=== PATIENT | female | born 1945 | race Caucasian/White ===

== ENCOUNTER 2017-10-05 16:15 | Emergency (ER) | payer MEDICARE, BC ==
[2017-10-05 16:26] VITALS: BP 145/91; PULSE 77; RESP 16; TEMP 98
--- NOTE | 2017-10-05 17:15 | ED ---
General Adult HPI - General Chief complaint: Back Pain/Injury Stated complaint: Fall-Back Pain Time Seen by Provider: 10/05/17 16:28 Source: patient, RN notes reviewed Mode of arrival: wheelchair Limitations: no limitations - History of Present Illness Initial comments: Patient 72-year-old female presenting to the emergency room today with a chief complaint of lower back pain with radicular pain in both right and left leg. She does admit that she's had a history of chronic back pain. States that she' s been following up for this. She states that recently he began having some increased pain radiating down to the legs both left and right side. Patient states pain shoots down to the cafeteria bilaterally. Denies any bowel or bladder incontinence retention. Denies any saddle anesthesia. Patient states that she feels like her legs are weaker. Feels unsteady on her feet at times particularly when she goes up or down steps. Patient states she did have a fall today where she tripped up over the left leg falling down onto her knees bilaterally. Patient states her head injury and no other injury to her back or her knees. She states that this feels the same but she is concerned about the weakness. She most recently saw orthopedics for this yesterday. States that she was advised there was not much that he could do for him was advised to see pain management. She's been taking ibuprofen. Patient states that she did take one leftover steroid that she had 10 mg of prednisone. Patient denies any other complaints at this time.Patient denies any recent fever, chills, shortness of breath, chest pain, back pain, abdominal pain, nausea or vomiting, numbness or tingling, dysuria or hematuria, constipation or diarrhea, headaches or visual changes, or any other complaints. - Related Data Home Medications Medication Instructions Recorded Confirmed Albuterol Nebulized [Ventolin 2.5 mg INHALATION RT-Q6H PRN 10/05/17 10/05/17 Nebulized] Albuterol Sulfate [Proair Hfa] 2 puff INHALATION RT-Q6H PRN 10/05/17 10/05/17 Cholecalciferol [Vitamin D3] 1,000 unit PO DAILY 10/05/17 10/05/17 Glimepiride [Amaryl] 0.5 mg PO BID 10/05/17 10/05/17 Hydrochlorothiazide [Hydrodiuril] 50 mg PO DAILY 10/05/17 10/05/17 LORazepam [Ativan] 0.5 mg PO HS PRN 10/05/17 10/05/17 Metoprolol Tartrate [Lopressor] 100 mg PO BID 10/05/17 10/05/17 Naproxen Sodium [Aleve] 440 mg PO BID 10/05/17 10/05/17 Potassium Chloride [K-Tab ER] 20 meq PO DAILY 10/05/17 10/05/17 Zolpidem [Ambien] 10 mg PO HS 10/05/17 10/05/17 Previous Rx's Medication Instructions Recorded Cyclobenzaprine [Flexeril] 10 mg PO TID #20 tab 10/05/17 Dexamethasone 0.75 mg PO DIRECTED #12 tablet 10/05/17 Allergies Allergy/AdvReac Type Severity Reaction Status Date / Time levofloxacin [From Levaquin] AdvReac Confusion Verified 10/05/17 16:26 Review of Systems ROS Statement: Those systems with pertinent positive or pertinent negative responses have been documented in the HPI. ROS Other: All systems not noted in ROS Statement are negative. Past Medical History Past Medical History: Diabetes Mellitus, Hypertension History of Any Multi-Drug Resistant Organisms: None Reported Past Surgical History: Orthopedic Surgery Additional Past Surgical History / Comment(s): Cartaract surgery Past Psychological History: Anxiety Smoking Status: Never smoker Past Alcohol Use History: None Reported Past Drug Use History: None Reported General Exam - General Exam Comments Initial Comments: General: The patient is awake and alert, in no distress, and does not appear acutely ill. Eye: Pupils are equal, round and reactive to light, extra-ocular movements are intact. No nystagmus. There is normal conjunctiva bilaterally. No signs of icterus. Ears, nose, mouth and throat: There are moist mucous membranes and no oral lesions. Neck: The neck is supple, there is no tenderness or JVD. Musculoskeletal: Normal ROM, no tenderness. Strength 5/5. Sensation intact. Pulses equal bilaterally 2+. Patient has been Rodriguez here in the emergency room walking to the bathroom and back without any assistance. Neurological: A&O x 3. CN II-XII intact, There are no obvious motor or sensory deficits. Coordination appears grossly intact. Speech is normal. Skin: Skin is warm and dry and no rashes or lesions are noted. Psychiatric: Cooperative, appropriate mood & affect, normal judgment. Limitations: no limitations Course Vital Signs 10/05/17 16:22 Temperature 98.0 F Pulse Rate 77 Respiratory 16 Rate Blood Pressure 145/91 O2 Sat by Pulse 95 Oximetry Medical Decision Making - Medical Decision Making Case discussed in detail with attending physician Dr. Skelton. Patient reexamined at this time shows no signs of distress resting comfortably. Patient strength 5/5. Patient does have pain shooting down both left and right leg has been increasing. Patient has no saddle anesthesia. No bowel or bladder incontinence retention. At this time patient will be started on a muscle relaxer advised to use this first see if there is any relief of her symptoms. She will be given this prescription to go home as she does not have a ride home. Patient also be given a prescription for steroid. She is a diabetic. She is advised that this will elevate her blood sugars and to continue to monitor these. She is advised close follow-up over the next 2 days to try to set up a MRI with family doctor. Advised return if symptoms increase worsen. Patient states understanding and is in agreement. Disposition Clinical Impression: Lumbar radiculopathy Disposition: HOME SELF-CARE Condition: Good Instructions: Lumbar Radiculopathy (ED) Additional Instructions: Please follow-up the family doctor tomorrow as discussed to try to set up MRI. Please use medications as discussed. Please return here to the emergency room if symptoms increase or worsen or for new concerns. Prescriptions: Cyclobenzaprine [Flexeril] 10 mg PO TID #20 tab Dexamethasone 0.75 mg PO DIRECTED #12 tablet Is patient prescribed a controlled substance at d/c from ED?: No Referrals: Harlan Reid MD [Primary Care Provider] - 1-2 days Time of Disposition: 17:16
== END 2017-10-05 17:43 | disposition home or self-care (01) ==
LOC: EC 16:15
DX: M54.16 Radiculopathy, lumbar region (principal); E11.9 Type 2 diabetes mellitus without complications; I10 Essential (primary) hypertension; Z79.1 Long term (current) use of non-steroidal anti-inflammatories (NSAID); Z79.84 Long term (current) use of oral hypoglycemic drugs; Z79.899 Other long term (current) drug therapy; Z88.1 Allergy status to other antibiotic agents; W01.0XXA Fall on same level from slipping, tripping and stumbling without subsequent striking against object, initial encounter
CPT/HCPCS: 99283

== ENCOUNTER → 2017-11-18 | Outpatient (CLI) | payer MEDICARE, BC ==
[2017-11-18 14:28] LABS: Blood Urea Nitrogen 16 mg/dL (7-17)
--- NOTE | 2017-11-18 16:07 | CT ---
EXAMINATION TYPE: CT angio chest DATE OF EXAM: 11/18/2017 COMPARISON: Chest x-ray dated 08/30/2017 HISTORY: Recent laminectomy, concerns with shortness of breath CT DLP: 639 mGycm Automated exposure control for dose reduction was used. CONTRAST: CTA scan of the thorax is performed with IV Contrast, patient injected with 100 mL of Isovue 370, pul monary embolism protocol. MIP images are created and reviewed. 3D reconstructed images are created on an independent workstation and reviewed. FINDINGS: LUNGS: There are air bronchograms present at the right lung base along the elevated right hemidiaphra gm similar to chest x-ray, findings may be chronic and due to scarring. Emphysematous changes are pre sent especially at the apices. There is some artifact due to patient's shoulder arthroplasty obscurin g some detail, some minimal pleural thickening suspected superiorly along the posterior aspect of the lungs. AORTA: No additional significant abnormality is seen. MEDIASTINUM: Borderline enlarged node present at the aorticopulmonary window. No filling defect withi n the pulmonary arteries to suggest pulmonary embolism. There is a hiatal hernia present. OTHER: Degenerative disc changes are present in the visualized spine. Possible nonobstructive calcul us present within the right kidney at the upper and lower pole. Surgical clips present in the gallbla dder fossa, gallbladder is absent. The liver is enlarged. There is colonic interposition anterior to the liver. Postop change suspected within the subcutaneous tissues superficial to the posterior lumba r spine. IMPRESSION: NO EVIDENT PULMONARY EMBOLISM. CORRELATE TO EXCLUDE PNEUMONIA, CHRONIC ELEVATION OF THE RIGHT HEMIDIA PHRAGM WITH POSSIBLE ASSOCIATED ATELECTASIS OR SCARRING. EMPHYSEMA. BORDERLINE ENLARGED MEDIASTINAL L YMPH NODE. SUSPECT RIGHT NONOBSTRUCTIVE NEPHROLITHIASIS. POSTOP CHANGES. ADDITIONAL FINDINGS ABOVE.
== END | disposition home or self-care (01) ==
LOC: RADCTMAIN 13:55
PROVIDERS: ATTEND Internal Medicine Critical Care Medicine
DX: J43.9 Emphysema, unspecified (principal); R59.0 Localized enlarged lymph nodes
CPT/HCPCS: 82565; 84520; 71275; 36415; Q9967

== ENCOUNTER 2019-02-04 22:11 | Emergency (ER) | payer MEDICARE, BC ==
--- NOTE | 2019-02-04 22:41 | ED ---
General Adult HPI - General Stated complaint: Fall Time Seen by Provider: 02/04/19 22:17 - History of Present Illness Initial comments: Chief complaint history of present illness this is a 73-year-old female here with her son. The gait patient came via EMS. The patient was at a family function. She reportedly had one and a half glasses of wine. She's bending over to look at a baby tripped falling bumping her head on a chair. The patient was momentarily unconscious for less than 5 seconds per family. But she was mildly confused for several minutes. This time the patient reports she remembers hearing her son's voice. Otherwise no nausea no vomiting. She denies any numbness or tingling. She does present with a 1 inch laceration in the middle of her forehead. Mild neck discomfort. Patient presented emergency room with a [place] collar on but she removed it. No numbness no tingling to her extremities - Related Data Home Medications Medication Instructions Recorded Confirmed Hydrochlorothiazide [Hydrodiuril] 50 mg PO DAILY 10/05/17 02/04/19 Metoprolol Tartrate [Lopressor] 100 mg PO BID 10/05/17 02/04/19 Potassium Chloride [K-Tab ER] 20 meq PO DAILY 10/05/17 02/04/19 Acetaminophen Tab [Tylenol Tab] 650 mg PO Q6H PRN 02/04/19 02/04/19 Cephalexin [Keflex] 500 mg PO Q12H 02/04/19 02/04/19 Dulaglutide [Trulicity] 1.5 mg SQ SA 02/04/19 02/04/19 Uro Blue 1 tab PO TID PRN 02/04/19 02/04/19 Zolpidem [Ambien] 10 mg PO HS 02/04/19 02/04/19 metFORMIN HCL ER [Glucophage Xr] 500 mg PO BID 02/04/19 02/04/19 Allergies Allergy/AdvReac Type Severity Reaction Status Date / Time levofloxacin [From Levaquin] AdvReac Confusion Verified 02/04/19 22:48 Review of Systems ROS Statement: Those systems with pertinent positive or pertinent negative responses have been documented in the HPI. Review of systems. The patient has mild headache. No change in visual acuity. She does have a 1 inch laceration of middle of her forehead. Mild discomfort to her neck. The patient removed her c-collar. Denies any chest pain shows breath GI/ problems. All systems reviewed. No evidence of any neuro deficits. Past medical problems significant for currently being treated for UTI the patient's urine is blue in color from medications taking in addition to the Keflex. Patient has diabetes type 2, hypertension and COPD. Surgeries include back, gallbladder, hysterectomy, kidney stones and shoulder surgery. Family history cancers include a son who of colon cancer at age of 49 and her father had esophageal carcinoma. The son who is at bedside was reminded to get his colonoscopies. Patient's an ex-smoker quit 20 years ago. She did have 2 glasses of wine prior to the fall. Patient denies any ALLERGIES a certain odors cause her to be short of breath ROS Other: All systems not noted in ROS Statement are negative. Past Medical History Past Medical History: Diabetes Mellitus, Hypertension History of Any Multi-Drug Resistant Organisms: None Reported Past Surgical History: Orthopedic Surgery Additional Past Surgical History / Comment(s): Cartaract surgery Past Psychological History: Anxiety Smoking Status: Never smoker Past Alcohol Use History: None Reported Past Drug Use History: None Reported General Exam - General Exam Comments Initial Comments: General: The patient is awake and alert, patient arrived via EMS after stumbling and falling and bumping her head. She presents with a laceration in the middle of her for it. Denies nausea or vomiting. Eye: Pupils are equal, round and reactive to light, extra-ocular movements are intact; there is normal conjunctiva bilaterally. No signs of icterus. Ears, nose, mouth and throat: There are moist mucous membranes and no oral lesions. Neck: The neck is supple, patient states on examination and questioning that she has mild neck discomfort. Cardiovascular: No chest pain or chest wall pain no complaint of palpitations. Respiratory: No complaint of shortness of breath noted she appeared short of breath. Gastrointestinal: No abdominal discomfort Back: No back pain, able to twist without difficulty Musculoskeletal: Normal ROM, no tenderness, There is no pedal edema. There is no calf tenderness or swelling. Sensation intact. Pulses equal bilaterally 2+. Neurological: CN II-XII intact, There are no obvious motor or sensory deficits. Coordination appears grossly intact. Speech is normal. No focal or lateralizing findings Skin: Skin is warm and dry and no rashes or lesions are noted. Psychiatric: Cooperative, appropriate mood & affect, normal judgment. Course Vital Signs 02/04/19 22:11 Temperature 97.6 F Pulse Rate 101 H Respiratory 18 Rate Blood Pressure 122/83 O2 Sat by Pulse 95 Oximetry Procedures - [place] Protocol (Time Out) Procedure Performed:: Laceration repair - Laceration Laceration #1 Consent Obtained: verbal consent Indication: laceration Site: face Size (cm): 2 (Mildly irregular edges) Description: linear Depth: involves muscle layer Sedation/Analgesia: none Anesthetic Used: lidocaine 1%, without epi Anesthesia Technique: local infiltration Amount (mls): 5 Pre-repair: wound explored, irrigated extensively Type of Sutures: nylon, vicryl Size of Sutures: 6-0 Number of Sutures: 6 Technique: simple, interrupted Patient Tolerated Procedure: well Medical Decision Making - Medical Decision Making Medical decision making; this is a 73-year-old female here with her son. The pa tient bent over at home falling forward causing a laceration to her head and temporary loss of consciousness. No neuro deficits found. CT of the brain and cervical spine were done and the radiologist's impression of the cervical spine and cervical spine without intravenous contrast vertebral, no acute fracture. Disc spinal canal neural foramina, multilevel degenerative disc disease. Mild spinal canal stenosis at C4-C5, C5-C6, C6-C7 secondary to degenerative changes. No acute fracture or subluxation. Soft tissue severe pulmonary central lobar emphysema. The patient's CT of the head showed no acute hemorrhage, hydrocephalus, or mass effect. As read by Dr. Del Toro Patient had the wound cleaned and anesthetized and sutured. See suture no. Patient will have sutures removed in 5 days or earlier should be signs of infection. Disposition Clinical Impression: Concussion, Laceration Disposition: HOME SELF-CARE Condition: Fair Instructions (If sedation given, give patient instructions): Concussion (ED), Facial Laceration (ED) Additional Instructions: Return emergency room in 5 days to have sutures removed or earlier should be signs of infection. Apply ice over the area. Do not apply bacitracin to the wound. Is patient prescribed a controlled substance at d/c from ED?: No Referrals: Nas Damian MD [REFERRING] - 1-2 days Time of Disposition: 00:18
[2019-02-04 23:21] VITALS: TEMP 97.6
[2019-02-04] MEDS ORDERED: LIDOCAINE 1% INJ 10MG/ML (20 ML MDV) SQ STA (23:36)
--- NOTE | 2019-02-04 23:49 | CT ---
EXAM: CT Head Without Intravenous Contrast CLINICAL HISTORY: ITS.REASON CT Reason: Patient fell on her face TECHNIQUE: Axial computed tomography images of the head/brain without intravenous contrast. CTDI is 45 mGy and DLP is 1015 mGy-cm. This CT exam was performed using one or more of the following dose reduction techniques: automated exposure control, adjustment of the mA and/or kV according to patient size, and/or use of iterative reconstruction technique. COMPARISON: No relevant prior studies available. FINDINGS: Brain: No hemorrhage or mass effect. Small hypodensities in the bilateral basal ganglia, possibly old lacunar infarcts or prominent perivascular space. Ventricles: No hydrocephalus. Bones/joints: Unremarkable. Soft tissues: Left frontal scalp soft tissue swelling. Sinuses: Unremarkable. Mastoid air cells: Clear. IMPRESSION: No acute hemorrhage, hydrocephalus, or mass effect. EXAM: CT Cervical Spine Without Intravenous Contrast CLINICAL HISTORY: ITS.REASON CT Reason: Patient fell on her face TECHNIQUE: Axial computed tomography images of the cervical spine without intravenous contrast. CTDI is 13 mGy and DLP is 329 mGy-cm. This CT exam was performed using one or more of the following dose reduction techniques: automated exposure control, adjustment of the mA and/or kV according to patient size, and/or use of iterative reconstruction technique. COMPARISON: No relevant prior studies available. FINDINGS: Vertebrae: No acute fracture. Discs/spinal canal/neural foramina: Multilevel degenerative disc disease. Mild spinal canal stenosis at C4-5, C5-C6, C6-7 secondary to degenerative changes. Soft tissues: Severe pulmonary centrilobular emphysema. IMPRESSION: No acute fracture or subluxation.
[2019-02-05 00:38] VITALS: BP 127/86; PULSE 98; RESP 16
== END 2019-02-05 00:36 | disposition home or self-care (01) ==
LOC: EC 22:11
DX: S06.0X1A Concussion with loss of consciousness of 30 minutes or less, initial encounter (principal); S01.81XA Laceration without foreign body of other part of head, initial encounter; M48.02 Spinal stenosis, cervical region; M50.30 Other cervical disc degeneration, unspecified cervical region; M47.812 Spondylosis without myelopathy or radiculopathy, cervical region; E11.9 Type 2 diabetes mellitus without complications; I10 Essential (primary) hypertension; Z79.84 Long term (current) use of oral hypoglycemic drugs; Z79.899 Other long term (current) drug therapy; Z88.1 Allergy status to other antibiotic agents; W01.198A Fall on same level from slipping, tripping and stumbling with subsequent striking against other object, initial encounter; Y92.009 Unspecified place in unspecified non-institutional (private) residence as the place of occurrence of the external cause
CPT/HCPCS: 72125; 70450; 99283; 12011; J2001

== ENCOUNTER 2019-02-24 10:43 | Inpatient (IN) | payer MEDICARE, BC ==
[2019-02-24] MEDS ORDERED: VANCOMYCIN IV PER PHARMACY 1 EACH MISC MISCELLANE PRN (11:08)
[2019-02-24] MEDS ORDERED: CEFEPIME 2 GM in SODIUM CHLORIDE 0.9% 100 ML IVPB STA (11:08)
[2019-02-24] MEDS ORDERED: VANCOMYCIN 1,250 MG in SODIUM CHLORIDE 0.9% 250 ML IVPB STA (11:12)
--- NOTE | 2019-02-24 11:36 | ED ---
General Adult HPI - General Chief complaint: Shortness of Breath Stated complaint: pneumonia Time Seen by Provider: 02/24/19 10:56 Source: patient Mode of arrival: wheelchair Limitations: no limitations - History of Present Illness Initial comments: Dictation was produced using [employer] dictation software. please excuse any grammatical, word or spelling errors. Chief Complaint: 73-year-old female sent in by machine striper for persistent dyspnea and generalized weakness. History of Present Illness: 73-year-old female she completed a 5 day course of azithromycin for community acquired pneumonia. 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 Patient has been having pneumonia symptoms for the past 7-8 days. She believes she contracted this infection from work. Patient was initially seen by her machine striper Dr. Bai who diagnosed her with great acquired lobar pneumonia to the right middle lobe. Patient fully 5 days of antibiotics. She went to her machine striper for follow-up appointment. She is found to be tachycardic and feeling more sick. She is told to come to the emergency department. Patient states she's been feeling weaker than usual. She still has a persistent cough and some mild dyspnea. Patient denies any overt constitutional symptoms at this time. No nausea vomiting. Denies any recent travel. She does report some diarrhea but believes this is from antibiotic administration. The ROS documented in this emergency department record has been reviewed and confirmed by me. Those systems with pertinent positive or negative responses have been documented in the HPI. All other systems are other negative and/or noncontributory. PHYSICAL EXAM: General Impression: Alert and oriented x3, not in acute distress HEENT: Normocephalic atraumatic, extra-ocular movements intact, pupils equal and reactive to light bilaterally, Cardiovascular: Tachycardic, no murmurs Chest: Back going to the right middle lobe posteriorly with egophony Abdomen: Bowel sounds present, abdomen soft, non-tender, non-distended, no organomegaly Musculoskeletal: Pulses present and equal in all extremities, no peripheral edema Motor: no focal deficits noted Neurological: CN II-XII grossly intact, no focal motor or sensory deficits noted Skin: Intact with no visualized rashes Psych: Normal affect and mood ED course: 73 y Old female clinical presentation consistent with pneumonia, failed outpatient treatment. On arrival shows heart rate of 1:30, rest vital signs within acceptable limits. Medications were reviewed. Labs evaluation obtained no leukocytosis. Coag panel unremarkable. Metabolic panel shows lactic acidosis 2.4 with glucose of 164. Magnesium 1.3. Urinalysis consistent with hemorrhagic cystitis. Chest x-ray shows right mono lobar pneumonia. Patient covered with broad spectrum antibiotics. Patient's click or presentation concerning for early sepsis. Patient given intravenous fluids. Pending blood cultures and urine cultures. [facility] Hand. Pulmonology to be on consult. Patient understandable and agreeable with plan. EKG interpretation: Ventricular rate 122, sinus tachycardia, AK interval 120, QS 116, QTc 504. QT prolongation. No old EKG for comparison - Related Data Home Medications Medication Instructions Recorded Confirmed Metoprolol Tartrate [Lopressor] 100 mg PO BID 10/05/17 02/24/19 Acetaminophen Tab [Tylenol Tab] 650 mg PO Q6H PRN 02/04/19 02/24/19 Cephalexin [Keflex] 500 mg PO Q12H 02/04/19 02/24/19 Dulaglutide [Trulicity] 1.5 mg SQ SA 02/04/19 02/24/19 Zolpidem [Ambien] 10 mg PO HS 02/04/19 02/24/19 metFORMIN HCL ER [Glucophage Xr] 500 mg PO BID 02/04/19 02/24/19 Azithromycin [Zithromax] 500 mg PO DAILY 02/24/19 02/24/19 Allergies Allergy/AdvReac Type Severity Reaction Status Date / Time levofloxacin [From Levaquin] AdvReac Confusion Verified 02/24/19 11:39 Review of Systems ROS Statement: Those systems with pertinent positive or pertinent negative responses have been documented in the HPI. ROS Other: All systems not noted in ROS Statement are negative. Past Medical History Past Medical History: Diabetes Mellitus, Hypertension, Pneumonia, Syncope History of Any Multi-Drug Resistant Organisms: None Reported Past Surgical History: Orthopedic Surgery Additional Past Surgical History / Comment(s): Cartaract surgery Past Psychological History: Anxiety Smoking Status: Never smoker Past Alcohol Use History: None Reported Past Drug Use History: None Reported General Exam Limitations: no limitations Course Vital Signs 02/24/19 02/24/19 02/24/19 10:44 11:29 11:30 Temperature 97.8 F Pulse Rate 130 H 118 H Respiratory 22 20 18 Rate Blood Pressure 125/76 113/74 O2 Sat by Pulse 94 L 95 Oximetry Medical Decision Making - Lab Data Result diagrams: 02/24/19 11:08 02/24/19 11:08 Lab Results 02/24/19 02/24/19 02/24/19 Range/Units 11:08 11:08 11:08 WBC 9.1 (3.8-10.6) k/uL RBC 4.16 (3.80-5.40) m/uL Hgb 13.2 (11.4-16.0) gm/dL Hct 38.9 (34.0-46.0) % MCV 93.4 (80.0-100.0) fL MCH 31.7 (25.0-35.0) pg MCHC 33.9 (31.0-37.0) g/dL RDW 12.2 (11.5-15.5) % Plt Count 336 (150-450) k/uL Neutrophils % 74 % Lymphocytes % 9 % Monocytes % 10 % Eosinophils % 2 % Basophils % 3 % Neutrophils # 6.7 (1.3-7.7) k/uL Lymphocytes # 0.8 L (1.0-4.8) k/uL Monocytes # 0.9 (0-1.0) k/uL Eosinophils # 0.2 (0-0.7) k/uL Basophils # 0.2 (0-0.2) k/uL PT (9.0-12.0) sec INR (<1.2) APTT (22.0-30.0) sec Sodium 137 (137-145) mmol/L Potassium 3.9 (3.5-5.1) mmol/L Chloride 98 (98-107) mmol/L Carbon Dioxide 23 (22-30) mmol/L Anion Gap 16 mmol/L BUN 13 (7-17) mg/dL Creatinine 0.72 (0.52-1.04) mg/dL Est GFR (CKD-EPI)AfAm >90 (>60 ml/min/1.73 sqM) Est GFR (CKD-EPI)NonAf 85 (>60 ml/min/1.73 sqM) Glucose 164 H (74-99) mg/dL Plasma Lactic Acid Judson 2.4 H* (0.7-2.0) mmol/L Calcium 9.4 (8.4-10.2) mg/dL Magnesium (1.6-2.3) mg/dL Total Bilirubin 0.5 (0.2-1.3) mg/dL AST 20 (14-36) U/L ALT 34 (9-52) U/L Alkaline Phosphatase 90 (38-126) U/L Total Protein 6.8 (6.3-8.2) g/dL Albumin 3.8 (3.5-5.0) g/dL Urine Color Urine Appearance (Clear) Urine pH (5.0-8.0) Ur Specific [place] (1.001-1.035) Urine Protein (Negative) Urine Glucose (UA) (Negative) Urine Ketones (Negative) Urine Blood (Negative) Urine Nitrite (Negative) Urine Bilirubin (Negative) Urine Urobilinogen (<2.0) mg/dL Ur Leukocyte Esterase (Negative) Urine RBC (0-5) /hpf Urine WBC (0-5) /hpf Urine WBC Clumps (None) /hpf Ur Squamous Epith Cells (0-4) /hpf Urine Bacteria (None) /hpf Urine Mucus (None) /hpf 02/24/19 02/24/19 02/24/19 Range/Units 11:08 11:08 12:26 WBC (3.8-10.6) k/uL RBC (3.80-5.40) m/uL Hgb (11.4-16.0) gm/dL Hct (34.0-46.0) % MCV (80.0-100.0) fL MCH (25.0-35.0) pg MCHC (31.0-37.0) g/dL RDW (11.5-15.5) % Plt Count (150-450) k/uL Neutrophils % % Lymphocytes % % Monocytes % % Eosinophils % % Basophils % % Neutrophils # (1.3-7.7) k/uL Lymphocytes # (1.0-4.8) k/uL Monocytes # (0-1.0) k/uL Eosinophils # (0-0.7) k/uL Basophils # (0-0.2) k/uL PT 9.7 (9.0-12.0) sec INR 0.9 (<1.2) APTT 28.5 (22.0-30.0) sec Sodium (137-145) mmol/L Potassium (3.5-5.1) mmol/L Chloride (98-107) mmol/L Carbon Dioxide (22-30) mmol/L Anion Gap mmol/L BUN (7-17) mg/dL Creatinine (0.52-1.04) mg/dL Est GFR (CKD-EPI)AfAm (>60 ml/min/1.73 sqM) Est GFR (CKD-EPI)NonAf (>60 ml/min/1.73 sqM) Glucose (74-99) mg/dL Plasma Lactic Acid Judson (0.7-2.0) mmol/L Calcium (8.4-10.2) mg/dL Magnesium 1.3 L (1.6-2.3) mg/dL Total Bilirubin (0.2-1.3) mg/dL AST (14-36) U/L ALT (9-52) U/L Alkaline Phosphatase (38-126) U/L Total Protein (6.3-8.2) g/dL Albumin (3.5-5.0) g/dL Urine Color Yellow Urine Appearance Cloudy H (Clear) Urine pH 5.5 (5.0-8.0) Ur Specific [place] 1.013 (1.001-1.035) Urine Protein 1+ H (Negative) Urine Glucose (UA) Negative (Negative) Urine Ketones Negative (Negative) Urine Blood Large H (Negative) Urine Nitrite Positive H (Negative) Urine Bilirubin Negative (Negative) Urine Urobilinogen <2.0 (<2.0) mg/dL Ur Leukocyte Esterase Large H (Negative) Urine RBC >182 H (0-5) /hpf Urine WBC >182 H (0-5) /hpf Urine WBC Clumps Many H (None) /hpf Ur Squamous Epith Cells 4 (0-4) /hpf Urine Bacteria Occasional H (None) /hpf Urine Mucus Occasional H (None) /hpf Disposition Clinical Impression: Sepsis, PNA (pneumonia), UTI (urinary tract infection) Disposition: ADMITTED IP TO THIS HOSP Condition: Fair Referrals: Katherin De León MD [Primary Care Provider] - 1-2 days Decision Time: 14:20
[2019-02-24 11:38] LABS: Basophils # (A) 0.2 k/uL (0-0.2); Basophils % (A) 3 %; Eosinophils # (A) 0.2 k/uL (0-0.7); Eosinophils % (A) 2 %; HCT 38.9 % (34.0-46.0); HGB 13.2 gm/dL (11.4-16.0); Lymphocytes # (A) 0.8 k/uL (1.0-4.8); Lymphocytes % (A) 9 %; MCH 31.7 pg (25.0-35.0); MCHC 33.9 g/dL (31.0-37.0); MCV 93.4 fL (80.0-100.0); Mean Platelet Volume 6.7; Monocytes # (A) 0.9 k/uL (0-1.0); Monocytes % (A) 10 %; Neutrophils # (A) 6.7 k/uL (1.3-7.7); Neutrophils % (A) 74 %; Platelet Count 336 k/uL (150-450); RBC 4.16 m/uL (3.80-5.40); RDW 12.2 % (11.5-15.5); WBC 9.1 k/uL (3.8-10.6)
[2019-02-24 11:43] LABS: INR 0.9 (<1.2); Partial Thromboplastin Time 28.5 sec (22.0-30.0); Prothrombin Time 9.7 sec (9.0-12.0)
[2019-02-24 11:45] LABS: ALT 34 U/L (9-52); AST 20 U/L (14-36); African American GFR (CKD) >90 (>60 ml/min/1.73 sqM); Albumin 3.8 g/dL (3.5-5.0); Alkaline Phosphatase 90 U/L (38-126); Anion Gap 16 mmol/L; Blood Urea Nitrogen 13 mg/dL (7-17); Calcium 9.4 mg/dL (8.4-10.2); Carbon Dioxide 23 mmol/L (22-30); Chloride 98 mmol/L (98-107); Glucose 164 mg/dL (74-99); Potassium 3.9 mmol/L (3.5-5.1); Sodium 137 mmol/L (137-145); Total Bilirubin 0.5 mg/dL (0.2-1.3); Total Protein 6.8 g/dL (6.3-8.2)
[2019-02-24] MEDS: SODIUM CHLORIDE 0.9% 500 ML 500 ML IV SCH ×3 (11:49→13:10)
--- NOTE | 2019-02-24 12:02 | XR ---
EXAMINATION TYPE: XR chest 2V DATE OF EXAM: 02/24/2019 COMPARISON: 02/20/2019 HISTORY: Shortness of breath. Concern for pneumonia. History of pneumonia. TECHNIQUE: Frontal and lateral views of the chest are obtained. FINDINGS: Increasing right lateral lung opacity suspicious for unifocal pneumonia although follow-up to resolution is recommended to exclude mass. Chronic right hemidiaphragm elevation is seen with rig ht hemithorax volume loss. Left lung remains well aerated. Cardiomediastinal silhouette is stable. Ri ght humeral arthroplasty and diffuse osseous demineralization are redemonstrated. IMPRESSION: Right basilar consolidation suspicious for unifocal pneumonia. Follow-up to resolution t o exclude nodule.
[2019-02-24 13:24] LABS: Appearance,Urine Cloudy (Clear); Bacteria,Urine Occasional /hpf; Bilirubin,Urine Negative (Negative); Blood,Urine Large (Negative); Color,Urine Yellow; Glucose,Urine (UA) Negative (Negative); Ketones,Urine Negative (Negative); Leukocyte Esterase,Urine Large (Negative); Mucus,Urine Occasional /hpf; Nitrite,Urine Positive (Negative); PH, Urine 5.5 (5.0-8.0); Protein,Urine 1+ (Negative); RBC,Urine >182 /hpf (0-5); Specific Gravity,Urine 1.013 (1.001-1.035); Squamous Epithelial Cell,Urine 4 /hpf (0-4); Urobilinogen,Urine <2.0 mg/dL (<2.0); WBC,Urine >182 /hpf (0-5)
[2019-02-24] MEDS: MAGNESIUM SULFATE-D5W PMX 1 GM in DEXTROSE/WATER 1 100ML.BAG IVPB SCH ×2 (15:32→17:16)
[2019-02-24] MEDS: HEPARIN SODIUM,PORCINE 5,000 UNIT/ML 1 ML VIAL SQ SCH ×2 (15:32→23:06)
[2019-02-24 15:34] LABS: Glucose,Whole Blood 126 mg/dL (75-99)
[2019-02-24] MEDS ORDERED: SODIUM CHLORIDE 0.9% 1,000 ML IV SCH (15:45)
--- NOTE | 2019-02-24 15:48 | P.CNPUL ---
History of Present Illness Consult date: 02/24/19 Reason for consult: dyspnea, cough, pneumonia, other Chief complaint: Dyspnea, generalized weakness History of present illness: This is 73-year-old white female patient of Dr. 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 She was in Dr. Bai's office for follow-up after being treated for acute tracheobronchitis, and patient completed a course of azithromycin. Most recently 3 weeks ago patient sustained a fall, where she lost consciousness briefly for a few seconds, and apparently patient had stumbled and bumped her head. She injured the left side of her body and facial area. She denies any loss of bladder control, she was very short of breath after she awoke. She was seen in the emergency department, and her laceration on her forehead was sutured. Patient at that time was finishing her outpatient course of Keflex for urinary tract infection. She follows with the urologist from [place], and apparently has been having hematuria, in the past she had she's had kidney stones with lithotripsy. In the emergency department CT of the brain and cervical spine were negative, was no acute intracranial process, or acute fracture or subluxation. Patient also has underlying history of severe COPD, with FEV1 of 65% of predicted, patient is a smoker, she also has history of right to have intermittent paralysis status post diaphragmatic plication in 2013 that [facility]. She has been battling with cough, and congestion, and failed to improve despite the outpatient treatment. Chest x-ray was taken in the ED showing right basilar consolidation suspicious for unifocal pneumonia. Patient also had evidence of gross pyuria, and hematuria with positive nitrates and leukocyte esterase in the urinalysis, white blood cell count was within normal limits at 9.1, electrodes and renal profile was normal, lactic acid was elevated at 2.4. Patient was afebrile, but tachycardic with a rate of 122 to 1:30 BPM, EKG showed sinus tachycardia with incomplete right bundle branch block pattern, no acute ischemic changes. She received a dose of cefepime and vancomycin in the emergency department, she was started on breathing treatments, and were seen this patient in consultation for possibility of right lower lobe pneumonia Review of Systems All systems: negative Constitutional: Reports weakness, Denies chills, Denies fever Eyes: denies blurred vision, denies pain Ears, nose, mouth and throat: Denies headache, Denies sore throat Cardiovascular: Denies chest pain, Denies shortness of breath Respiratory: Reports dyspnea, Denies cough Gastrointestinal: Denies abdominal pain, Denies diarrhea, Denies nausea, Denies vomiting Genitourinary: Denies dysuria, Denies hematuria Musculoskeletal: Denies myalgias Integumentary: Denies pruritus, Denies rash Neurological: Reports syncope, Reports weakness, Denies numbness Psychiatric: Denies anxiety, Denies depression Endocrine: Denies fatigue, Denies weight change Past Medical History Past Medical History: Diabetes Mellitus, Hypertension, Pneumonia, Syncope History of Any Multi-Drug Resistant Organisms: None Reported Past Surgical History: Orthopedic Surgery Additional Past Surgical History / Comment(s): Cartaract surgery Past Psychological History: Anxiety Smoking Status: Never smoker Past Alcohol Use History: None Reported Past Drug Use History: None Reported Medications and Allergies Home Medications Medication Instructions Recorded Confirmed Type Metoprolol Tartrate [Lopressor] 100 mg PO BID 10/05/17 02/24/19 History Acetaminophen Tab [Tylenol Tab] 650 mg PO Q6H PRN 02/04/19 02/24/19 History Cephalexin [Keflex] 500 mg PO Q12H 02/04/19 02/24/19 History Dulaglutide [Trulicity] 1.5 mg SQ SA 02/04/19 02/24/19 History Zolpidem [Ambien] 10 mg PO HS 02/04/19 02/24/19 History metFORMIN HCL ER [Glucophage Xr] 500 mg PO BID 02/04/19 02/24/19 History Azithromycin [Zithromax] 500 mg PO DAILY 02/24/19 02/24/19 History Allergies Allergy/AdvReac Type Severity Reaction Status Date / Time levofloxacin [From Levaquin] AdvReac Confusion Verified 02/24/19 11:39 Physical Exam Vitals: Vital Signs Temp Pulse Resp BP Pulse Ox 02/24/19 14:36 97.8 F 103 H 18 155/88 93 L 02/24/19 11:30 18 02/24/19 11:29 118 H 20 113/74 95 02/24/19 10:44 97.8 F 130 H 22 125/76 94 L Intake and Output 02/24/19 02/24/1919 06:59 14:59 22:59 Other: Weight 69.853 kg GENERAL EXAM: Alert, pleasant, 73-year-old white female, comfortable in no apparent distress. HEAD: Normocephalic/atraumatic. There is a healed laceration on her forehead, and fading bruising in the left periorbital area NOSE: Clear with pink turbinates. THROAT: No erythema or exudates. NECK: No masses, no JVD, no thyroid enlargement, no adenopathy. CHEST: No chest wall deformity. Symmetrical expansion. LUNGS: Equal air entry with diminished breath sounds with diminished breath sounds over right lower lobe CVS: Regular rate and rhythm, normal S1 and S2, no gallops, no murmurs, no rubs ABDOMEN: Soft, nontender. No hepatosplenomegaly, normal bowel sounds, no gua rding or rigidity. EXTREMITIES: No clubbing, no edema, no cyanosis, 2+ pulses and upper and lower extremities. MUSCULOSKELETAL: Muscle strength and tone normal. SPINE: No scoliosis or deformity SKIN: No rashes CENTRAL NERVOUS SYSTEM: Alert and oriented -3. No focal deficits, tone is normal in all 4 extremities. PSYCHIATRIC: Alert and oriented -3. Appropriate affect. Intact judgment and insight. Results - Laboratory Findings CBC and BMP: 02/24/19 11:08 02/24/19 11:08 PT/INR, D-dimer PT 9.7 sec (9.0-12.0) 02/24/19 11:08 INR 0.9 (<1.2) 02/24/19 11:08 Abnormal lab findings: Abnormal Labs 02/24/19 02/24/19 02/24/19 11:08 11:08 11:08 Lymphocytes # 0.8 L Glucose 164 H Plasma Lactic Acid Judson 2.4 H* Magnesium Urine Appearance Urine Protein Urine Blood Urine Nitrite Ur Leukocyte Esterase Urine RBC Urine WBC Urine WBC Clumps Urine Bacteria Urine Mucus 02/24/19 02/24/19 11:08 12:26 Lymphocytes # Glucose Plasma Lactic Acid Judson Magnesium 1.3 L Urine Appearance Cloudy H Urine Protein 1+ H Urine Blood Large H Urine Nitrite Positive H Ur Leukocyte Esterase Large H Urine RBC >182 H Urine WBC >182 H Urine WBC Clumps Many H Urine Bacteria Occasional H Urine Mucus Occasional H - Diagnostic Findings Chest x-ray: report reviewed, image reviewed Additional studies: EKG reviewed Assessment and Plan Plan: Assessment: #1. Acute right lateral lung pneumonia, possibly community-acquired #2. Acute urinary tract infection, with failure of outpatient treatment, hematuria #3. Lactic acidosis, mild, improved with hydration #4. History of kidney stones, status post lithotripsy #5. Recent fall with loss of consciousness, with CT had and neck showing no acute process. Patient sustained laceration to her forehead, and bruising around her left eye #6. Diabetes mellitus type II #7. 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 Anxiety #10. Former smoker, quit smoking in June 2018 #11. Hypertension #12. Chronic pain syndrome Plan: We'll obtain a d-dimer, if the d-dimer is elevated we'll obtain CTA chest to rule out possibility of pulmonary embolism as a possible cause of patient's loss of consciousness and fall a few weeks ago. Chest x-ray has been reviewed showing right lateral lung density possibly related to pneumonia, patient has received 5 days of oral azithromycin on outpatient basis, will continue breathing treatments and will continue with Rocephin and vancomycin, blood and urine cultures have been sent and pending at this time, patient is afebrile, hemodynamically she is stable, denies any acute distress, is having hematuria, obtain bladder and renal ultrasound to rule out hydronephrosis, we'll continue to follow. I performed a history & physical examination of the patient and discussed their management with my nurse practitioner, Sravanthi Mckay. I reviewed the nurse practitioner's note and agree with the documented findings and plan of care. Lung sounds are positive for diminished breath sounds. The findings and the impression was discussed with the patient. I attest to the documentation by the nurse practitioner. Time with Patient: Greater than 30
--- NOTE | 2019-02-24 15:56 | US ---
EXAMINATION TYPE: US renals and bladder DATE OF EXAM: 02/24/2019 COMPARISON: NONE CLINICAL HISTORY: hematuria/. Patient states history of renal stones with lithotripsy and basket retr ieval of stones bilaterally. EXAM MEASUREMENTS: Right Kidney: 12.1 x 5.5 x 6.0 cm Left Kidney: 10.7 x 5.8 x 5.4 cm Technically difficult exam due to being performed portable. Patient unable to hold breat. Ribs are ov erlying right kidney. Right Kidney: stone lower pole measures 1.0 x 0.6 x 0.8 cm. Left Kidney: Lobular contour, stone lower pole measures 0.9 x 0.7 cm. Mass affect laterally measures 2.9 x 2.2 x 3.3 cm could represent mass versus regular tissue. Bladder: not well distended and therefore limited. Bilateral Jets seen: No No hydronephrosis. IMPRESSION: 1. There is a 1 cm nonobstructing lower pole right renal calculus. 2. There is suspicion for a solid left renal mass. Recommend CT scan imaging to exclude a 3 cm cortic al mass within the left kidney.
[2019-02-24] MEDS ORDERED: ACETAMINOPHEN TAB 500 MG TAB PO PRN ×2 (17:00→17:20)
[2019-02-24 17:14] VITALS: BMI 24.9
[2019-02-24] MEDS ORDERED: NALOXONE 0.4 MG/ML 1 ML VIAL IV PRN (17:16)
[2019-02-24] MEDS ORDERED: ONDANSETRON 4 MG/2 ML VIAL IVP PRN (17:16)
[2019-02-24] MEDS: ACETAMINOPHEN TAB 325 MG TAB PO PRN (17:26)
--- NOTE | 2019-02-24 17:42 | P.HPIM ---
History of Present Illness H&P Date: 02/24/19 Chief Complaint: UTI, pneumonia sepsis 73-year-old female with PMH of diabetes mellitus, hypertension presents the ED for cough and urinary symptoms. Patient was initially seen last Wednesday by Dr. Bai in the pulmonology clinic for symptoms of cough productive with brown sputum. Chest x-ray was performed according to the patient that was suggestive of acute tracheobronchitis. She was prescribed a 10 day course of azithromycin. Patient reports on Wednesday she has experienced multiple episodes of watery diarrhea. She has about 2 bowel movements daily and denies any blood in her stool. This morning, patient did not feel better and woke up confused. This prompted her to go to the ED. Of note, patient reports difficulty urinating that has been ongoing for the past 3 weeks. She was treated with Keflex twice and continues to have symptoms related to UTI. She denies any dysuria or hematuria. Patient complains of a frontal headache that has been ongoing since his syncopal episode that she suffered 3 weeks ago. Patient reported losing consciousness for a few seconds and hit her head. There is no seizure-like activities, no bladder or bowel incontinence. She did complain of some shortness of breath after regaining consciousness. Laceration was sutured in the ED and she was sent home. Patient denies any lower extremities edema, nausea or vomiting, dizziness, numbness/weakness/tingling of the extremities. She does report fever and chills. She does report chest pain but only when coughing. Patient reports a decreased appetite during this illness. In the ED, patient was tachycardic to 130. Vital signs were otherwise stable. CBC was unremarkable. CMP was negative except for glucose of 164. D-dimer was elevated at 0.92. Coagulation panel was negative. Urinalysis showed positive nitrite and large leukocyte esterase. Patient is admitted for sepsis with pulmonology on consult. Review of Systems Pertinent positives and negatives as discussed in HPI, a complete review of systems was performed and all other systems are negative. Past Medical History Past Medical History: Diabetes Mellitus, Hypertension, Pneumonia, Syncope Additional Past Medical History / Comment(s): UTI that turned septic, kidney stones, bunionectomy History of Any Multi-Drug Resistant Organisms: None Reported Past Surgical History: Orthopedic Surgery Additional Past Surgical History / Comment(s): Cartaract surgery Past Anesthesia/Blood Transfusion Reactions: No Reported Reaction Past Psychological History: Anxiety Smoking Status: Never smoker Past Alcohol Use History: None Reported Past Drug Use History: None Reported - Past Family History Son(s) Family Medical History: Cancer Additional Family Medical History / Comment(s): Bone and colon ca, son just 2018. Mother Additional Family Medical History / Comment(s): Heart just stopped, and at 70. Father Family Medical History: Cancer Additional Family Medical History / Comment(s): esophageal cancer Medications and Allergies Home Medications Medication Instructions Recorded Confirmed Type Metoprolol Tartrate [Lopressor] 100 mg PO BID 10/05/17 02/24/19 History Dulaglutide [Trulicity] 1.5 mg SQ SA 02/04/19 02/24/19 History Zolpidem [Ambien] 10 mg PO HS 02/04/19 02/24/19 History metFORMIN HCL ER [Glucophage Xr] 500 mg PO BID-W/MEALS 02/04/19 02/24/19 History Acetaminophen [Tylenol Extra 1,000 mg PO Q8H PRN 02/24/19 02/24/19 History Strength] Albuterol Inhaler [Ventolin Hfa 1 puff PO Q6H PRN 02/24/19 02/24/19 History Inhaler] Budesonide-Formot 160-4.5 Mcg 2 puff INHALATION BID 02/24/19 02/24/19 History [Symbicort 160-4.5 Mcg Inhaler] Cholecalciferol [Vitamin D3 (25 5,000 unit PO DAILY 02/24/19 02/24/19 History Mcg = 1000 Iu)] Allergies Allergy/AdvReac Type Severity Reaction Status Date / Time levofloxacin [From Levaquin] AdvReac Confusion Verified 02/24/19 11:39 Physical Exam Vitals: Vital Signs Temp Pulse Pulse Resp BP BP Pulse Ox 02/24/19 15:05 98.6 F 107 H 18 161/78 95 02/24/19 14:36 97.8 F 103 H 18 155/88 93 L 02/24/19 11:30 18 02/24/19 11:29 118 H 20 113/74 95 02/24/19 10:44 97.8 F 130 H 22 125/76 94 L Intake and Output 02/24/19 02/24/19 02/24/19 06:59 14:59 22:59 Intake Total 425 Balance 425 Intake: Intake, IV Titration 425 Amount Cefepime 2 gm In Sodium 100 Chloride 0.9% 100 ml @ 200 mls/hr IVPB ONCE [facility] Rx#:[id number] Magnesium Sulfate-D5w Pmx 200 1 gm In Dextrose/Water 1 100ml.bag @ 100 mls/hr IVPB Q1H [facility] Rx#: [id number] Vancomycin 1,250 mg In 125 Sodium Chloride 0.9% 250 ml @ 125 mls/hr IVPB Q12H [facility] Rx#:[id number] Other: # Voids 2 Weight 69.853 kg General: [non toxic], [no distress], [appears at stated age] Derm: [warm], [dry] Head: [atraumatic], [normocephalic], [symmetric] Eyes: [EOMI], [no lid lag], [anicteric sclera] Mouth: [no lip lesion], [mucus membranes moist] Cardiovascular: [S1S2 reg], [tachycardia], [positive DP pulse bilateral], Lungs: [Decreased breath sounds bilateral right greater than left], [no rhonchi, no rales] , [no accessory muscle use] Abdominal: [soft], [ nontender to palpation], [no guarding], [no appreciable organomegaly] Ext: [no gross muscle atrophy], [no edema], [no contractures] Neuro: [ CN II-XI grossly intact], [no focal neuro deficits] Psych: [Alert], [oriented], [appropriate affect] Results CBC & Chem 7: 02/24/19 11:08 02/24/19 11:08 Labs: Abnormal Lab Results - Last 24 Hours (Table) 02/24/19 02/24/19 02/24/19 Range/Units 11:08 11:08 11:08 Lymphocytes # 0.8 L (1.0-4.8) k/uL D-Dimer (<0.60) mg/L FEU Glucose 164 H (74-99) mg/dL POC Glucose (mg/dL) (75-99) mg/dL Plasma Lactic Acid Judson 2.4 H* (0.7-2.0) mmol/L Magnesium (1.6-2.3) mg/dL Urine Appearance (Clear) Urine Protein (Negative) Urine Blood (Negative) Urine Nitrite (Negative) Ur Leukocyte Esterase (Negative) Urine RBC (0-5) /hpf Urine WBC (0-5) /hpf Urine WBC Clumps (None) /hpf Urine Bacteria (None) /hpf Urine Mucus (None) /hpf 02/24/19 02/24/19 02/24/19 Range/Units 11:08 12:26 15:12 Lymphocytes # (1.0-4.8) k/uL D-Dimer 0.92 H (<0.60) mg/L FEU Glucose (74-99) mg/dL POC Glucose (mg/dL) (75-99) mg/dL Plasma Lactic Acid Judson (0.7-2.0) mmol/L Magnesium 1.3 L (1.6-2.3) mg/dL Urine Appearance Cloudy H (Clear) Urine Protein 1+ H (Negative) Urine Blood Large H (Negative) Urine Nitrite Positive H (Negative) Ur Leukocyte Esterase Large H (Negative) Urine RBC >182 H (0-5) /hpf Urine WBC >182 H (0-5) /hpf Urine WBC Clumps Many H (None) /hpf Urine Bacteria Occasional H (None) /hpf Urine Mucus Occasional H (None) /hpf 02/24/19 Range/Units 15:31 Lymphocytes # (1.0-4.8) k/uL D-Dimer (<0.60) mg/L FEU Glucose (74-99) mg/dL POC Glucose (mg/dL) 126 H (75-99) mg/dL Plasma Lactic Acid Judson (0.7-2.0) mmol/L Magnesium (1.6-2.3) mg/dL Urine Appearance (Clear) Urine Protein (Negative) Urine Blood (Negative) Urine Nitrite (Negative) Ur Leukocyte Esterase (Negative) Urine RBC (0-5) /hpf Urine WBC (0-5) /hpf Urine WBC Clumps (None) /hpf Urine Bacteria (None) /hpf Urine Mucus (None) /hpf Thrombosis Risk Factor Assmnt - Choose All That Apply Other Risk Factors: Yes Each Risk Factor Represents 2 Points: Age 61-74 years Thrombosis Risk Factor Assessment Total Risk Factor Score: 2 Thrombosis Risk Factor Assessment Level: Low Risk Assessment and Plan Assessment: Assessment and Plan Community-acquired pneumonia Urinary tract infection Lactic acidosis Elevated d-dimer Diabetes mellitus with hyperglycemia Diarrhea COPD Patient does not meet sepsis criteria. Right basilar consolidation confirmed on chest x-ray. Plans: Start vancomycin and cefepime. Escalate antibiotics due to profession of working in [employer]. Tylenol as needed for fever or chills. Urinalysis is positive for leukocyte esterase and nitrates. Failed Keflex. Plans: Continue above antibiotics. Follow urine culture. Lactic acid 2.4. Likely due to dehydration. Plans: Continue normal saline at 100 mL per hour. Repeat lactic acid. D-dimer 0.92. Low concerns for PE. Plans: Continue to monitor. [id number] glucose 164. Plans: Regular Accu-Cheks. Insulin sliding so. Hypoglycemic precautions. Plans: Rule out C. diff. Stable. Plans: DuoNeb as needed for shortness of breath and wheezing. Continue Symbicort. Continue DVT and GI prophylaxis. DVT prophylaxis: [Heparin] Discussed with: [Patient] Anticipated discharge: [2-3 days] Anticipated discharge place: [Home] A total of [45] minutes was spent on the care of this complex patient more than 50% of the time was spent in counseling and care coordination. Patient names her sister Blanka or son Julian decision maker indicates that she can' t make decisions for herself. Patient reiterates wanting to remain full code.
[2019-02-24] MEDS: IPRATROPIUM-ALBUTEROL 3 ML NEB INHALATION SCH ×2 (19:13→19:16)
[2019-02-24] MEDS: SYMBICORT 160-4.5 MCG INHALER INHALATION SCH (19:20)
[2019-02-24] MEDS: SODIUM CHLORIDE 0.9% 1,000 ML IV SCH (19:42)
[2019-02-24] MEDS: ZOLPIDEM 10 MG TAB PO SCH (20:19)
[2019-02-24] MEDS: METOPROLOL TARTRATE 50 MG TAB PO SCH (20:19)
[2019-02-24 20:39] LABS: Glucose,Whole Blood 165 mg/dL (75-99)
[2019-02-24] MEDS: INSULIN ASPART (NovoLOG) 100 UNIT/ML VIAL SQ SCH (20:43)
[2019-02-24] MEDS ORDERED: RX INFO: IV CONTRAST WAS GIVEN 1 EACH MISC MISCELLANE PRN (20:49)
[2019-02-24] MEDS: VANCOMYCIN 1,250 MG in SODIUM CHLORIDE 0.9% 250 ML IVPB SCH (20:54)
--- NOTE | 2019-02-24 21:59 | CT ---
EXAMINATION TYPE: CT chest angio for PE DATE OF EXAM: 02/24/2019 COMPARISON: None HISTORY: Cough. CT DLP: 406.2 mGycm Automated exposure control for dose reduction was used. CONTRAST: CT Chest for pulmonary embolism performed with with IV Contrast, patient injected with 76ml mL of Iso abdiaziz 370. FINDINGS: There are 3-D post processed images. There is diffuse pulmonary emphysema. There is some patchy airspace consolidation in the lateral aspe ct right lower lobe. There is also consolidation lateral aspect of the right upper lobe along the lat eral chest wall. I see no filling defects in the pulmonary arteries. Thoracic aorta is intact without evidence of aneurysm or dissection. There is no mediastinal adenopathy. There are bilateral bronchia l lymph nodes up to 1.5 cm. There is 15% anterior wedging of T12 vertebra that is probably old. IMPRESSION: No evidence of pulmonary embolism. Right lower lobe and to a lesser extent right upper lobe airspace consolidation consistent with pneumonia. Bronchial lymph nodes likely related to inflammatory disease . Pulmonary emphysema.
[2019-02-24] MEDS: CEFEPIME 1 GM in SODIUM CHLORIDE 0.9% 50 ML IVPB SCH (23:06)
[2019-02-25] MEDS: ACETAMINOPHEN TAB 325 MG TAB PO PRN ×2 (01:54→17:04)
[2019-02-25] MEDS: SODIUM CHLORIDE 0.9% 1,000 ML IV SCH ×2 (03:24→12:22)
[2019-02-25 05:37] LABS: Glucose,Whole Blood 140 mg/dL (75-99)
[2019-02-25] MEDS: INSULIN ASPART (NovoLOG) 100 UNIT/ML VIAL SQ SCH ×4 (05:47→19:59)
[2019-02-25 06:30] LABS: Basophils % (A) 1 %; Eosinophils # (A) 0.1 k/uL (0-0.7); Eosinophils % (A) 2 %; HCT 34.8 % (34.0-46.0); HGB 11.1 gm/dL (11.4-16.0); Lymphocytes # (A) 0.9 k/uL (1.0-4.8); Lymphocytes % (A) 17 %; MCH 30.7 pg (25.0-35.0); MCV 96.1 fL (80.0-100.0); Mean Platelet Volume 6.1; Monocytes # (A) 0.4 k/uL (0-1.0); Monocytes % (A) 8 %; Neutrophils # (A) 3.7 k/uL (1.3-7.7); Neutrophils % (A) 69 %; Platelet Count 270 k/uL (150-450); RBC 3.62 m/uL (3.80-5.40); RDW 12.3 % (11.5-15.5); WBC 5.4 k/uL (3.8-10.6)
[2019-02-25 06:55] LABS: African American GFR (CKD) >90 (>60 ml/min/1.73 sqM); Anion Gap 7 mmol/L; Blood Urea Nitrogen 7 mg/dL (7-17); Calcium 8.4 mg/dL (8.4-10.2); Carbon Dioxide 28 mmol/L (22-30); Chloride 104 mmol/L (98-107); Glucose 140 mg/dL (74-99); Magnesium 1.8 mg/dL (1.6-2.3); Potassium 3.8 mmol/L (3.5-5.1); Sodium 139 mmol/L (137-145)
[2019-02-25] MEDS: SYMBICORT 160-4.5 MCG INHALER INHALATION SCH ×2 (08:05→20:01)
[2019-02-25] MEDS: IPRATROPIUM-ALBUTEROL 3 ML NEB INHALATION SCH ×4 (08:05→20:03)
[2019-02-25] MEDS ORDERED: PANTOPRAZOLE 40 MG/10 ML VIAL IV SCH (09:00)
[2019-02-25] MEDS: CHOLECALCIFEROL 1,000 UNIT TAB PO SCH (09:13)
[2019-02-25] MEDS: METOPROLOL TARTRATE 50 MG TAB PO SCH ×2 (09:13→19:45)
[2019-02-25] MEDS: HEPARIN SODIUM,PORCINE 5,000 UNIT/ML 1 ML VIAL SQ SCH ×3 (09:14→23:28)
[2019-02-25] MEDS: VANCOMYCIN 1,250 MG in SODIUM CHLORIDE 0.9% 250 ML IVPB SCH ×2 (09:14→19:44)
[2019-02-25 11:58] LABS: Glucose,Whole Blood 120 mg/dL (75-99)
[2019-02-25] MEDS: CEFEPIME 1 GM in SODIUM CHLORIDE 0.9% 50 ML IVPB SCH ×2 (12:23→19:44)
[2019-02-25] MEDS ORDERED: guaiFENesin-Coden 100-10MG/5ML 10 ML CUP PO ONE (12:57)
--- NOTE | 2019-02-25 13:01 | P.PN ---
Subjective Progress Note Date: 02/25/19 Principal diagnosis: Pneumonia Patient was seen and examined. No acute events overnight. Patient reports coughing fits that prevent her from going to sleep, requesting medication. States that she is 60% better. Denies any chest pain or palpitations. No nausea or vomiting. No fever or chills. Objective - Vital Signs Vital signs: Vital Signs Temp 98.4 F 02/25/19 08:00 Pulse 92 02/25/19 11:42 Resp 16 02/25/19 11:32 BP 127/63 02/25/19 11:32 Pulse Ox 97 02/25/19 11:32 Intake & Output 02/24/19 02/25/19 02/25/19 18:59 06:59 18:59 Intake Total 785 480 Balance 785 480 Weight 69.853 kg 71.8 kg Intake: Intake, IV Titration 425 Amount Cefepime 2 gm In Sodium 100 Chloride 0.9% 100 ml @ 200 mls/hr IVPB ONCE [facility] Rx#:[id number] Magnesium Sulfate-D5w Pmx 200 1 gm In Dextrose/Water 1 100ml.bag @ 100 mls/hr IVPB Q1H [facility] Rx#: [id number] Vancomycin 1,250 mg In 125 Sodium Chloride 0.9% 250 ml @ 125 mls/hr IVPB Q12H [facility] Rx#:[id number] Oral 360 480 Other: Voiding Method Toilet Toilet # Voids 2 1 # Bowel Movements 1 - Exam General: [non toxic], [no distress], [appears at stated age] Derm: [warm], [dry] Head: [atraumatic], [normocephalic], [symmetric] Eyes: [EOMI], [no lid lag], [anicteric sclera] Mouth: [no lip lesion], [mucus membranes moist] Cardiovascular: [S1S2 reg], [tachycardia], [positive DP pulse bilateral], Lungs: [Coarse breath sounds bilateral right greater than left], [no rhonchi, no rales] , [no accessory muscle use] Abdominal: [soft], [ nontender to palpation], [no guarding], [no appreciable organomegaly] Ext: [no gross muscle atrophy], [no edema], [no contractures] Neuro: [no focal neuro deficits] Psych: [Alert], [oriented], [appropriate affect] - Labs CBC & Chem 7: 02/25/19 05:58 02/25/19 05:58 Labs: Abnormal Lab Results - Last 24 Hours (Table) 02/24/19 02/24/19 02/24/19 Range/Units 11:08 12:26 15:12 RBC (3.80-5.40) m/uL Hgb (11.4-16.0) gm/dL Lymphocytes # (1.0-4.8) k/uL D-Dimer 0.92 H (<0.60) mg/L FEU Glucose (74-99) mg/dL POC Glucose (mg/dL) (75-99) mg/dL Magnesium 1.3 L (1.6-2.3) mg/dL Urine Appearance Cloudy H (Clear) Urine Protein 1+ H (Negative) Urine Blood Large H (Negative) Urine Nitrite Positive H (Negative) Ur Leukocyte Esterase Large H (Negative) Urine RBC >182 H (0-5) /hpf Urine WBC >182 H (0-5) /hpf Urine WBC Clumps Many H (None) /hpf Urine Bacteria Occasional H (None) /hpf Urine Mucus Occasional H (None) /hpf 02/24/19 02/24/19 02/25/19 Range/Units 15:31 20:37 05:36 RBC (3.80-5.40) m/uL Hgb (11.4-16.0) gm/dL Lymphocytes # (1.0-4.8) k/uL D-Dimer (<0.60) mg/L FEU Glucose (74-99) mg/dL POC Glucose (mg/dL) 126 H 165 H 140 H (75-99) mg/dL Magnesium (1.6-2.3) mg/dL Urine Appearance (Clear) Urine Protein (Negative) Urine Blood (Negative) Urine Nitrite (Negative) Ur Leukocyte Esterase (Negative) Urine RBC (0-5) /hpf Urine WBC (0-5) /hpf Urine WBC Clumps (None) /hpf Urine Bacteria (None) /hpf Urine Mucus (None) /hpf 02/25/19 02/25/19 02/25/19 Range/Units 05:58 05:58 11:56 RBC 3.62 L (3.80-5.40) m/uL Hgb 11.1 L (11.4-16.0) gm/dL Lymphocytes # 0.9 L (1.0-4.8) k/uL D-Dimer (<0.60) mg/L FEU Glucose 140 H (74-99) mg/dL POC Glucose (mg/dL) 120 H (75-99) mg/dL Magnesium (1.6-2.3) mg/dL Urine Appearance (Clear) Urine Protein (Negative) Urine Blood (Negative) Urine Nitrite (Negative) Ur Leukocyte Esterase (Negative) Urine RBC (0-5) /hpf Urine WBC (0-5) /hpf Urine WBC Clumps (None) /hpf Urine Bacteria (None) /hpf Urine Mucus (None) /hpf Microbiology - Last 24 Hours (Table) 02/24/19 12:26 Urine Culture - Preliminary Urine,Clean Catch Assessment and Plan Assessment: Assessment and Plan Community-acquired pneumonia Urinary tract infection Elevated d-dimer Diabetes mellitus with hyperglycemia Diarrhea COPD Resolved: Lactic acidosis Patient does not meet sepsis criteria. Right basilar consolidation confirmed on chest x-ray. Plans: Start vancomycin and cefepime. 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 Tylenol as needed for fever or chills. Add Robitussin with codeine. Follow sputum culture. Follow blood culture. Follow pulmonology consultation. Urinalysis is positive for leukocyte esterase and nitrates. Failed Keflex. Plans: Continue above antibiotics. Follow urine culture. D-dimer 0.92. Low concerns for PE. CTA chest ruled out PE. Plans: Continue to monitor. [id number] glucose 120. Plans: Regular Accu-Cheks. Insulin sliding scale. Hypoglycemic precautions. Plans: Rule out C. diff. Stable. Plans: DuoNeb as needed for shortness of breath and wheezing. Continue Symbicort. Continue DVT and GI prophylaxis. [Patient is improving. Cultures are pending. Pulmonology is on board. Likely DC in 1-2 days.]
--- NOTE | 2019-02-25 13:38 | P.PN ---
Subjective Progress Note Date: 02/25/19 Principal diagnosis: Acute right lateral lung pneumonia, community-acquired This is 73-year-old white female patient of Dr. De León, who was sent to the office from her director of state office this morning. She was in Dr. Bai's office for follow-up after being treated for acute tracheobronchitis, and patient completed a course of azithromycin. Most recently 3 weeks ago patient sustained a fall, where she lost consciousness briefly for a few seconds, and apparently patient had stumbled and bumped her head. She injured the left side of her body and facial area. She denies any loss of bladder control, she was very short of breath after she awoke. She was seen in the emergency department, and her laceration on her forehead was sutured. Patient at that time was finishing her outpatient course of Keflex for urinary tract infection. She follows with the urologist from [place], and apparently has been having hematuria, in the past she had she's had kidney stones with lithotripsy. In the emergency department CT of the brain and cervical spine were negative, was no acute intracranial process, or acute fracture or subluxation. Patient also has underlying history of severe COPD, with FEV1 of 65% of predicted, patient is a smoker, she also has history of right to have intermittent paralysis status post diaphragmatic plication in 2013 that [facility]. She has been battling with cough, and congestion, and failed to improve despite the outpatient treatment. Chest x-ray was taken in the ED showing right basilar consolidation suspicious for unifocal pneumonia. Patient also had evidence of gross pyuria, and hematuria with positive nitrates and leukocyte esterase in the urinalysis, white blood cell count was within normal limits at 9.1, electrodes and renal profile was normal, lactic acid was elevated at 2.4. Patient was afebrile, but tachycardic with a rate of 122 to 1:30 BPM, EKG showed sinus tachycardia with incomplete right bundle branch block pattern, no acute ischemic changes. She received a dose of cefepime and vancomycin in the emergency department, she was started on breathing treatments, and were seen this patient in consultation for possibility of right lower lobe pneumonia. The patient is seen today 02/25/2019 in follow-up on the selective care unit. She is presently awake and alert in no acute distress. Resting quite comfortably in bed. She is still short of breath with exertion. Still some cough and congestion. Maintaining good O2 saturations in the 90s on room air. She's been afebrile. Hemodynamically stable. Blood culture reveals no growth to date. Urine culture pending. White count 5.4. Hemoglobin 11.1. Creatinine 0.56. She remains on DuoNeb inhalations, Symbicort, antibiotics in the form of vancomycin and cefepime. CT angiogram ruled out pulmonary embolism. There is a right lower lobe and to a lesser right upper lobe airspace consolidation consistent with pneumonia. Objective - Vital Signs Vital signs: Vital Signs Temp 98.4 F 02/25/19 08:00 Pulse 92 02/25/19 11:42 Resp 16 02/25/19 11:32 BP 127/63 02/25/19 11:32 Pulse Ox 97 02/25/19 11:32 Intake & Output 02/24/19 02/25/19 02/25/19 18:59 06:59 18:59 Intake Total 785 480 Balance 785 480 Weight 69.853 kg 71.8 kg Intake: Intake, IV Titration 425 Amount Cefepime 2 gm In Sodium 100 Chloride 0.9% 100 ml @ 200 mls/hr IVPB ONCE [facility] Rx#:[id number] Magnesium Sulfate-D5w Pmx 200 1 gm In Dextrose/Water 1 100ml.bag @ 100 mls/hr IVPB Q1H [facility] Rx#: [id number] Vancomycin 1,250 mg In 125 Sodium Chloride 0.9% 250 ml @ 125 mls/hr IVPB Q12H [facility] Rx#:[id number] Oral 360 480 Other: Voiding Method Toilet Toilet # Voids 2 1 # Bowel Movements 1 - Exam GENERAL EXAM: Alert, pleasant, 73-year-old female patient, comfortable in no apparent distress. On room air. HEAD: Normocephalic/atraumatic. There is a healed laceration on her forehead, and fading bruising in the left periorbital area NOSE: Clear with pink turbinates. THROAT: No erythema or exudates. NECK: No masses, no JVD, no thyroid enlargement, no adenopathy. CHEST: No chest wall deformity. Symmetrical expansion. LUNGS: Equal air entry with diminished breath sounds with diminished breath sounds over right lower lobe CVS: Regular rate and rhythm, normal S1 and S2, no gallops, no murmurs, no rubs ABDOMEN: Soft, nontender. No hepatosplenomegaly, normal bowel sounds, no guarding or rigidity. EXTREMITIES: No clubbing, no edema, no cyanosis, 2+ pulses and upper and lower extremities. MUSCULOSKELETAL: Muscle strength and tone normal. SPINE: No scoliosis or deformity SKIN: No rashes CENTRAL NERVOUS SYSTEM: No focal deficits, tone is normal in all 4 extremities. PSYCHIATRIC: Alert and oriented -3. Appropriate affect. Intact judgment and insight. - Labs CBC & Chem 7: 02/25/19 05:58 02/25/19 05:58 Labs: Abnormal Lab Results - Last 24 Hours (Table) 02/24/19 02/24/19 02/24/19 Range/Units 11:08 15:12 15:31 RBC (3.80-5.40) m/uL Hgb (11.4-16.0) gm/dL Lymphocytes # (1.0-4.8) k/uL D-Dimer 0.92 H (<0.60) mg/L FEU Glucose (74-99) mg/dL POC Glucose (mg/dL) 126 H (75-99) mg/dL Magnesium 1.3 L (1.6-2.3) mg/dL 02/24/19 02/25/19 02/25/19 Range/Units 20:37 05:36 05:58 RBC 3.62 L (3.80-5.40) m/uL Hgb 11.1 L (11.4-16.0) gm/dL Lymphocytes # 0.9 L (1.0-4.8) k/uL D-Dimer (<0.60) mg/L FEU Glucose (74-99) mg/dL POC Glucose (mg/dL) 165 H 140 H (75-99) mg/dL Magnesium (1.6-2.3) mg/dL 02/25/19 02/25/19 Range/Units 05:58 11:56 RBC (3.80-5.40) m/uL Hgb (11.4-16.0) gm/dL Lymphocytes # (1.0-4.8) k/uL D-Dimer (<0.60) mg/L FEU Glucose 140 H (74-99) mg/dL POC Glucose (mg/dL) 120 H (75-99) mg/dL Magnesium (1.6-2.3) mg/dL Microbiology - Last 24 Hours (Table) 02/24/19 12:26 Urine Culture - Preliminary Urine,Clean Catch Assessment and Plan Assessment: Assessment: #1. Acute right lateral lung pneumonia, possibly community-acquired #2. Acute urinary tract infection, with failure of outpatient treatment, hematuria #3. Lactic acidosis, mild, improved with hydration #4. History of kidney stones, status post lithotripsy #5. Recent fall with loss of consciousness, with CT had and neck showing no acute process. Patient sustained laceration to her forehead, and bruising around her left eye #6. Diabetes mellitus type II #7. 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 Anxiety #10. Former smoker, quit smoking in June 2018 #11. Hypertension #12. Chronic pain syndrome Plan: The patient was seen and evaluated by Dr. Colunga. CAT scan of labs reviewed. No evidence of pulmonary embolism. Right lung pneumonia. We'll continue with vancomycin and cefepime. Continue bronchodilators and Symbicort. Increase her activity as tolerated. We'll continue to follow and make further recommendations based on her clinical status. I, the cosigning physician, performed a history & physical examination of the patient. Lungs sounds with scattered rhonchi more so on the right lung Maintaining good O2 saturations in the 90s on room air. I discussed the assessment and plan of care with my nurse practitioner, Caroline Medeiros. I attest to the above note as dictated by her.
[2019-02-25 17:00] LABS: Glucose,Whole Blood 240 mg/dL (75-99)
[2019-02-25] MEDS: ZOLPIDEM 10 MG TAB PO SCH (19:45)
[2019-02-25] MEDS: guaiFENesin-Coden 100-10MG/5ML 10 ML CUP PO PRN (19:54)
[2019-02-25 20:09] LABS: Glucose,Whole Blood 170 mg/dL (75-99)
[2019-02-26] MEDS: SODIUM CHLORIDE 0.9% 1,000 ML IV SCH ×3 (00:32→20:27)
[2019-02-26] MEDS: guaiFENesin-Coden 100-10MG/5ML 10 ML CUP PO PRN ×3 (00:50→18:14)
[2019-02-26] MEDS: INSULIN ASPART (NovoLOG) 100 UNIT/ML VIAL SQ SCH ×4 (05:54→20:27)
[2019-02-26 05:57] LABS: Glucose,Whole Blood 130 mg/dL (75-99)
[2019-02-26] MEDS: PANTOPRAZOLE 40 MG TABLET PO SCH (06:12)
[2019-02-26 06:31] LABS: African American GFR (CKD) >90 (>60 ml/min/1.73 sqM)
[2019-02-26] MEDS ORDERED: VANCOMYCIN TROUGH DUE 1 EACH MISC MISCELLANE ONE (07:00)
[2019-02-26] MEDS: HEPARIN SODIUM,PORCINE 5,000 UNIT/ML 1 ML VIAL SQ SCH ×2 (08:18→17:01)
[2019-02-26] MEDS: CEFEPIME 1 GM in SODIUM CHLORIDE 0.9% 50 ML IVPB SCH ×2 (08:18→20:27)
[2019-02-26] MEDS: ACETAMINOPHEN TAB 325 MG TAB PO PRN ×3 (08:19→21:37)
[2019-02-26] MEDS: CHOLECALCIFEROL 1,000 UNIT TAB PO SCH (08:19)
[2019-02-26] MEDS: METOPROLOL TARTRATE 50 MG TAB PO SCH ×2 (08:19→20:26)
[2019-02-26] MEDS: VANCOMYCIN 1,250 MG in SODIUM CHLORIDE 0.9% 250 ML IVPB SCH ×2 (08:30→16:48)
[2019-02-26] MEDS: IPRATROPIUM-ALBUTEROL 3 ML NEB INHALATION SCH ×4 (09:13→19:46)
[2019-02-26] MEDS: SYMBICORT 160-4.5 MCG INHALER INHALATION SCH ×2 (09:13→19:46)
[2019-02-26 11:47] LABS: Glucose,Whole Blood 128 mg/dL (75-99)
--- NOTE | 2019-02-26 12:11 | P.PN ---
Subjective Progress Note Date: 02/26/19 Principal diagnosis: Pneumonia Patient was seen and examined. No acute events overnight. Patient states that her coughing fits have significantly improved since starting Robitussin with codeine. Denies any chest pain or palpitations. No nausea or vomiting. No fever or chills. Continues to complain of urinary frequency. Objective - Vital Signs Vital signs: Vital Signs Temp 98.5 F 02/26/19 09:11 Pulse 90 02/26/19 09:28 Resp 18 02/26/19 09:11 BP 154/67 02/26/19 09:11 Pulse Ox 91 L 02/26/19 09:11 Intake & Output 02/25/19 02/26/19 02/26/19 18:59 06:59 18:59 Intake Total 1680 450 Balance 1680 450 Intake: Intake, IV Titration 1200 450 Amount Cefepime 1 gm In Sodium 50 Chloride 0.9% 50 ml @ 100 mls/hr IVPB Q12HR [facility] Rx #:[id number] Sodium Chloride 0.9% 1, 900 200 000 ml @ 100 mls/hr IV . Q10H [facility] Rx#:[id number] Vancomycin 1,250 mg In 250 250 Sodium Chloride 0.9% 250 ml @ 125 mls/hr IVPB Q12H [facility] Rx#:[id number] Oral 480 Other: Voiding Method Toilet Toilet # Voids 2 1 # Bowel Movements 1 1 - Exam General: [non toxic], [no distress], [appears at stated age] Derm: [warm], [dry] Head: [atraumatic], [normocephalic], [symmetric] Eyes: [EOMI], [no lid lag], [anicteric sclera] Mouth: [no lip lesion], [mucus membranes moist] Cardiovascular: [S1S2 reg], [no murmur], [positive DP pulse bilateral], Lungs: [Coarse breath sounds bilateral right greater than left], [no rhonchi, no rales] , [no accessory muscle use] Abdominal: [soft], [ nontender to palpation], [no guarding], [no appreciable organomegaly] Ext: [no gross muscle atrophy], [no edema], [no contractures] Neuro: [no focal neuro deficits] Psych: [Alert], [oriented], [appropriate affect] - Labs CBC & Chem 7: 02/25/19 05:58 02/26/19 05:52 Labs: Abnormal Lab Results - Last 24 Hours (Table) 02/25/19 02/25/19 02/26/19 Range/Units 16:58 19:58 05:53 POC Glucose (mg/dL) 240 H 170 H 130 H (75-99) mg/dL 02/26/19 Range/Units 11:46 POC Glucose (mg/dL) 128 H (75-99) mg/dL Microbiology - Last 24 Hours (Table) 02/24/19 12:26 Urine Culture - Preliminary Urine,Clean Catch Group D Enterococcus 02/24/19 11:08 Blood Culture - Preliminary Blood No Growth after 24 hours Assessment and Plan Assessment: Assessment and Plan Community-acquired pneumonia Urinary tract infection Elevated d-dimer Diabetes mellitus with hyperglycemia Diarrhea COPD Resolved: Lactic acidosis Patient does not meet sepsis criteria. Right basilar consolidation confirmed on chest x-ray. Blood culture negative at 24 hours. Plans: Continue vancomycin and cefepime. Escalate antibiotics due to profession of working in [employer]. Tylenol as needed for fever or chills. Add Robitussin with codeine. Follow sputum culture. Follow blood culture. Follow pulmonology consultation. Urinalysis is positive for leukocyte esterase and nitrates. Failed Keflex. Urine culture growing enterococcus. Plans: Continue above antibiotics. Follow urine culture. D-dimer 0.92. Low concerns for PE. CTA chest ruled out PE. Plans: Continue to monitor. [id number] glucose 128. Plans: Regular Accu-Cheks. Insulin sliding scale. Hypoglycemic precautions. Plans: Rule out C. diff. Stable. Plans: DuoNeb as needed for shortness of breath and wheezing. Continue Symbicort. Continue DVT and GI prophylaxis. [Patient is improving. Cultures are pending. Pulmonology is on board. Likely DC tomorrow.]
--- NOTE | 2019-02-26 14:14 | P.PN ---
Subjective Progress Note Date: 02/26/19 Principal diagnosis: Acute right lower lobe pneumonia This is 73-year-old white female patient of Dr. De León, who was sent to the office from her [facility] office this morning. She was in Dr. Bai's office for follow-up after being treated for acute tracheobronchitis, and patient completed a course of azithromycin. Most recently 3 weeks ago patient sustained a fall, where she lost consciousness briefly for a few seconds, and apparently patient had stumbled and bumped her head. She injured the left side of her body and facial area. She denies any loss of bladder control, she was very short of breath after she awoke. She was seen in the emergency department, and her laceration on her forehead was sutured. Patient at that time was finishing her outpatient course of Keflex for urinary tract infection. She follows with the urologist from [place], and apparently has been having hematuria, in the past she had she's had kidney stones with lithotripsy. In the emergency department CT of the brain and cervical spine were negative, was no acute intracranial process, or acute fracture or subluxation. Patient also has underlying history of severe COPD, with FEV1 of 65% of predicted, patient is a smoker, she also has history of right to have intermittent paralysis status post diaphragmatic plication in 2013 that [facility]. She has been battling with cough, and congestion, and failed to improve despite the outpatient treatment. Chest x-ray was taken in the ED showing right basilar consolidation suspicious for unifocal pneumonia. Patient also had evidence of gross pyuria, and hematuria with positive nitrates and leukocyte esterase in the urinalysis, white blood cell count was within normal limits at 9.1, electrodes and renal profile was normal, lactic acid was elevated at 2.4. Patient was afebrile, but tachycardic with a rate of 122 to 1:30 BPM, EKG showed sinus tachycardia with incomplete right bundle branch block pattern, no acute ischemic changes. She received a dose of cefepime and vancomycin in the emergency department, she was started on breathing treatments, and were seen this patient in consultation for possibility of right lower lobe pneumonia. The patient is seen today 02/25/2019 in follow-up on the selective care unit. She is presently awake and alert in no acute distress. Resting quite comfortably in bed. She is still short of breath with exertion. Still some cough and congestion. Maintaining good O2 saturations in the 90s on room air. She's been afebrile. Hemodynamically stable. Blood culture reveals no growth to date. Urine culture pending. White count 5.4. Hemoglobin 11.1. Creatinine 0.56. She remains on DuoNeb inhalations, Symbicort, antibiotics in the form of vancomycin and cefepime. CT angiogram ruled out pulmonary embolism. There is a right lower lobe and to a lesser right upper lobe airspace consolidation consistent with pneumonia. Reevaluated today on 02/26/2019, patient is feeling a bit better however she continues to have intermittent episodes of cough, no wheezing, no fever, no chills, no hemoptysis, and no chest pain. No labs done today, except for her sugar being 128. Her urine culture and seems to be positive for group D enterococcus hence I will recommend Unasyn. May consider stopping vancomycin. Blood cultures remain negative. Patient is now on cefepime and vancomycin, I think both could be switched to Unasyn for her group D enterococcus urinary tract infection Objective - Vital Signs Vital signs: Vital Signs Temp 98.5 F 02/26/19 09:11 Pulse 90 02/26/19 09:28 Resp 18 02/26/19 09:11 BP 154/67 02/26/19 09:11 Pulse Ox 91 L 02/26/19 09:11 Intake & Output 02/25/19 02/26/19 02/26/19 18:59 06:59 18:59 Intake Total 8605 079 5657 Balance 4591 046 5747 Intake: IV 1100 Cefepime 1 gm In Sodium 50 Chloride 0.9% 50 ml @ 100 mls/hr IVPB Q12HR [facility] Rx #:[id number] Sodium Chloride 0.9% 1, 800 000 ml @ 100 mls/hr IV . Q10H [facility] Rx#:[id number] Vancomycin 1,250 mg In 250 Sodium Chloride 0.9% 250 ml @ 125 mls/hr IVPB Q12H [facility] Rx#:[id number] Intake, IV Titration 1200 450 Amount Cefepime 1 gm In Sodium 50 Chloride 0.9% 50 ml @ 100 mls/hr IVPB Q12HR [facility] Rx #:[id number] Sodium Chloride 0.9% 1, 900 200 000 ml @ 100 mls/hr IV . Q10H [facility] Rx#:[id number] Vancomycin 1,250 mg In 250 250 Sodium Chloride 0.9% 250 ml @ 125 mls/hr IVPB Q12H [facility] Rx#:[id number] Oral 480 Other: Voiding Method Toilet Toilet # Voids 2 1 # Bowel Movements 1 1 - Exam Physical Exam: Revealed 73-year-old female in no distress. Head: Atraumatic, normocephalic, there seems to be evidence of a healed laceration on the forehead, and minimal bruising in the left periorbital area. HEENT:[Neck is supple.] [No neck masses.] [No thyromegaly.] [No JVD.] PERRLA, EOMI, no icterus. Chest: [Minimal fine crackles at the right base, no rhonchi and no wheezes.] Cardiac Exam: [Normal S1 and S2, no S3 gallop, no murmur.] Abdomen: [Soft, nontender, no megaly, no rebound, no guarding, normal bowel sounds.] Extremities: [No clubbing, no edema, no cyanosis.] Neurological Exam: [No focal neurologic deficit.] Alert and oriented 3. Psychiatric: Normal mood affect and normal mental status examination. Skin: No rashes. Musculoskeletal: Tone and muscle strength are normal. - Labs CBC & Chem 7: 02/25/19 05:58 02/26/19 05:52 Labs: Abnormal Lab Results - Last 24 Hours (Table) 02/25/19 02/25/19 02/26/19 Range/Units 16:58 19:58 05:53 POC Glucose (mg/dL) 240 H 170 H 130 H (75-99) mg/dL 02/26/19 Range/Units 11:46 POC Glucose (mg/dL) 128 H (75-99) mg/dL Microbiology - Last 24 Hours (Table) 02/24/19 11:08 Blood Culture - Preliminary Blood No Growth after 48 hours 02/24/19 12:26 Urine Culture - Preliminary Urine,Clean Catch Group D Enterococcus Assessment and Plan Assessment: #1. Acute right lateral lung pneumonia, possibly community-acquired #2. Acute urinary tract infection, with failure of outpatient treatment, hematuria #3. Lactic acidosis, mild, improved with hydration #4. History of kidney stones, status post lithotripsy #5. Recent fall with loss of consciousness, with CT had and neck showing no acute process. Patient sustained laceration to her forehead, and bruising around her left eye #6. Diabetes mellitus type II #7. 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 Anxiety #10. Former smoker, quit smoking in June 2018 #11. Hypertension #12. Chronic pain syndrome Recommendation: Continue present treatment plan, however considering her group D enterococcus initial report on the urine culture, may consider switching vancomycin and Rocephin to Unasyn, sensitivity on the final urine culture is pending. We'll continue to follow. Patient will be seen by Dr. Bai on follow-up in a.m. Time with Patient: Less than 30
[2019-02-26 16:43] LABS: Glucose,Whole Blood 126 mg/dL (75-99)
[2019-02-26 20:16] LABS: Glucose,Whole Blood 153 mg/dL (75-99)
[2019-02-26] MEDS: ZOLPIDEM 10 MG TAB PO SCH (21:37)
[2019-02-27] MEDS: HEPARIN SODIUM,PORCINE 5,000 UNIT/ML 1 ML VIAL SQ SCH ×3 (00:06→16:59)
[2019-02-27] MEDS: VANCOMYCIN 1,250 MG in SODIUM CHLORIDE 0.9% 250 ML IVPB SCH ×4 (01:17→23:51)
[2019-02-27 06:30] LABS: Glucose,Whole Blood 132 mg/dL (75-99)
[2019-02-27] MEDS: guaiFENesin-Coden 100-10MG/5ML 10 ML CUP PO PRN ×3 (06:32→20:48)
[2019-02-27] MEDS: SODIUM CHLORIDE 0.9% 1,000 ML IV SCH ×2 (06:32→08:49)
[2019-02-27] MEDS: INSULIN ASPART (NovoLOG) 100 UNIT/ML VIAL SQ SCH ×4 (06:32→20:53)
[2019-02-27] MEDS: PANTOPRAZOLE 40 MG TABLET PO SCH (06:32)
[2019-02-27] MEDS: CHOLECALCIFEROL 1,000 UNIT TAB PO SCH (08:45)
[2019-02-27] MEDS: METOPROLOL TARTRATE 50 MG TAB PO SCH ×2 (08:45→20:48)
--- NOTE | 2019-02-27 08:45 | XR ---
EXAMINATION TYPE: XR chest 2V DATE OF EXAM: 02/27/2019 COMPARISON: Prior chest x-ray and CT 02/24/2019 HISTORY: Pneumonia TECHNIQUE: Frontal and lateral views of the chest are obtained. FINDINGS: Findings are similar to prior exam. There is elevated right hemidiaphragm. Heart size is s table. No evident pneumothorax. There is blunting of the right costophrenic angle, abnormal density p resent at the right lung base, midlung laterally. There is likely spinal curvature. Underlying degene rative disc changes, postop change noted to the right shoulder. Prominent lung volumes compatible wit h underlying COPD, emphysema. IMPRESSION: Probable right lower lobe pneumonia and associated effusion versus atelectasis. Elevated right hemidiaphragm. Recommend follow-up to resolution.
[2019-02-27] MEDS: SYMBICORT 160-4.5 MCG INHALER INHALATION SCH ×2 (08:56→20:01)
[2019-02-27] MEDS: IPRATROPIUM-ALBUTEROL 3 ML NEB INHALATION SCH ×4 (08:56→20:01)
[2019-02-27] MEDS: ACETAMINOPHEN TAB 325 MG TAB PO PRN ×2 (08:58→20:48)
[2019-02-27] MEDS: CEFEPIME 1 GM in SODIUM CHLORIDE 0.9% 50 ML IVPB SCH ×2 (11:47→20:53)
[2019-02-27 11:56] LABS: Glucose,Whole Blood 123 mg/dL (75-99)
--- NOTE | 2019-02-27 12:43 | PN ---
PROGRESS NOTE DATE OF SERVICE: February 27, 2019 This is a 73-year-old female who was admitted from the office on February 24. She came in with the right-sided pneumonia. She also was having a urinary tract infection. Anyway, the patient is doing only a bit better. She is still quite congested and wheezy. She is having hard time coughing up phlegm. Dr. Colunga did discuss the possibility of bronchoscopy with her. I think it is about time that we do it. The patient is complaining of shortness of breath, cough, chest tightness, wheezing and phlegm production. Again, she is having a hard time coughing up her secretions. She has a previous history of right diaphragm paralysis, status post plication by Dr. Rosendo Doherty at [facility]. This was done in 2012. In addition, she has a history of chronic pain syndrome, hypertension, anxiety, COPD, diabetes, and recent fall with loss of consciousness. PHYSICAL EXAMINATION: VITAL SIGNS: Current vital signs are reviewed. Temperature is 98.8, heart rate 88, respiratory rate 20, blood pressure 149/77, mean 101, room air saturation between 91% and 92%. GENERAL: Appears no acute distress. No audible wheezing. Her cough is congested. No conversational dyspnea. HEENT: Examination is grossly unremarkable. Some periorbital ecchymosis noted around the left eye. NECK: Supple. Full range of motion. No adenopathy or thyromegaly. Neck veins are flat. CARDIOVASCULAR: Examination reveals regular rhythm and rate. S1, S2 normal. No S3, S4, or murmur. LUNGS: Reveal coarse inspiratory and expiratory rhonchi and wheezes. Breath sounds are diminished throughout, particularly on the right side. There is prolongation on forced maneuver. Adventitious lung sounds are more prominent on forced maneuver. ABDOMEN: Soft. Bowel sounds are heard. EXTREMITIES: Are intact. There is no cyanosis, clubbing, or edema. SKIN: Without rash. NEUROLOGIC: Examination is brief but nonfocal. LAB DATA: Lab data is reviewed. Nothing to report. Microbiologic data shows Enterococcus faecium in the urine from February 24. Her chest x-ray from today continues to show an elevated right diaphragm. There is probable right lower lobe pneumonia and effusion. There also may be some infiltrate in the right upper lobe. MEDICATIONS: Medications are reviewed. ASSESSMENT: 1. Acute right lower lobe pneumonia, community acquired. 2. Acute urinary tract infection secondary to Enterococcus faecium. 3. Lactic acidosis, improved. 4. History of kidney stones, status post lithotripsy. 5. Recent fall with loss of consciousness, and negative scans. 6. Diabetes mellitus, type 2. 7. Moderately severe chronic obstructive pulmonary disease with an FEV1 that is 65% of predicted. 8. Right diaphragm paralysis, status post plication 2012. 9. Anxiety. 10.Prior history of tobacco use. 11.Hypertension. 12.Chronic pain syndrome. PLAN: Because the patient really is not showing a dramatic improvement, she will be scheduled for bronchoscopy and BAL and airway examination in the morning. Nothing to eat or drink after midnight. Consent on chart. Medications are reviewed. Additional recommendations and suggestions are forthcoming. MMODL / IJN: [id number] /
--- NOTE | 2019-02-27 13:12 | P.PN ---
Subjective Progress Note Date: 02/27/19 The patient is a 73 yo F with a PMH of COPD, right diaphragmatic paralysis status post diaphragmatic plication (2012), tobacco abuse, diabetes mellitus, and hypertension presented to the ED due to persistent cough productive of brown phlegm along with dysuria with hematuria. The patient has been following with Dr. Bai as an outpatient for persistent cough and had been taking a course of azithromycin. The patient had also suffered a fall roughly 3 weeks ago with which she suffered laceration of the face which was sutured in the emergency room and the patient was discharged to home. The patient reports urinary complaints ongoing for the past 3-4 weeks, for which she was taking Keflex as an outpatient. The patient had subsequently developed diarrhea and feeling ill, for which she came to the ED. 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 Pulmonary medicine was consulted and recommendations were appreciated. The patient was scheduled for bronchoscopy for 02/28. She was seen and examined at the bedside on 02/27. She notes continued cough, minimally improved since yesterday. She notes that her hematuria has resolved and her dysuria is minimal now. She denied any additional complaints including chest pain, fever, chills, nausea, or vomiting. Objective - Vital Signs Vital signs: Vital Signs Temp 98.5 F 02/27/19 12:00 Pulse 84 02/27/19 12:14 Resp 20 02/27/19 12:00 BP 174/75 02/27/19 12:00 Pulse Ox 95 02/27/19 12:00 Intake & Output 02/26/19 02/27/19 02/27/19 18:59 06:59 18:59 Intake Total 1322 590 Balance 1322 590 Intake: IV 1100 300 Cefepime 1 gm In Sodium 50 Chloride 0.9% 50 ml @ 100 mls/hr IVPB Q12HR [facility] Rx #:[id number] Sodium Chloride 0.9% 1, 800 300 000 ml @ 100 mls/hr IV . Q10H [facility] Rx#:[id number] Vancomycin 1,250 mg In 250 Sodium Chloride 0.9% 250 ml @ 125 mls/hr IVPB Q12H [facility] Rx#:[id number] Oral 222 240 Lipid 50 Cefepime 1 gm In Sodium 50 Chloride 0.9% 50 ml @ 100 mls/hr IVPB Q12HR [facility] Rx #:[id number] Other: Voiding Method Toilet Toilet Toilet # Voids 2 - Exam General: Non-toxic, in no acute distress, appears stated age, normal weight HEENT: NC/AT, anicteric sclerae, moist conjunctiva, no lid-lag, PERRLA Cardiovascular: S1/S2 wnl, no murmurs, rubs, or gallops Lungs: Scattered rhonchi with right base crackles, normal respiratory effort, no accessory muscle use Abdominal: Soft, non-tender, non-distended, no guarding, rebound, or rigidity Skin: Warm, dry Extremities: No edema or contractures Psychiatric: Alert and oriented to person, place and time, appropriate affect Neuro: CN II-XII grossly intact, Strength 5/5 in all 4 extremities, Speech intact, Sensation to light touch grossly intact throughout - Labs CBC & Chem 7: 02/25/19 05:58 02/26/19 05:52 Labs: Abnormal Lab Results - Last 24 Hours (Table) 02/26/19 02/26/19 02/27/19 Range/Units 16:41 20:14 06:27 POC Glucose (mg/dL) 126 H 153 H 132 H (75-99) mg/dL 02/27/19 Range/Units 11:54 POC Glucose (mg/dL) 123 H (75-99) mg/dL Microbiology - Last 24 Hours (Table) 02/26/19 10:08 Gram Stain - Preliminary Sputum Sputum Culture - Preliminary 02/24/19 12:26 Urine Culture - Final Urine,Clean Catch Enterococcus faecium 02/24/19 11:08 Blood Culture - Preliminary Blood No Growth after 48 hours Assessment and Plan Plan: Pneumonia, community-acquired versus healthcare associated -Pulmonary medicine following -Continue with vancomycin and cefepime for now -Scheduled for bronchoscopy in the a.m. -Antitussives COPD, not in acute exacerbation -Continue with Symbicort -Continue with DuoNeb's Acute urinary tract infection with enterococcus -Continue with vancomycin -Failed Keflex as an outpatient Type 2 diabetes mellitus -Insulin sliding scale and blood glucose monitoring Hypertension -Continue with home med: Lopressor DVT prophylaxis -Heparin Discussed with: Patient Anticipated discharge date: 03/[address]: Home A total of 35 minutes was spent on the care of this complex patient more than 50% of the time was spent in counseling and care coordination.
[2019-02-27 17:11] LABS: Glucose,Whole Blood 115 mg/dL (75-99)
[2019-02-27] MEDS ORDERED: VANCOMYCIN IV PER PHARMACY 1 EACH MISC MISCELLANE PRN (17:36)
[2019-02-27 20:29] LABS: Glucose,Whole Blood 198 mg/dL (75-99)
[2019-02-27] MEDS: ZOLPIDEM 10 MG TAB PO SCH (20:53)
[2019-02-27] MEDS ORDERED: VANCOMYCIN TROUGH DUE 1 EACH MISC MISCELLANE ONE (23:00)
[2019-02-28] MEDS: HEPARIN SODIUM,PORCINE 5,000 UNIT/ML 1 ML VIAL SQ SCH ×4 (00:25→21:57)
[2019-02-28] MEDS: guaiFENesin-Coden 100-10MG/5ML 10 ML CUP PO PRN ×3 (03:35→20:17)
[2019-02-28] MEDS: ACETAMINOPHEN TAB 325 MG TAB PO PRN ×4 (03:35→20:16)
[2019-02-28 06:12] LABS: Glucose,Whole Blood 129 mg/dL (75-99)
[2019-02-28] MEDS: SODIUM CHLORIDE 0.9% 1,000 ML IV SCH ×2 (06:31→09:19)
[2019-02-28] MEDS: INSULIN ASPART (NovoLOG) 100 UNIT/ML VIAL SQ SCH ×4 (06:43→20:27)
[2019-02-28 07:11] LABS: African American GFR (CKD) >90 (>60 ml/min/1.73 sqM)
[2019-02-28] MEDS: PANTOPRAZOLE 40 MG TABLET PO SCH (07:35)
[2019-02-28] MEDS: SYMBICORT 160-4.5 MCG INHALER INHALATION SCH ×2 (07:40→19:45)
[2019-02-28] MEDS: IPRATROPIUM-ALBUTEROL 3 ML NEB INHALATION SCH ×4 (07:40→19:46)
[2019-02-28] MEDS: VANCOMYCIN 1,000 MG in SODIUM CHLORIDE 0.9% 250 ML IVPB SCH ×3 (09:19→23:06)
[2019-02-28] MEDS: METOPROLOL TARTRATE 50 MG TAB PO SCH ×2 (09:33→20:16)
[2019-02-28] MEDS: CHOLECALCIFEROL 1,000 UNIT TAB PO SCH (09:33)
--- NOTE | 2019-02-28 10:33 | P.PN ---
Subjective Progress Note Date: 02/28/19 Principal diagnosis: Acute right lateral lung pneumonia, community-acquired This is 73-year-old white female patient of Dr. 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 She was in Dr. Bai's office for follow-up after being treated for acute tracheobronchitis, and patient completed a course of azithromycin. Most recently 3 weeks ago patient sustained a fall, where she lost consciousness briefly for a few seconds, and apparently patient had stumbled and bumped her head. She injured the left side of her body and facial area. She denies any loss of bladder control, she was very short of breath after she awoke. She was seen in the emergency department, and her laceration on her forehead was sutured. Patient at that time was finishing her outpatient course of Keflex for urinary tract infection. She follows with the urologist from [place], and apparently has been having hematuria, in the past she had she's had kidney stones with lithotripsy. In the emergency department CT of the brain and cervical spine were negative, was no acute intracranial process, or acute fracture or subluxation. Patient also has underlying history of severe COPD, with FEV1 of 65% of predicted, patient is a smoker, she also has history of right to have intermittent paralysis status post diaphragmatic plication in 2013 that [facility]. She has been battling with cough, and congestion, and failed to improve despite the outpatient treatment. Chest x-ray was taken in the ED showing right basilar consolidation suspicious for unifocal pneumonia. Patient also had evidence of gross pyuria, and hematuria with positive nitrates and leukocyte esterase in the urinalysis, white blood cell count was within normal limits at 9.1, electrodes and renal profile was normal, lactic acid was elevated at 2.4. Patient was afebrile, but tachycardic with a rate of 122 to 1:30 BPM, EKG showed sinus tachycardia with incomplete right bundle branch block pattern, no acute ischemic changes. She received a dose of cefepime and vancomycin in the emergency department, she was started on breathing treatments, and were seen this patient in consultation for possibility of right lower lobe pneumonia. The patient is seen today 02/25/2019 in follow-up on the selective care unit. She is presently awake and alert in no acute distress. Resting quite comfortably in bed. She is still short of breath with exertion. Still some cough and congestion. Maintaining good O2 saturations in the 90s on room air. She's been afebrile. Hemodynamically stable. Blood culture reveals no growth to date. Urine culture pending. White count 5.4. Hemoglobin 11.1. Creatinine 0.56. She remains on DuoNeb inhalations, Symbicort, antibiotics in the form of vancomycin and cefepime. CT angiogram ruled out pulmonary embolism. There is a right lower lobe and to a lesser right upper lobe airspace consolidation consistent with pneumonia. Reevaluated today on 02/26/2019, patient is feeling a bit better however she continues to have intermittent episodes of cough, no wheezing, no fever, no chills, no hemoptysis, and no chest pain. No labs done today, except for her sugar being 128. Her urine culture and seems to be positive for group D enterococcus hence I will recommend Unasyn. May consider stopping vancomycin. Blood cultures remain negative. Patient is now on cefepime and vancomycin, I think both could be switched to Unasyn for her group D enterococcus urinary tract infection. The patient is seen today 02/28/2019 in follow-up. She is currently sitting up in a chair at the bedside. Awake and alert in no acute distress. She is maintaining O2 saturations in the low 90s on room air. She continues with a loose nonproductive cough. Still dyspneic on exertion. The plan is for bronchoscopy with BAL today. Blood culture reveals no growth. Urine was positive for enterococcus faecium. Sputum cultures pending. She remains on DuoNeb inhalations, Symbicort. Antibiotics in the form of vancomycin and cefepime. Objective - Vital Signs Vital signs: Vital Signs Temp 98.3 F 02/28/19 09:37 Pulse 82 02/28/19 09:37 Resp 16 02/28/19 09:37 BP 148/72 02/28/19 09:37 Pulse Ox 92 L 02/28/19 09:37 Intake & Output 02/27/19 02/28/19 02/28/19 18:59 06:59 18:59 Intake Total 1340 620 20 Balance 1340 620 20 Intake: IV 620 140 20 Cefepime 1 gm In Sodium 50 50 Chloride 0.9% 50 ml @ 100 mls/hr IVPB Q12HR ERMIAS Rx #:[id number] Invasive Line 4 20 Sodium Chloride 0.9% 1, 320 90 000 ml @ 30 mls/hr IV . Q24H ERMIAS Rx#:[id number] Vancomycin 1,250 mg In 250 Sodium Chloride 0.9% 250 ml @ 125 mls/hr IVPB Q8H ERMIAS Rx#:[id number] Oral 720 480 Other: Voiding Method Toilet Toilet Toilet # Voids 4 1 - Exam GENERAL EXAM: Alert, pleasant, 73-year-old female patient, comfortable in no apparent distress. On room air. HEAD: Normocephalic/atraumatic. There is a healed laceration on her forehead, and fading bruising in the left periorbital area NOSE: Clear with pink turbinates. THROAT: No erythema or exudates. NECK: No masses, no JVD, no thyroid enlargement, no adenopathy. CHEST: No chest wall deformity. Symmetrical expansion. LUNGS: Equal air entry with diminished breath sounds with diminished breath sounds over right lower lobe CVS: Regular rate and rhythm, normal S1 and S2, no gallops, no murmurs, no rubs ABDOMEN: Soft, nontender. No hepatosplenomegaly, normal bowel sounds, no guarding or rigidity. EXTREMITIES: No clubbing, no edema, no cyanosis, 2+ pulses and upper and lower extremities. MUSCULOSKELETAL: Muscle strength and tone normal. SPINE: No scoliosis or deformity SKIN: No rashes CENTRAL NERVOUS SYSTEM: No focal deficits, tone is normal in all 4 extremities. PSYCHIATRIC: Alert and oriented -3. Appropriate affect. Intact judgment and insight. - Labs CBC & Chem 7: 02/25/19 05:58 02/28/19 06:28 Labs: Abnormal Lab Results - Last 24 Hours (Table) 02/27/19 02/27/19 02/27/19 Range/Units 11:54 17:04 20:28 POC Glucose (mg/dL) 123 H 115 H 198 H (75-99) mg/dL 02/28/19 Range/Units 06:10 POC Glucose (mg/dL) 129 H (75-99) mg/dL Microbiology - Last 24 Hours (Table) 02/24/19 11:08 Blood Culture - Preliminary Blood No Growth after 72 hours Assessment and Plan Assessment: Assessment: #1. Acute right lateral lung pneumonia, possibly community-acquired #2. Acute urinary tract infection, with failure of outpatient treatment, hematuria #3. Lactic acidosis, mild, improved with hydration #4. History of kidney stones, status post lithotripsy #5. Recent fall with loss of consciousness, with CT had and neck showing no acute process. Patient sustained laceration to her forehead, and bruising around her left eye #6. Diabetes mellitus type II #7. 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 Anxiety #10. Former smoker, quit smoking in June 2018 #11. Hypertension #12. Chronic pain syndrome Plan: The patient was seen and evaluated by Dr. Bai. Plan is for bronchoscopy with BAL today. We'll continue with vancomycin and cefepime. Continue bronchodilators and Symbicort. Increase her activity as tolerated. We'll continue to follow and make further recommendations based on her clinical status. I, the cosigning physician, performed a history & physical examination of the patient. Lungs sounds with scattered rhonchi more so on the right lung Maintaining good O2 saturations in the 90s on room air. I discussed the assessment and plan of care with my nurse practitioner, Caroline Medeiros. I attest to the above note as dictated by her.
[2019-02-28 12:02] LABS: Glucose,Whole Blood 109 mg/dL (75-99)
[2019-02-28] MEDS: CEFEPIME 1 GM in SODIUM CHLORIDE 0.9% 50 ML IVPB SCH ×2 (12:32→20:17)
[2019-02-28] MEDS ORDERED: PROPOFOL 10 MG/ML 20 ML VIAL IV ONE (14:07)
[2019-02-28] MEDS ORDERED: MIDAZOLAM 2 MG/2 ML VIAL ONE (14:07)
[2019-02-28] MEDS ORDERED: fentaNYL (PF) 50 MCG/ML 2 ML AMP ONE (14:07)
[2019-02-28] MEDS ORDERED: LIDOCAINE 2% INJ 20 MG/ML INTRATRACH ONE (14:19)
[2019-02-28] MEDS ORDERED: IV FLUID CONTINUATION 1,000 ML IV ONE (14:21)
[2019-02-28 16:33] LABS: Glucose,Whole Blood 109 mg/dL (75-99)
--- NOTE | 2019-02-28 16:40 | CT ---
EXAMINATION TYPE: CT abdomen w con DATE OF EXAM: 02/28/2019 COMPARISON: CT angiogram of the chest dated 02/24/2019, renal ultrasound 02/24/2019 HISTORY: abnormal US, renal mass CT DLP: 889.9 mGycm Automated exposure control for dose reduction was used. TECHNIQUE: Helical acquisition of images was performed from the lung bases through the top of iliac crest to include entire abdomen. CONTRAST: Performed without Oral Contrast and with IV Contrast, patient injected with 100 mL of Isovue 300. FINDINGS: There are some coronary artery calcifications present. Hiatal hernia is noted. Postop harrell es are present at the right lung base. Right hemidiaphragm is elevated. LUNG BASES: Some air bronchograms are again noted along the right hemidiaphragm with associated surgi marilyn clips. LIVER/GB: Enlarged and shows low attenuation likely due to hepatic steatosis and liver is enlarged. P atient is post cholecystectomy, prominence of the biliary system likely due to post cholecystectomy c hange PANCREAS: No significant abnormality is seen. SPLEEN: No significant abnormality is seen. ADRENALS: No significant abnormality is seen. KIDNEYS: Lower pole calculi are present bilaterally within the kidneys. Kidneys show lobular contour bilaterally. No hydronephrosis. 2 mm posterior left mid pole cortical cyst is present. Small cortical cyst at the lower pole the left kidney exophytic location measures 16 mm. Additionally at the lower pole inferiorly there is a cortical cyst measuring 1 cm. No additional renal mass. Extrarenal pelvis noted on the left. Extrarenal pelvis also noted on the right BOWEL: Colonic interposition noted anterior to the liver. LYMPH NODES: No significant abnormality is appreciated. OSSEOUS STRUCTURES: There are degenerative disc changes as well as a spinal curvature present. Mild anterior wedging at superior endplate present at T12 level. FREE AIR: No Free Air visible ASCITES: None visible. RETROPERITONEAL ADENOPATHY: No Retroperitoneal Adenopathy visible. OTHER: Aorta is dense. IMPRESSION: BILATERAL NEPHROLITHIASIS. CORTICAL CYSTS WITHOUT SOLID RENAL MASS TO CORRESPOND TO ULTRASOUND ABNORM ALITY. POSTOP CHANGES. HEPATIC STEATOSIS, HEPATOMEGALY.
--- NOTE | 2019-02-28 17:09 | P.PN ---
Subjective Progress Note Date: 02/28/19 The patient is a 73 yo F with a PMH of COPD, right diaphragmatic paralysis status post diaphragmatic plication (2012), tobacco abuse, diabetes mellitus, and hypertension presented to the ED due to persistent cough productive of brown phlegm along with dysuria with hematuria. The patient has been following with Dr. Bai as an outpatient for persistent cough and had been taking a course of azithromycin. The patient had also suffered a fall roughly 3 weeks ago with which she suffered laceration of the face which was sutured in the emergency room and the patient was discharged to home. The patient reports urinary complaints ongoing for the past 3-4 weeks, for which she was taking Keflex as an outpatient. The patient had subsequently developed diarrhea and feeling ill, for which she came to the ED. 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 Pulmonary medicine was consulted and recommendations were appreciated. The patient was scheduled for bronchoscopy for 02/28 which she underwent without complication. She was seen and examined at the bedside on 02/28 at 10 am, prior to her bronchoscopy. She noted continued cough though den ied chest pain. She also denied any additional hematuria. Objective - Vital Signs Vital signs: Vital Signs Temp 97.7 F 02/28/19 14:00 Pulse 85 02/28/19 16:00 Resp 17 02/28/19 16:00 BP 179/83 02/28/19 14:00 Pulse Ox 92 L 02/28/19 14:00 Intake & Output 02/27/19 02/28/19 02/28/19 18:59 06:59 18:59 Intake Total 1340 620 770 Balance 1340 620 770 Intake: IV 620 140 770 Cefepime 1 gm In Sodium 50 50 50 Chloride 0.9% 50 ml @ 100 mls/hr IVPB Q12HR [facility] Rx #:[id number] Invasive Line 4 30 Sodium Chloride 0.9% 1, 320 90 240 000 ml @ 30 mls/hr IV . Q24H [facility] Rx#:[id number] Vancomycin 1,250 mg In 250 250 Sodium Chloride 0.9% 250 ml @ 125 mls/hr IVPB Q8H [facility] Rx#:[id number] Oral 720 480 0 Other: Voiding Method Toilet Toilet Toilet # Voids 4 1 2 - Exam General: Non-toxic, in no acute distress, appears stated age, normal weight HEENT: NC/AT, anicteric sclerae, moist conjunctiva, no lid-lag, PERRLA Cardiovascular: S1/S2 wnl, no murmurs, rubs, or gallops Lungs: Scattered rhonchi, normal respiratory effort, no accessory muscle use Abdominal: Soft, non-tender, non-distended, no guarding, rebound, or rigidity Skin: Warm, dry Extremities: No edema or contractures Psychiatric: Alert and oriented to person, place and time, appropriate affect Neuro: CN II-XII grossly intact, Strength 5/5 in all 4 extremities, Speech intac t, Sensation to light touch grossly intact throughout - Labs CBC & Chem 7: 02/25/19 05:58 02/28/19 06:28 Labs: Abnormal Lab Results - Last 24 Hours (Table) 02/27/19 02/27/19 02/28/19 Range/Units 17:04 20:28 06:10 POC Glucose (mg/dL) 115 H 198 H 129 H (75-99) mg/dL 02/28/19 02/28/19 Range/Units 11:59 16:31 POC Glucose (mg/dL) 109 H 109 H (75-99) mg/dL Microbiology - Last 24 Hours (Table) 02/24/19 11:08 Blood Culture - Preliminary Blood No Growth after 96 hours 02/26/19 10:08 Gram Stain - Final Sputum Sputum Culture - Final Assessment and Plan Plan: Pneumonia, community-acquired versus healthcare associated -Pulmonary medicine following -Continue with vancomycin and cefepime for now -S/p bronchoscopy -Antitussives Acute urinary tract infection with enterococcus -Continue with vancomycin -Failed Keflex as an outpatient COPD, not in acute exacerbation -Continue with Symbicort -Continue with DuoNeb's Renal mass on US -F/u CT abd shows cortical cysts without solid renal mass Type 2 diabetes mellitus -Insulin sliding scale and blood glucose monitoring Hypertension -Continue with home med: Lopressor DVT prophylaxis -Heparin Discussed with: Patient Anticipated discharge date: 03/[address]: Home A total of 35 minutes was spent on the care of this complex patient more than 5 0% of the time was spent in counseling and care coordination.
[2019-02-28 20:10] LABS: Glucose,Whole Blood 137 mg/dL (75-99)
[2019-02-28] MEDS: ZOLPIDEM 10 MG TAB PO SCH (20:16)
--- NOTE | 2019-02-28 22:00 | PCN ---
PROCEDURE NOTE PROCEDURE: Bronchoscopy, airway examination, therapeutic lavage, bronchoalveolar lavage, right middle lobe. PREOPERATIVE DIAGNOSIS: Pneumonia, right lung. POSTOPERATIVE DIAGNOSIS: Pneumonia, right lung. OPERATORS: 1. Dr. Bai. 2. Dr. Medeiros. There was informed consent. There was universal timeout. RAP ARTIST provided unconscious sedation and general anesthesia. The patient's procedure was done in room #2. Again there was informed consent and universal timeout. PROCEDURE DESCRIPTION: After the patient was adequately sedated and being fully monitored, the bronchoscope was inserted through the right nostril. It passed through the right nasopharynx into the oropharynx. The hypopharynx was identified. The anterior commissure, true cords, false cords, arytenoids, piriform sinuses, right and left valleculae and epiglottis all appeared relatively normal. After topicalization, the bronchoscope was pushed through the glottic opening into the trachea. Trachea appeared normal. Tracheal kilo was sharp. Right and left mainstem were topicalized. After topicalization, there was a thorough evaluation of the right upper lobe and its 3 segments, the right lower lobe and its 2 segments, the right lower lobe and its 5 segments, the left upper lobe proper and its 2 segments, the lingula and its 2 segments and the left lower lobe and its 4 segments. Findings were similar throughout. There was diffuse airway erythema and hyperemia. It was quite significant. There were secretions noted throughout. They had a purulent nature about them. There was no dominant mass or tumor. The mucosa was friable and bled easily. After the secretions were suctioned, the bronchoscope was wedged into the right middle lobe. The BAL took place. The patient tolerated the procedure well. About 25 mL was collected. The specimen will be sent to the laboratory. The bronchoscope was withdrawn. The patient will be recovered. MMODL / IJN: [id number] /
[2019-03-01] MEDS: guaiFENesin-Coden 100-10MG/5ML 10 ML CUP PO PRN ×3 (02:23→11:36)
[2019-03-01] MEDS: ACETAMINOPHEN TAB 325 MG TAB PO PRN ×2 (05:31→11:35)
[2019-03-01 06:07] LABS: Glucose,Whole Blood 145 mg/dL (75-99)
[2019-03-01] MEDS: INSULIN ASPART (NovoLOG) 100 UNIT/ML VIAL SQ SCH ×2 (06:42→12:23)
[2019-03-01] MEDS: PANTOPRAZOLE 40 MG TABLET PO SCH (06:47)
[2019-03-01 07:20] LABS: African American GFR (CKD) >90 (>60 ml/min/1.73 sqM)
[2019-03-01] MEDS: CHOLECALCIFEROL 1,000 UNIT TAB PO SCH (08:08)
[2019-03-01] MEDS: VANCOMYCIN 1,000 MG in SODIUM CHLORIDE 0.9% 250 ML IVPB SCH (08:08)
[2019-03-01] MEDS: HEPARIN SODIUM,PORCINE 5,000 UNIT/ML 1 ML VIAL SQ SCH (08:08)
[2019-03-01] MEDS: METOPROLOL TARTRATE 50 MG TAB PO SCH (08:09)
[2019-03-01] MEDS: IPRATROPIUM-ALBUTEROL 3 ML NEB INHALATION SCH ×2 (08:32→11:30)
[2019-03-01] MEDS: SYMBICORT 160-4.5 MCG INHALER INHALATION SCH (08:32)
[2019-03-01 09:25] VITALS: BP 154/67; PULSE 84; RESP 16; TEMP 97.4
--- NOTE | 2019-03-01 11:30 | P.PN ---
Subjective Progress Note Date: 03/01/19 Principal diagnosis: Acute right lateral lung pneumonia, community-acquired This is 73-year-old white female patient of Dr. 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 She was in Dr. Bai's office for follow-up after being treated for acute tracheobronchitis, and patient completed a course of azithromycin. Most recently 3 weeks ago patient sustained a fall, where she lost consciousness briefly for a few seconds, and apparently patient had stumbled and bumped her head. She injured the left side of her body and facial area. She denies any loss of bladder control, she was very short of breath after she awoke. She was seen in the emergency department, and her laceration on her forehead was sutured. Patient at that time was finishing her outpatient course of Keflex for urinary tract infection. She follows with the urologist from [place], and apparently has been having hematuria, in the past she had she's had kidney stones with lithotripsy. In the emergency department CT of the brain and cervical spine were negative, was no acute intracranial process, or acute fracture or subluxation. Patient also has underlying history of severe COPD, with FEV1 of 65% of predicted, patient is a smoker, she also has history of right to have intermittent paralysis status post diaphragmatic plication in 2013 that [facility]. She has been battling with cough, and congestion, and failed to improve despite the outpatient treatment. Chest x-ray was taken in the ED showing right basilar consolidation suspicious for unifocal pneumonia. Patient also had evidence of gross pyuria, and hematuria with positive nitrates and leukocyte esterase in the urinalysis, white blood cell count was within normal limits at 9.1, electrodes and renal profile was normal, lactic acid was elevated at 2.4. Patient was afebrile, but tachycardic with a rate of 122 to 1:30 BPM, EKG showed sinus tachycardia with incomplete right bundle branch block pattern, no acute ischemic changes. She received a dose of cefepime and vancomycin in the emergency department, she was started on breathing treatments, and were seen this patient in consultation for possibility of right lower lobe pneumonia. The patient is seen today 02/25/2019 in follow-up on the selective care unit. She is presently awake and alert in no acute distress. Resting quite comfortably in bed. She is still short of breath with exertion. Still some cough and congestion. Maintaining good O2 saturations in the 90s on room air. She's been afebrile. Hemodynamically stable. Blood culture reveals no growth to date. Urine culture pending. White count 5.4. Hemoglobin 11.1. Creatinine 0.56. She remains on DuoNeb inhalations, Symbicort, antibiotics in the form of vancomycin and cefepime. CT angiogram ruled out pulmonary embolism. There is a right lower lobe and to a lesser right upper lobe airspace consolidation consistent with pneumonia. Reevaluated today on 02/26/2019, patient is feeling a bit better however she continues to have intermittent episodes of cough, no wheezing, no fever, no chills, no hemoptysis, and no chest pain. No labs done today, except for her sugar being 128. Her urine culture and seems to be positive for group D enterococcus hence I will recommend Unasyn. May consider stopping vancomycin. Blood cultures remain negative. Patient is now on cefepime and vancomycin, I think both could be switched to Unasyn for her group D enterococcus urinary tract infection. The patient is seen today 02/28/2019 in follow-up. She is currently sitting up in a chair at the bedside. Awake and alert in no acute distress. She is maintaining O2 saturations in the low 90s on room air. She continues with a loose nonproductive cough. Still dyspneic on exertion. The plan is for bronchoscopy with BAL today. Blood culture reveals no growth. Urine was positive for enterococcus faecium. Sputum cultures pending. She remains on DuoNeb inhalations, Symbicort. Antibiotics in the form of vancomycin and cefepime. The patient is seen today 03/01/2019 in follow-up on the selective care unit. She is awake and alert in no acute distress. She is breathing quite a bit easier today as compared to yesterday. She is status post bronchoscopy with BAL. Cultures are pending. Blood glucose 145. Creatinine 0.61. She has been continued on vancomycin and cefepime. Maintaining good O2 saturations in the 90s on room air. She is anxious to go home. Objective - Vital Signs Vital signs: Vital Signs Temp 97.4 F L 03/01/19 07:00 Pulse 84 03/01/19 08:00 Resp 16 03/01/19 08:00 BP 154/67 03/01/19 07:00 Pulse Ox 92 L 03/01/19 07:00 Intake & Output 02/28/19 03/01/19 03/01/19 18:59 06:59 18:59 Intake Total 970 380 170 Balance 970 380 170 Intake: IV 770 140 20 Cefepime 1 gm In Sodium 50 50 Chloride 0.9% 50 ml @ 100 mls/hr IVPB Q12HR ERMIAS Rx #:[id number] Invasive Line 4 30 20 Sodium Chloride 0.9% 1, 240 90 000 ml @ 30 mls/hr IV . Q24H ERMIAS Rx#:[id number] Vancomycin 1,250 mg In 250 Sodium Chloride 0.9% 250 ml @ 125 mls/hr IVPB Q8H ERMIAS Rx#:[id number] Oral 200 240 150 Other: Voiding Method Toilet Toilet Toilet # Voids 2 1 0 - Exam GENERAL EXAM: Alert, pleasant, 73-year-old female patient, comfortable in no apparent distress. On room air. HEAD: Normocephalic/atraumatic. There is a healed laceration on her forehead, and fading bruising in the left periorbital area NOSE: Clear with pink turbinates. THROAT: No erythema or exudates. NECK: No masses, no JVD, no thyroid enlargement, no adenopathy. CHEST: No chest wall deformity. Symmetrical expansion. LUNGS: Equal air entry with diminished breath sounds with diminished breath sounds over right lower lobe CVS: Regular rate and rhythm, normal S1 and S2, no gallops, no murmurs, no rubs ABDOMEN: Soft, nontender. No hepatosplenomegaly, normal bowel sounds, no guarding or rigidity. EXTREMITIES: No clubbing, no edema, no cyanosis, 2+ pulses and upper and lower extremities. MUSCULOSKELETAL: Muscle strength and tone normal. SPINE: No scoliosis or deformity SKIN: No rashes CENTRAL NERVOUS SYSTEM: No focal deficits, tone is normal in all 4 extremities. PSYCHIATRIC: Alert and oriented -3. Appropriate affect. Intact judgment and insight. - Labs CBC & Chem 7: 02/25/19 05:58 03/01/19 06:22 Labs: Abnormal Lab Results - Last 24 Hours (Table) 02/28/19 02/28/19 02/28/19 Range/Units 11:59 16:31 20:08 POC Glucose (mg/dL) 109 H 109 H 137 H (75-99) mg/dL 03/01/19 Range/Units 06:06 POC Glucose (mg/dL) 145 H (75-99) mg/dL Microbiology - Last 24 Hours (Table) 02/24/19 11:08 Blood Culture - Preliminary Blood No Growth after 96 hours 02/26/19 10:08 Gram Stain - Final Sputum Sputum Culture - Final Assessment and Plan Assessment: Assessment: #1. Acute right lateral lung pneumonia, possibly community-acquired. Status post bronchoscopy with BAL on 02/28/2019. Cultures pending. #2. Acute urinary tract infection, with failure of outpatient treatment, hematuria #3. Lactic acidosis, mild, improved with hydration #4. History of kidney stones, status post lithotripsy #5. Recent fall with loss of consciousness, with CT had and neck showing no acute process. Patient sustained laceration to her forehead, and bruising around her left eye #6. Diabetes mellitus type II #7. 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 Anxiety #10. Former smoker, quit smoking in June 2018 #11. Hypertension #12. Chronic pain syndrome Plan: The patient was seen and evaluated by Dr. Bai. Bronchoscopy performed yesterday. She is improved clinically and could be discharged home. Continue course of antibiotics. Continue her home pulmonary medications. Follow-up in our office in 1-2 weeks' time. She is encouraged to call sooner with any recurrence of symptoms or other questions or concerns. I, the cosigning physician, performed a history & physical examination of the patient. Lungs sounds with few scattered rhonchi more so on the right lung Maintaining good O2 saturations in the 90s on room air. I discussed the assessment and plan of care with my nurse practitioner, Caroline Medeiros. I attest to the above note as dictated by her.
[2019-03-01] MEDS: CEFEPIME 1 GM in SODIUM CHLORIDE 0.9% 50 ML IVPB SCH (11:37)
[2019-03-01 14:00] LABS: Appearance,BF Blood Tinged; Nucleated Cells, Body Fluid 1220 /uL; RBC, Body Fluid 6530 /uL
[2019-03-01 14:08] LABS: Mononuclear WBC,Body Fluid 20 %; Polynuclear WBC,Body Fluid 80 %; Total Cells Counted,Body Fluid 100
[2019-03-01] MEDS ORDERED: VANCOMYCIN TROUGH DUE 1 EACH MISC MISCELLANE ONE (15:00)
--- NOTE | 2019-03-01 15:43 | P.DS ---
Providers Date of admission: 02/24/19 14:18 Expected date of discharge: 03/01/19 Attending physician: Sandie Hand MD Consults: 02/24/19 14:11 Consult Physician Routine Consulting Provider: Rishi Bai Consult Reason/Comments: pneumonia Do you want consulting provider notified?: Yes [facility] Course: The patient is a 73 yo F with a PMH of COPD, right diaphragmatic paralysis status post diaphragmatic plication (2012), tobacco abuse, diabetes mellitus, and hypertension presented to the ED due to persistent cough productive of brown phlegm along with dysuria with hematuria. The patient has been following with Dr. Bai as an outpatient for persistent cough and had been taking a course of azithromycin. The patient had also suffered a fall roughly 3 weeks ago with which she suffered laceration of the face which was sutured in the emergency room and the patient was discharged to home. The patient reports urinary compl aints ongoing for the past 3-4 weeks, for which she was taking Keflex as an outpatient. The patient had subsequently developed diarrhea and feeling ill, for which she came to the ED. 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 Pulmonary medicine was consulted and recommendations were appreciated. The patient was scheduled for bronchoscopy for 02/28 which she underwent without complication. The patient also underwent a CT abdomen for further evaluation of possible renal mass on ultrasound. CT abdomen revealed only renal cysts and nonobstructing renal calculi. The patient was seen and evaluated at the bedside and discharge. She noted significant improvement in her breathing along with her cough. She denied fever, chills, nausea, vomiting, or chest pain. She noted no further episodes of hematuria and denied dysuria. Patient is ready and agreeable for discharge to home with follow-up with pulmonary medicine for the results of the BAL. Physical Examination General: Non-toxic, in no acute distress, appears stated age, normal weight HEENT: NC/AT, anicteric sclerae, moist conjunctiva, no lid-lag, PERRLA Cardiovascular: S1/S2 wnl, no murmurs, rubs, or gallops Lungs: Clear to auscultation, normal respiratory effort, no accessory muscle use Abdominal: Soft, non-tender, non-distended, no guarding, rebound, or rigidity Skin: Warm, dry Extremities: No edema or contractures Psychiatric: Alert and oriented to person, place and time, appropriate affect Neuro: CN II-XII grossly intact, Strength 5/5 in all 4 extremities, Speech intact, Sensation to light touch grossly intact throughout Discharge diagnosis: Pneumonia, healthcare associated; urinary tract infection with enterococcus uncomplicated; COPD, not in acute exacerbation; type 2 diabetes mellitus; hypertension A total of 35 minutes of time were spent preparing this complex discharge summary. Patient Condition at Discharge: Stable Plan - Discharge Summary Discharge Rx Participant: No New Discharge Prescriptions: New Amoxic-Pot Clav 875-125Mg [Augmentin 875-125] 1 tab PO BID 4 Days #8 tab guaiFENesin-Coden 100-10MG/5ML [Robitussin AC] 5 - 10 ml PO Q6H PRN 3 Days #120 ml PRN Reason: cough Continue Metoprolol Tartrate [Lopressor] 100 mg PO BID metFORMIN HCL ER [Glucophage Xr] 500 mg PO BID-W/MEALS Dulaglutide [Trulicity] 1.5 mg SQ SA Zolpidem [Ambien] 10 mg PO HS Acetaminophen [Tylenol Extra Strength] 1,000 mg PO Q8H PRN PRN Reason: Pain Cholecalciferol [Vitamin D3 (25 Mcg = 1000 Iu)] 5,000 unit PO DAILY Albuterol Inhaler [Ventolin Hfa Inhaler] 1 puff PO Q6H PRN PRN Reason: Shortness Of Breath Budesonide-Formot 160-4.5 Mcg [Symbicort 160-4.5 Mcg Inhaler] 2 puff INHALATION BID Hydrochlorothiazide 50 mg PO DAILY PRN PRN Reason: Edema Discharge Medication List Metoprolol Tartrate [Lopressor] 100 mg PO BID 10/05/17 [History] Dulaglutide [Trulicity] 1.5 mg SQ SA 02/04/19 [History] Zolpidem [Ambien] 10 mg PO HS 02/04/19 [History] metFORMIN HCL ER [Glucophage Xr] 500 mg PO BID-W/MEALS 02/04/19 [History] Acetaminophen [Tylenol Extra Strength] 1,000 mg PO Q8H PRN 02/24/19 [History] Albuterol Inhaler [Ventolin Hfa Inhaler] 1 puff PO Q6H PRN 02/24/19 [History] Budesonide-Formot 160-4.5 Mcg [Symbicort 160-4.5 Mcg Inhaler] 2 puff INHALATION BID 02/24/19 [History] Cholecalciferol [Vitamin D3 (25 Mcg = 1000 Iu)] 5,000 unit PO DAILY 02/24/19 [History] Hydrochlorothiazide 50 mg PO DAILY PRN 02/27/19 [History] Amoxic-Pot Clav 875-125Mg [Augmentin 875-125] 1 tab PO BID 4 Days #8 tab 03/01/19 [Rx] guaiFENesin-Coden 100-10MG/5ML [Robitussin AC] 5 - 10 ml PO Q6H PRN 3 Days #120 ml 03/01/19 [Rx] Follow up Appointment(s)/Referral(s): Rishi Bai DO [Doctor of Osteopathic Medicine] - 03/14/19 2:15 pm (Appointment pushed up from .) Katherin De León MD [Primary Care Provider] - 03/02/19 11:15 am () Parveen Dawson DO [REFERRING] - 1 Week (Unable to reach someone at the office, please call for a follow up appointment.) Patient Instructions/Handouts: Urinary Tract Infection in Women (DC), Community Acquired Pneumonia (DC), Flexible Bronchoscopy (DC) Discharge Disposition: HOME SELF-CARE
== END 2019-03-01 14:45 | disposition home or self-care (01) | DRG 194 ==
LOC: EC 10:43 → 3SCARD 14:18
PROVIDERS: ADMIT Family Medicine; ATTEND Family Medicine
PROC: 0B9D8ZX Drainage of Right Middle Lung Lobe, Via Natural or Artificial Opening Endoscopic, Diagnostic (ICD-10-PCS; principal; 2019-02-28 13:45)
DX: J18.1 Lobar pneumonia, unspecified organism (principal); E87.2 Acidosis; N39.0 Urinary tract infection, site not specified; Z87.891 Personal history of nicotine dependence; Y95 Nosocomial condition; E86.0 Dehydration; E11.65 Type 2 diabetes mellitus with hyperglycemia; G89.4 Chronic pain syndrome; F41.9 Anxiety disorder, unspecified; I10 Essential (primary) hypertension; J98.6 Disorders of diaphragm; N20.0 Calculus of kidney; N28.1 Cyst of kidney, acquired; B95.2 Enterococcus as the cause of diseases classified elsewhere; I45.10 Unspecified right bundle-branch block; Z79.84 Long term (current) use of oral hypoglycemic drugs; Z79.51 Long term (current) use of inhaled steroids; S01.81XD Laceration without foreign body of other part of head, subsequent encounter; W19.XXXD Unspecified fall, subsequent encounter; J43.9 Emphysema, unspecified; Z79.899 Other long term (current) drug therapy; Z80.0 Family history of malignant neoplasm of digestive organs; Z87.442 Personal history of urinary calculi; Z80.8 Family history of malignant neoplasm of other organs or systems; Z82.49 Family history of ischemic heart disease and other diseases of the circulatory system; R79.1 Abnormal coagulation profile; R19.7 Diarrhea, unspecified; Z88.1 Allergy status to other antibiotic agents; Z98.49 Cataract extraction status, unspecified eye
CPT/HCPCS: 31624; 36415; 71046; 71275; 74160; 76770; 80048; 80053; 80202; 81001; 82565; 83605; 83735; 85025; 85379; 85610; 85730; 87040; 87070; 87077; 87086; 87102; 87116; 87186; 87205; 87206; 87252; 87496; 87498; 87502; 87529; 87634; 87798; 88108; 88305; 89050; 93005; 94640; 94760; 96365; 96366; 99285

== ENCOUNTER → 2019-05-03 | Outpatient (CLI) | payer MEDICARE, BC ==
[2019-05-03 13:27] LABS: Basophils % (A) 1 %; Eosinophils # (A) 0.1 k/uL (0-0.7); Eosinophils % (A) 2 %; HCT 45.8 % (34.0-46.0); HGB 15.1 gm/dL (11.4-16.0); Lymphocytes # (A) 1.6 k/uL (1.0-4.8); Lymphocytes % (A) 27 %; MCH 30.8 pg (25.0-35.0); MCHC 33.1 g/dL (31.0-37.0); Mean Platelet Volume 7.6; Monocytes # (A) 0.4 k/uL (0-1.0); Monocytes % (A) 7 %; Neutrophils # (A) 3.5 k/uL (1.3-7.7); Neutrophils % (A) 62 %; Platelet Count 296 k/uL (150-450); RBC 4.92 m/uL (3.80-5.40); RDW 12.7 % (11.5-15.5); WBC 5.8 k/uL (3.8-10.6)
[2019-05-03 13:34] LABS: Albumin 4.8 g/dL (3.5-5.0); Calcium 10.3 mg/dL (8.4-10.2); Potassium 4.3 mmol/L (3.5-5.1); Total Bilirubin 0.7 mg/dL (0.2-1.3); Total Protein 7.6 g/dL (6.3-8.2)
[2019-05-03 13:37] LABS: Appearance,Urine Clear (Clear); Bacteria,Urine Rare /hpf; Bilirubin,Urine Negative (Negative); Blood,Urine Moderate (Negative); Color,Urine Yellow; Glucose,Urine (UA) Negative (Negative); Ketones,Urine Negative (Negative); Leukocyte Esterase,Urine Moderate (Negative); Mucus,Urine Rare /hpf; Nitrite,Urine Negative (Negative); PH, Urine 6.5 (5.0-8.0); Protein,Urine Negative (Negative); RBC,Urine 107 /hpf (0-5); Specific Gravity,Urine 1.012 (1.001-1.035); Squamous Epithelial Cell,Urine <1 /hpf (0-4); Urobilinogen,Urine <2.0 mg/dL (<2.0); WBC,Urine 16 /hpf (0-5)
[2019-05-03 14:10] LABS: ALT 35 U/L (9-52); AST 30 U/L (14-36); Cholesterol 192 mg/dL (<200); HDL Cholesterol 77 mg/dL (40-60); LDL Cholesterol,Calculated 88 mg/dL (0-99); Triglycerides 133 mg/dL (<150)
--- NOTE | 2019-05-03 14:37 | US ---
EXAMINATION TYPE: US carotid duplex BILAT DATE OF EXAM: 05/03/2019 COMPARISON: NONE CLINICAL HISTORY: R55 SYNCOPE AND COLLAPSE. Syncope, HTN EXAM MEASUREMENTS: RIGHT: Peak Systolic Velocity (PSV) cm/sec ----- Right CCA: 53.1 ----- Right ICA: 76.5 ----- Right ECA: 66.0 ICA/CCA ratio: 1.4 RIGHT: End Diastole cm/sec ----- Right CCA: 16.1 ----- Right ICA: 33.6 ----- Right ECA: 0.0 LEFT: Peak Systolic Velocity (PSV) cm/sec ----- Left CCA: 49.5 ----- Left ICA: 88.8 ----- Left ECA: 66.6 ICA/CCA ratio: 1.8 LEFT: End Diastole cm/sec ----- Left CCA: 14.0 ----- Left ICA: 31.8 ----- Left ECA: 0.0 VERTEBRALS (direction of flow): Right Vertebral: Antegrade Left Vertebral: Antegrade Rhythm: Normal No elevated velocities or significant stenosis. Bilateral wall thickening. Plaque visualized bilater al bulbs. IMPRESSION: Mild degree of grayscale atheromatous plaquing with no sonographically evident hemodynam ically significant stenosis within either visualized carotid arterial system. Criteria for Assigning % of Stenosis / Diameter reduction (Estimation based on the indirect measurements of the internal carotid artery velocities (ICA PSV). 1. Normal (no stenosis)=ICA PSV < 125 cm/s: ratio < 2.0: ICA EDV<40 cm/s. 2. Less than 50% stenosis=ICA PSV < 125 cm/s: ratio < 2.0: ICA EDV<40 cm/s. 3. 50 to 69% stenosis=ICA PSV of 125 to 230 cm/s: ration 2.0 ? 4.0: ICA EDV 40-100 cm/s. 4. Greater than 70% stenosis to near occlusion= ICA PSV > 230 cm/s: ratio > 4.0: ICA EDV > 100 cm/s. 5. Near occlusion= ICA PSV velocities may be low or undetectable: variable ratio and ICA EDV. 6. Total occlusion=unable to detect flow.
--- NOTE | 2019-05-03 16:00 | ECHOF ---
Referral Reason:R55 syncope and collapse MEASUREMENTS -------- HEIGHT: 170.2 cm WEIGHT: 65.8 kg BP: RVIDd: 2.9 cm (< 3.3) IVSd: 1.2 cm (0.6 - 1.1) LVIDd: 3.5 cm (3.9 - 5.3) LVPWd: 1.2 cm (0.6 - 1.1) IVSs: 1.5 cm LVIDs: 2.6 cm LVPWs: 1.4 cm LA Diam: 2.7 cm (2.7 - 3.8) Ao Diam: 2.8 cm (2.0 - 3.7) AV Cusp: 1.6 cm (1.5 - 2.6) LA Diam: 3.6 cm (2.7 - 3.8) MV EXCURSION: 15.488 mm (> 18.000) MV EF SLOPE: 60 mm/s (70 - 150) EPSS: 0.5 cm MV E Alfredo: 0.44 m/s MV DecT: 239 ms MV A Alfredo: 0.92 m/s MV E/A Ratio: 0.48 RAP: 5.00 mmHg RVSP: 16.07 mmHg FINDINGS -------- Sinus rhythm. This was a technically adequate study. The left ventricular size is normal. There is mild concentric left ventricular hypertrophy. Overa ll left ventricular systolic function is normal with, an EF between 55 - 60 %. The right ventricle is normal in size. The left atrial size is normal. There is mild aortic valve sclerosis. There is no evidence of aortic regurgitation. Mild mitral annular calcification present. Mild mitral regurgitation is present. Mild tricuspid regurgitation present. Right ventricular systolic pressure is normal at < 35 mmHg. There is no evidence of pulmonary hypertension. There is no pulmonic regurgitation present. The aortic root size is normal. There is no pericardial effusion. CONCLUSIONS -------- 1. Sinus rhythm. 2. This was a technically adequate study. 3. The left ventricular size is normal. 4. There is mild concentric left ventricular hypertrophy. 5. Overall left ventricular systolic function is normal with, an EF between 55 - 60 %. 6. The right ventricle is normal in size. 7. The left atrial size is normal. 8. There is mild aortic valve sclerosis. 9. Mild mitral annular calcification present. 10. Mild mitral regurgitation is present. 11. Mild tricuspid regurgitation present. 12. Right ventricular systolic pressure is normal at < 35 mmHg. 13. There is no evidence of pulmonary hypertension. 14. There is no pulmonic regurgitation present. 15. The aortic root size is normal. 16. There is no pericardial effusion. [employer] MANAGER: Yulia Osman RDCS
[2019-05-03 19:24] LABS: Hemoglobin A1C 6.3 % (4.0-6.0)
== END | disposition home or self-care (01) ==
LOC: RADECHMAIN 11:19
PROVIDERS: ATTEND Internal Medicine
DX: I67.2 Cerebral atherosclerosis (principal); Z11.59 Encounter for screening for other viral diseases; E11.9 Type 2 diabetes mellitus without complications; I10 Essential (primary) hypertension
CPT/HCPCS: 80053; 80061; 81001; 82043; 82570; 83036; 84443; 84450; 84460; 85025; 86803; 93306; 93880

== ENCOUNTER → 2019-11-30 | Outpatient (CLI) | payer MEDICARE, BC | END | disposition home or self-care (01) | LOC: LABWHC1 11:24 | PROVIDERS: ATTEND Surgery | DX: U07.1 COVID-19 (principal) | CPT/HCPCS: U0003; C9803 ==

== ENCOUNTER 2019-12-05 11:54 | Day surgery (SDC) | payer MEDICARE, BC ==
[2019-12-04 09:11] VITALS: BMI 27.1
[~2019-12-05 11:54] MED LIST: LACTATED RINGERS 1,000 ML IV SCH
[2019-12-05 12:36] VITALS: TEMP 98.8
[2019-12-05 12:37] LABS: Glucose,Whole Blood 138 mg/dL (75-99)
[2019-12-05] MEDS ORDERED: LIDOCAINE 1% (10MG/ML) FOR IV START INTRADERMA ONE (12:38)
[2019-12-05] MEDS ORDERED: PROPOFOL 10 MG/ML 20 ML VIAL IV ONE (13:12)
[2019-12-05] MEDS ORDERED: LIDOCAINE 1% INJ 10MG/ML (20 ML MDV) ONE (13:12)
--- NOTE | 2019-12-05 13:44 | P.OP ---
Date of Procedure: 12/05/19 Preoperative Diagnosis: nausea, vomiting, colon cancer screening, family history of colon cancer Postoperative Diagnosis: Nausea, vomiting, colon cancer screening, family history of colon cancer, hiatal hernia, gastritis, diverticulosis Procedure(s) Performed: EGD with biopsy and colonoscopy Anesthesia: MAC Surgeon: Yaritza Sidhu Pathology: other (Antrum) Condition: stable Disposition: PACU Indications for Procedure: Patient presented for colon cancer screening. Her son was diagnosed with colon cancer. She also has had some nausea and vomiting. Description of Procedure: The patient is taken to the endoscopy suite were gastroscope is passed per mouth to the third and fourth portions of the duodenum. The pharynx is unremarkable. The esophagus is without evidence of esophagitis or mass lesion. She has a moderate fixed hiatal hernia. The stomach shows some chronic appearing gastritis in the antrum and cold biopsies were obtained. Otherwise the stomach, pylorus, duodenum without evidence of polyp, mass lesion, ulcer, other mucosal abnormality. The villous pattern of the duodenum appeared normal. She is then repositioned in a colonoscope was passed per rectum to the cecum. She had a good prep. There is some liquidy material which is easily irrigated and asp irated. She has diverticulosis primarily in the sigmoid colon. The colon is otherwise without evidence of polyp, mass lesion, ulcer, stricture or other mucosal abnormality. Specifically in the sigmoid colon there is no inflammatory change. She tolerated the procedure without difficulty and was taken recovery room in satisfactory condition. I will see her in the office for follow-up. 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 Further recommendations to follow. Plan - Discharge Summary Discharge Rx Participant: No New Discharge Prescriptions: No Action Metoprolol Tartrate [Lopressor] 100 mg PO BID metFORMIN HCL ER [Glucophage Xr] 1,000 mg PO BID-W/MEALS Dulaglutide [Trulicity] 1.5 mg SQ SA Zolpidem [Ambien] 10 mg PO HS Acetaminophen [Tylenol Extra Strength] 1,000 mg PO Q8H PRN PRN Reason: Pain Cholecalciferol [Vitamin D3 (25 Mcg = 1000 Iu)] 5,000 unit PO DAILY Albuterol Inhaler (Mhu) [Ventolin Hfa Inhaler (Mhu)] 1 puff PO Q6H PRN PRN Reason: Shortness Of Breath Budesonide-Formot 160-4.5 Mcg [Symbicort 160-4.5 Mcg Inhaler] 2 puff INHALATION BID Hydrochlorothiazide 50 mg PO DAILY PRN PRN Reason: Edema Renavive 1 tab PO DAILY Cyanocobalamin (Vitamin B-12) [Vitamin B-12] 1,000 mcg PO DAILY Pyridoxine HCl (Vitamin B6) [Vitamin B-6] 100 mg PO DAILY Discharge Medication List Metoprolol Tartrate [Lopressor] 100 mg PO BID 10/05/17 [History] Dulaglutide [Trulicity] 1.5 mg SQ SA 02/04/19 [History] Zolpidem [Ambien] 10 mg PO HS 02/04/19 [History] metFORMIN HCL ER [Glucophage Xr] 1,000 mg PO BID-W/MEALS 02/04/19 [History] Acetaminophen [Tylenol Extra Strength] 1,000 mg PO Q8H PRN 02/24/19 [History] Albuterol Inhaler (Mhu) [Ventolin Hfa Inhaler (Mhu)] 1 puff PO Q6H PRN 02/24/19 [History] Budesonide-Formot 160-4.5 Mcg [Symbicort 160-4.5 Mcg Inhaler] 2 puff INHALATION BID 02/24/19 [History] Cholecalciferol [Vitamin D3 (25 Mcg = 1000 Iu)] 5,000 unit PO DAILY 02/24/19 [History] Hydrochlorothiazide 50 mg PO DAILY PRN 02/27/19 [History] Cyanocobalamin (Vitamin B-12) [Vitamin B-12] 1,000 mcg PO DAILY 12/04/19 [History] Pyridoxine HCl (Vitamin B6) [Vitamin B-6] 100 mg PO DAILY 12/04/19 [History] Renavive 1 tab PO DAILY 12/04/19 [History] Follow up Appointment(s)/Referral(s): Yaritza Sidhu DO [Doctor of Osteopathic Medicine] - 1 Week Discharge Disposition: HOME SELF-CARE
[2019-12-05 14:17] VITALS: BP 127/67; PULSE 78; RESP 18
== END 2019-12-05 14:17 | disposition home or self-care (01) ==
LOC: ORWHC2ENDO 11:54
PROVIDERS: ATTEND Surgery
DX: K29.50 Unspecified chronic gastritis without bleeding (principal); K44.9 Diaphragmatic hernia without obstruction or gangrene; Z12.11 Encounter for screening for malignant neoplasm of colon; K57.30 Diverticulosis of large intestine without perforation or abscess without bleeding; E11.9 Type 2 diabetes mellitus without complications; R39.89 Other symptoms and signs involving the genitourinary system; G47.30 Sleep apnea, unspecified; M19.90 Unspecified osteoarthritis, unspecified site; E78.00 Pure hypercholesterolemia, unspecified; I10 Essential (primary) hypertension; N28.9 Disorder of kidney and ureter, unspecified; Q61.5 Medullary cystic kidney; M20.40 Other hammer toe(s) (acquired), unspecified foot; J44.9 Chronic obstructive pulmonary disease, unspecified; R55 Syncope and collapse; Z87.440 Personal history of urinary (tract) infections; Z79.1 Long term (current) use of non-steroidal anti-inflammatories (NSAID); Z79.899 Other long term (current) drug therapy; Z79.51 Long term (current) use of inhaled steroids; Z79.84 Long term (current) use of oral hypoglycemic drugs; Z87.442 Personal history of urinary calculi; Z87.09 Personal history of other diseases of the respiratory system; Z87.828 Personal history of other (healed) physical injury and trauma; Z98.890 Other specified postprocedural states; Z90.710 Acquired absence of both cervix and uterus; Z90.89 Acquired absence of other organs; Z98.41 Cataract extraction status, right eye; Z98.42 Cataract extraction status, left eye; Z87.891 Personal history of nicotine dependence; Z88.1 Allergy status to other antibiotic agents; Z80.0 Family history of malignant neoplasm of digestive organs; Z82.49 Family history of ischemic heart disease and other diseases of the circulatory system; Z83.3 Family history of diabetes mellitus; Z83.42 Family history of familial hypercholesterolemia; Z82.61 Family history of arthritis; Z83.49 Family history of other endocrine, nutritional and metabolic diseases; Z82.62 Family history of osteoporosis; Z83.79 Family history of other diseases of the digestive system
CPT/HCPCS: 43239; 88305; G0105; J2001; J2704

== ENCOUNTER → 2020-01-11 | Outpatient (CLI) | payer MEDICARE | END | disposition home or self-care (01) | LOC: CPPFTMAIN 10:16 | PROVIDERS: ATTEND Internal Medicine Critical Care Medicine | DX: J44.1 Chronic obstructive pulmonary disease with (acute) exacerbation (principal); R94.2 Abnormal results of pulmonary function studies | CPT/HCPCS: 94060; 94726; 94729 ==

== ENCOUNTER → 2020-01-26 | Outpatient (CLI) | payer MEDICARE, BC ==
[2020-01-26 15:04] LABS: Basophils # (A) 0.1 k/uL (0-0.2); Basophils % (A) 1 %; Eosinophils # (A) 0.1 k/uL (0-0.7); Eosinophils % (A) 2 %; HCT 43.9 % (34.0-46.0); HGB 14.3 gm/dL (11.4-16.0); Lymphocytes # (A) 1.4 k/uL (1.0-4.8); Lymphocytes % (A) 23 %; MCH 30.8 pg (25.0-35.0); MCHC 32.6 g/dL (31.0-37.0); MCV 94.6 fL (80.0-100.0); Mean Platelet Volume 7.5; Monocytes # (A) 0.4 k/uL (0-1.0); Monocytes % (A) 7 %; Neutrophils # (A) 3.8 k/uL (1.3-7.7); Neutrophils % (A) 64 %; Platelet Count 222 k/uL (150-450); RBC 4.65 m/uL (3.80-5.40); RDW 12.3 % (11.5-15.5); WBC 5.9 k/uL (3.8-10.6)
[2020-01-26 15:16] LABS: Potassium 4.1 mmol/L (3.5-5.1)
== END | disposition home or self-care (01) ==
LOC: LABPAT 14:13
PROVIDERS: ATTEND Surgery
DX: Z01.818 Encounter for other preprocedural examination (principal)
CPT/HCPCS: 36415; 80051; 85025; 86850; 86900; 86901

== ENCOUNTER → 2020-01-31 | Outpatient (CLI) | payer MEDICARE, BC | END | disposition home or self-care (01) | LOC: LABPAT 10:46 | PROVIDERS: ATTEND Surgery | DX: U07.1 COVID-19 (principal) | CPT/HCPCS: 36415; U0003; C9803 ==

== ENCOUNTER 2021-12-29 11:43 | Emergency (ER) | payer MEDICARE ==
[2021-12-29 11:49] VITALS: BP 137/82; PULSE 91; RESP 18; TEMP 100
--- NOTE | 2021-12-29 12:15 | ED ---
URI HPI - General Chief Complaint: Upper Respiratory Infection Stated Complaint: COVID + Time Seen by Provider: 12/29/21 11:50 Source: patient, RN notes reviewed Mode of arrival: ambulatory Limitations: no limitations - History of Present Illness Initial Comments: This a 76-year-old female presents emergency Department chief complaint of cough and cold like symptoms. Patient states symptoms started Wednesday night states that she did test positive at home for COVID-19. Patient has minimal shortness of breath states is only with congestion. She does have increasing body aches, nasal congestion nonproductive cough. No GI symptoms. Patient states that she wants to make sure if she has COVID-19 and to receive monoclonal antibodies. - Related Data Home Medications Medication Instructions Recorded Confirmed Metoprolol Tartrate [Lopressor] 100 mg PO BID 10/05/17 01/26/20 Dulaglutide [Trulicity] 1.5 mg SQ SA 02/04/19 01/26/20 Zolpidem [Ambien] 10 mg PO HS PRN 02/04/19 01/26/20 metFORMIN HCL ER [Glucophage XR] 1,000 mg PO W/SUPPER 02/04/19 01/26/20 Acetaminophen [Tylenol Extra 500 mg PO Q8H PRN 02/24/19 01/26/20 Strength] Albuterol Inhaler [Ventolin Hfa 1 puff PO Q6H PRN 02/24/19 01/26/20 Inhaler] Cholecalciferol [Vitamin D3 (25 5,000 unit PO DAILY 02/24/19 01/26/20 Mcg = 1000 Iu)] hydroCHLOROthiazide 50 mg PO QAM 02/27/19 01/26/20 Fluticasone Propion/Salmeterol 1 puff INHALATION BID 01/26/20 01/26/20 [Advair 500-50 Diskus] Meloxicam [Mobic] 7.5 mg PO DAILY 01/26/20 01/26/20 Sertraline [Zoloft] 50 mg PO QAM 01/26/20 01/26/20 busPIRone HCL [Buspar] 7.5 mg PO QAM 01/26/20 01/26/20 metFORMIN HCL [Glucophage] 1,000 mg PO W/BRKFST 01/26/20 01/26/20 Allergies Allergy/AdvReac Type Severity Reaction Status Date / Time levofloxacin [From Levaquin] AdvReac Confusion Verified 12/29/21 11:49 Review of Systems ROS Statement: Those systems with pertinent positive or pertinent negative responses have been documented in the HPI. ROS Other: All systems not noted in ROS Statement are negative. Past Medical History Past Medical History: Diabetes Mellitus, Deep Vein Thrombosis (DVT), Hypertension, Pneumonia, Sleep Apnea/CPAP/BIPAP, Syncope Additional Past Medical History / Comment(s): CURRENT ISSUE: FREQUENT UTI, LOWER ABD PAIN. REPORT OF COLONOSCOPY INIDCATES POSSIBLE COLOVESICAL FISTULA. DI VERTICULI. UTI that turned septic, LAST IN 2019. JAN 2019 HAD SYNCOPE, UNKNOWN REASON, HIT HEAD, SUTURES (ALL CARDIAC TESTING WAS NEGATIVE). Kidney stones. 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 History of Any Multi-Drug Resistant Organisms: None Reported Past Surgical History: Back Surgery, Cholecystectomy, Hysterectomy, Orthopedic Surgery, Tonsillectomy Additional Past Surgical History / Comment(s): Cartaract surgery. PLICATION OF DIAPHRAGM/ RIGHT LUNG. RIGHT TOTAL SHOULDER. BASKET EXTRACTION & LITHOTRIPSY. RIGHT FOOT SURGERY. Past Anesthesia/Blood Transfusion Reactions: Postoperative Nausea & Vomiting (PONV) Additional Past Anesthesia/Blood Transfusion Reaction / Comment(s): DAMAGE TO PHRENIC NERVE FROM BLOCK. Past Psychological History: Anxiety Smoking Status: Former smoker Past Alcohol Use History: None Reported Past Drug Use History: None Reported - Past Family History Son(s) Family Medical History: Cancer Additional Family Medical History / Comment(s): Bone and colon ca, son just 2018. Mother Additional Family Medical History / Comment(s): Heart just stopped, and at 70. Father Family Medical History: Cancer Additional Family Medical History / Comment(s): esophageal cancer General Exam General appearance: alert, in no apparent distress Head exam: Present: atraumatic, normocephalic, normal inspection Eye exam: Present: normal appearance, PERRL, EOMI. Absent: scleral icterus, conjunctival injection, periorbital swelling ENT exam: Present: normal exam, normal oropharynx, mucous membranes moist Neck exam: Present: normal inspection, full ROM. Absent: tenderness, meningismus, lymphadenopathy Respiratory exam: Present: wheezes. Absent: normal lung sounds bilaterally, respiratory distress, rales, rhonchi, stridor Cardiovascular Exam: Present: regular rate, normal rhythm, normal heart sounds. Absent: systolic murmur, diastolic murmur, rubs, gallop, clicks GI/Abdominal exam: Present: soft, normal bowel sounds. Absent: distended, tenderness, guarding, rebound, rigid Neurological exam: Present: alert Skin exam: Present: warm, dry, intact, normal color. Absent: rash Course Vital Signs 12/29/21 11:44 Temperature 100.0 F H Pulse Rate 91 Respiratory 18 Rate Blood Pressure 137/82 O2 Sat by Pulse 100 Oximetry Medical Decision Making - Medical Decision Making 76-year-old female presented for cough and cold like symptoms she is COVID-19 positive. Patient was set up for monoclonal antibodies tomorrow. Patient we discharged stable condition return parameters were discussed. - Lab Data Lab Results 12/29/21 Range/Units 11:58 Coronavirus (PCR) Detected A (Not Detectd) Disposition Clinical Impression: COVID-19 Disposition: HOME SELF-CARE Condition: Stable Instructions (If sedation given, give patient instructions): COVID-19 (Co ronavirus Disease 2019) (ED) Additional Instructions: Please return to the Emergency Department if symptoms worsen or any other concerns. Is patient prescribed a controlled substance at d/c from ED?: No Referrals: Romeo Hernandes MD [Primary Care Provider] - 1-2 days Time of Disposition: 12:48
--- NOTE | 2021-12-29 12:32 | XR ---
EXAMINATION TYPE: XR chest 2V DATE OF EXAM: 12/29/2021 COMPARISON: 02/27/2019 TECHNIQUE: PA and lateral views submitted. HISTORY: Cough FINDINGS: Elevated right hemidiaphragm correlate for phrenic nerve paresis. Subsegmental consolidation right [place] base may be related to compressive atelectasis from elevated hemidiaphragm. Hiatal hernia noted. L eft lung clear. Postsurgical change right shoulder. No pneumothorax or interstitial edema. Curvature of the spine. IMPRESSION: 1. Right hemidiaphragm elevation correlate for phrenic nerve paresis. Basilar consolidation could be on the basis of compressive atelectasis secondary to elevated hemidiaphragm. Correlate clinically to exclude infiltrate. 2. Moderate-sized hiatal hernia
== END 2021-12-29 12:57 | disposition home or self-care (01) ==
LOC: EC 11:43
DX: U07.1 COVID-19 (principal); E11.9 Type 2 diabetes mellitus without complications; I10 Essential (primary) hypertension; Z86.718 Personal history of other venous thrombosis and embolism; F41.9 Anxiety disorder, unspecified; Z87.891 Personal history of nicotine dependence; Z88.1 Allergy status to other antibiotic agents; Z79.899 Other long term (current) drug therapy
CPT/HCPCS: 71046; 87635; 99285

== ENCOUNTER → 2021-12-31 | Outpatient (CLI) | payer MEDICARE, BC ==
[~2021-12-31] MED LIST changes: +BEBTELOVIMAB (EUA) 175 MG/2 ML VIAL IV NR; -LACTATED RINGERS 1,000 ML IV SCH
[2021-12-31 14:12] VITALS: BP 138/82; PULSE 78; TEMP 99.2
== END ==
LOC: PROCWHC3 12:56
PROVIDERS: ATTEND Family Medicine
DX: U07.1 COVID-19 (principal); Z88.1 Allergy status to other antibiotic agents
CPT/HCPCS: Q0222; M0222

== ENCOUNTER → 2022-02-26 | Outpatient (CLI) | payer MEDICARE ==
--- NOTE | 2022-02-26 13:23 | XR ---
EXAMINATION TYPE: XR KUB DATE OF EXAM: 02/26/2022 COMPARISON: NONE HISTORY: Pain TECHNIQUE: One view abdominal series FINDINGS: The osseous structures are intact. The bowel gas pattern is nonspecific. Right upper quadrant calcif ication measuring 1 cm likely renal. Post cholecystostomy tube is noted. Scoliosis with severe multil evel degenerative disc disease. SI joint arthropathy. Bilateral hip arthropathy. IMPRESSION: 1. 1 cm right upper quadrant calcification likely related to the kidney
== END | disposition home or self-care (01) ==
LOC: RADXRMAIN 13:00
PROVIDERS: ATTEND Urology
DX: N28.89 Other specified disorders of kidney and ureter (principal)
CPT/HCPCS: 74018

== ENCOUNTER 2022-06-23 18:37 | Inpatient (IN) | payer MEDICARE, BC ==
[2022-06-23 20:36] LABS: Basophils # (A) 0.1 k/uL (0-0.2); Basophils % (A) 1 %; Eosinophils # (A) 0.3 k/uL (0-0.7); Eosinophils % (A) 4 %; HCT 42.7 % (34.0-46.0); HGB 14.9 gm/dL (11.4-16.0); Lymphocytes # (A) 1.3 k/uL (1.0-4.8); Lymphocytes % (A) 19 %; MCH 31.4 pg (25.0-35.0); MCHC 34.8 g/dL (31.0-37.0); MCV 90.1 fL (80.0-100.0); Mean Platelet Volume 14.4; Monocytes # (A) 0.5 k/uL (0-1.0); Monocytes % (A) 7 %; Neutrophils # (A) 4.6 k/uL (1.3-7.7); Neutrophils % (A) 66 %; RBC 4.74 m/uL (3.80-5.40)
[2022-06-23 20:40] LABS: Prothrombin Time 10.3 sec (9.0-12.0)
[2022-06-23 20:44] LABS: Albumin 4.3 g/dL (3.5-5.0); Calcium 9.4 mg/dL (8.4-10.2); Magnesium 1.1 mg/dL (1.6-2.3); Potassium 3.8 mmol/L (3.5-5.1); Total Bilirubin 0.7 mg/dL (0.2-1.3); Total Protein 6.8 g/dL (6.3-8.2)
[2022-06-23 21:04] LABS: Platelet Count 12 k/uL (150-450)
[2022-06-23 21:18] LABS: Appearance,Urine Clear (Clear); Bilirubin,Urine Negative (Negative); Blood,Urine Large (Negative); Color,Urine Yellow; Glucose,Urine (UA) Negative (Negative); Ketones,Urine Negative (Negative); Leukocyte Esterase,Urine Moderate (Negative); Mucus,Urine Rare /hpf; Nitrite,Urine Negative (Negative); PH, Urine 6.5 (5.0-8.0); Protein,Urine Trace (Negative); RBC,Urine >182 /hpf (0-5); Specific Gravity,Urine 1.017 (1.001-1.035); Squamous Epithelial Cell,Urine <1 /hpf (0-4); Urobilinogen,Urine <2.0 mg/dL (<2.0); WBC,Urine 72 /hpf (0-5)
--- NOTE | 2022-06-23 21:31 | ED ---
Recheck HPI - General Chief Complaint: Recheck/Abnormal Lab/Rx Stated Complaint: abn labs Time Seen by Provider: 06/23/22 20:05 Source: patient, RN notes reviewed Mode of arrival: ambulatory Limitations: no limitations - History of Present Illness Initial Comments: This is a 76-year-old female who presents to the emergency department for abnormal blood work. States that she has had problems with easy bruising, bleeding from small cuts, and nosebleeds, for the last 1-2 weeks. States that this has never been a problem for her before. Also denies any family history of bleeding problems. She saw her primary care provider today who subsequently ordered lab work. She had her blood work done at [facility], and received a call a couple of hours later stating that she had a platelet count of 9. She was subsequently instructed to come to the emergency department for further evaluation. States that she did have COVID in early to mid May shortly before the bleeding began. States that she does continue to feel somewhat weak with residual shortness of breath. She does also note that while at her PCP's office she was diagnosed with a UTI and started on Keflex. She's only taken one dose of the Keflex at this point. Denies any fevers, chills, sore throat, cough, chest pain, palpitations, abdominal pain, nausea, vomiting, diarrhea, back pain, or headaches. MD Complaint: abnormal lab Returns Today for: Called Because of Abnormal Lab/Test - Related Data Home Medications Medication Instructions Recorded Confirmed Metoprolol Tartrate [Lopressor] 100 mg PO BID 10/05/17 06/23/22 Zolpidem [Ambien] 10 mg PO HS 02/04/19 06/23/22 Albuterol Inhaler [Ventolin Hfa 2 puff INHALATION RT-Q6H PRN 02/24/19 06/23/22 Inhaler] hydroCHLOROthiazide 50 mg PO Q48H 02/27/19 06/23/22 Meloxicam [Mobic] 7.5 mg PO BID 01/26/20 06/23/22 Sertraline [Zoloft] 50 mg PO DAILY 01/26/20 06/23/22 busPIRone HCL [Buspar] 7.5 mg PO DAILY 01/26/20 06/23/22 Atorvastatin [Lipitor] 10 mg PO HS 06/23/22 06/23/22 Budesonide/Formoterol Fumarate 1 puff INHALATION RT-BID 06/23/22 06/23/22 [Symbicort 160-4.5 Mcg Inhaler] Cephalexin [Keflex] 500 mg PO Q12HR 06/23/22 06/23/22 Gabapentin 300 mg PO HS 06/23/22 06/23/22 Insulin Degludec [Tresiba] 16 units SQ DAILY 06/23/22 06/23/22 Montelukast [Singulair] 10 mg PO DAILY 06/23/22 06/23/22 Omeprazole 20 mg PO HS 06/23/22 06/23/22 Semaglutide [Ozempic] 1 mg SQ SA 06/23/22 06/23/22 Allergies Allergy/AdvReac Type Severity Reaction Status Date / Time doxycycline Allergy Dyspnea Verified 06/23/22 22:53 levofloxacin [From Levaquin] AdvReac Confusion Verified 06/23/22 22:53 Review of Systems ROS Statement: Those systems with pertinent positive or pertinent negative responses have been documented in the HPI. ROS Other: All systems not noted in ROS Statement are negative. Past Medical History Past Medical History: Diabetes Mellitus, Deep Vein Thrombosis (DVT), Hypertension, Pneumonia, Sleep Apnea/CPAP/BIPAP, Syncope Additional Past Medical History / Comment(s): CURRENT ISSUE: FREQUENT UTI, LOWER ABD PAIN. REPORT OF COLONOSCOPY INIDCATES POSSIBLE COLOVESICAL FISTULA. DIVERTICULI. UTI that turned septic, LAST IN 2019. JAN 2019 HAD SYNCOPE, UNKNOWN REASON, HIT HEAD, SUTURES (ALL CARDIAC TESTING WAS NEGATIVE). Kidney stones. 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 History of Any Multi-Drug Resistant Organisms: None Reported Past Surgical History: Back Surgery, Cholecystectomy, Hysterectomy, Orthopedic Surgery, Tonsillectomy Additional Past Surgical History / Comment(s): Cartaract surgery. PLICATION OF DIAPHRAGM/ RIGHT LUNG. RIGHT TOTAL SHOULDER. BASKET EXTRACTION & LITHOTRIPSY. RIGHT FOOT SURGERY. Past Anesthesia/Blood Transfusion Reactions: Postoperative Nausea & Vomiting (PONV) Additional Past Anesthesia/Blood Transfusion Reaction / Comment(s): DAMAGE TO PHRENIC NERVE FROM BLOCK. Past Psychological History: Anxiety Smoking Status: Former smoker Past Alcohol Use History: None Reported Past Drug Use History: None Reported - Past Family History Son(s) Family Medical History: Cancer Additional Family Medical History / Comment(s): Bone and colon ca, son just 2018. Mother Additional Family Medical History / Comment(s): Heart just stopped, and at 70. Father Family Medical History: Cancer Additional Family Medical History / Comment(s): esophageal cancer General Exam Limitations: no limitations General appearance: alert, in no apparent distress Head exam: Present: atraumatic, normocephalic, normal inspection Eye exam: Present: normal appearance, PERRL, EOMI. Absent: scleral icterus, conjunctival injection, periorbital swelling Respiratory exam: Present: normal lung sounds bilaterally. Absent: respiratory distress, wheezes, rales, rhonchi, stridor Cardiovascular Exam: Present: regular rate, normal rhythm, normal heart sounds. Absent: systolic murmur, diastolic murmur, rubs, gallop, clicks Neurological exam: Present: alert, oriented X3, CN II-XII intact Psychiatric exam: Present: normal affect, normal mood Skin exam: Present: other (Multiple areas of ecchymosis on the bilateral upper extremities.) Course Vital Signs 06/23/22 06/23/22 06/23/22 18:58 19:43 20:00 Temperature 98.9 F Pulse Rate 102 H 95 75 Respiratory 20 20 20 Rate Blood Pressure 162/102 173/105 150/106 O2 Sat by Pulse 95 96 98 Oximetry 06/23/22 06/24/22 22:08 00:16 Temperature 97.8 F Pulse Rate 85 99 Respiratory 16 16 Rate Blood Pressure 158/108 169/96 O2 Sat by Pulse 98 95 Oximetry Medical Decision Making - Medical Decision Making This is a 76-year-old female who presents to the emergency department for low platelet counts. Was pt. sent in by a medical professional or institution? @ -Yes, her PCP Did you speak to anyone other than the patient for history? @ -No Did you review nursing and triage notes? @ -Yes, and I agree, it is accurate with regards to the patient's symptoms. Were old charts reviewed? @ -No Differential Diagnosis? @ -Differential Low Platelets: ITP, TTP, HIT, DIC, HUS, this is not meant to be an all-inclusive list. X-rays interpreted by me (1pt min.)? @ -Chest x-ray obtained, my interpretation identifies no localized consolidations or infiltrates. What testing was considered but not performed? (CT, X-rays, U/S, labs)? Why? @ -None What meds were considered but not given? Why? @ -None Did you discuss the management of the patient with other professionals? @ -Yes, Dr. Tran, hem/onc, who advised Prednisone 20mg QID and no platelet transfusions. Dr. Hernandes then consulted who accepts the patient for admission to medicine. Did you reconcile home meds? @ -Yes Was smoking cessation discussed for >3mins.? @ -No Was critical care preformed (if so, how long)? @ -No Were there social determinants of health that impacted care today? How? (Homelessness, low income, unemployed, alcoholism, drug addiction, transpo rtation, low edu. Level, literacy, decrease access to med. care, fpc, rehab)? @ -No Was there de-escalation of care discussed even if they declined? (Discuss DNR or withdrawal of care, Hospice)? @ -No What co-morbidities impacted this encounter? (DM, HTN, Smoking, COPD, CAD, Cancer, CVA, Hep., AIDS, mental health diagnosis, sleep apnea, morbid obesity)? @ -DM, HTN Was patient admitted / discharged? @ -Admitted. Lab work repeated here reveals a platelet count of 12,000. Magnesium was also low at 1.1. Urinalysis consistent with a UTI. The fact that the bleeding started shortly after she recovered from COVID suggests a viral induced ITP. 4 g of magnesium sulfate administered for the hypomagnesemia. She was given a dose of ceftriaxone for the UTI. I spoke with Dr. Tran, hem/onc, who is agreeable to admission for the ITP, especially given her active bleeding. He advised prednisone 20 mg QID and instructed us to avoid any platelet transfusions. Patient admitted to medicine with hem/onc on consult. Undiagnosed new problem with uncertain prognosis? @ -None Drug Therapy requiring intensive monitoring for toxicity (Heparin, Nitro, Insulin, Cardizem)? @ -None Were any procedures done? @ -None Diagnosis/symptom? @ -ITP Acute, or Chronic, or Acute on Chronic? @ -Acute Uncomplicated (without systemic symptoms) or Complicated (systemic symptoms)? @ -Complicated Side effects of treatment? @ -None Exacerbation, Progression, or Severe Exacerbation] @ -Not applicable Poses a threat to life or bodily function? @ -Yes Diagnosis/symptom? @ -Hypomagnesemia Acute, or Chronic, or Acute on Chronic? @ -Acute Uncomplicated (without systemic symptoms) or Complicated (systemic symptoms)? @ -Complicated Side effects of treatment? @ -None Exacerbation, Progression, or Severe Exacerbation] @ -Not applicable Poses a threat to life or bodily function? @ -Yes Diagnosis/symptom? @ -UTI Acute, or Chronic, or Acute on Chronic? @ -Acute Uncomplicated (without systemic symptoms) or Complicated (systemic symptoms)? @ -Uncomplicated Side effects of treatment? @ -None Exacerbation, Progression, or Severe Exacerbation] @ -Not applicable Poses a threat to life or bodily function? @ -No This case was discussed in detail with the attending ED physician, Dr. Joyce. Presentation, findings, and treatment plan discussed in detail as well. - Lab Data Result diagrams: 06/23/22 19:30 06/23/22 19:30 Lab Results 06/23/22 06/23/22 06/23/22 Range/Units 19:30 19:30 19:30 WBC 7.0 (3.8-10.6) k/uL RBC 4.74 (3.80-5.40) m/uL Hgb 14.9 (11.4-16.0) gm/dL Hct 42.7 (34.0-46.0) % MCV 90.1 (80.0-100.0) fL MCH 31.4 (25.0-35.0) pg MCHC 34.8 (31.0-37.0) g/dL RDW 13.0 (11.5-15.5) % Plt Count 12 L* (150-450) k/uL MPV 14.4 Neutrophils % 66 % Lymphocytes % 19 % Monocytes % 7 % Eosinophils % 4 % Basophils % 1 % Neutrophils # 4.6 (1.3-7.7) k/uL Lymphocytes # 1.3 (1.0-4.8) k/uL Monocytes # 0.5 (0-1.0) k/uL Eosinophils # 0.3 (0-0.7) k/uL Basophils # 0.1 (0-0.2) k/uL PT 10.3 (9.0-12.0) sec INR 1.0 (<1.2) APTT 24.0 (22.0-30.0) sec Sodium 137 (137-145) mmol/L Potassium 3.8 (3.5-5.1) mmol/L Chloride 100 (98-107) mmol/L Carbon Dioxide 28 (22-30) mmol/L Anion Gap 9 mmol/L BUN 25 H (7-17) mg/dL Creatinine 0.82 (0.52-1.04) mg/dL Est GFR (CKD-EPI)AfAm 81 (>60 ml/min/1.73 sqM) Est GFR (CKD-EPI)NonAf 70 (>60 ml/min/1.73 sqM) Glucose 186 H (74-99) mg/dL Lactic Ac Sepsis Rflx Plasma Lactic Acid Judson (0.7-2.0) mmol/L Calcium 9.4 (8.4-10.2) mg/dL Phosphorus (2.5-4.5) mg/dL Magnesium 1.1 L (1.6-2.3) mg/dL Total Bilirubin 0.7 (0.2-1.3) mg/dL AST 25 (14-36) U/L ALT 26 (4-34) U/L Alkaline Phosphatase 63 (38-126) U/L Troponin I (0.000-0.034) ng/mL Total Protein 6.8 (6.3-8.2) g/dL Albumin 4.3 (3.5-5.0) g/dL Urine Color Urine Appearance (Clear) Urine pH (5.0-8.0) Ur Specific [place] (1.001-1.035) Urine Protein (Negative) Urine Glucose (UA) (Negative) Urine Ketones (Negative) Urine Blood (Negative) Urine Nitrite (Negative) Urine Bilirubin (Negative) Urine Urobilinogen (<2.0) mg/dL Ur Leukocyte Esterase (Negative) Urine RBC (0-5) /hpf Urine WBC (0-5) /hpf Ur Squamous Epith Cells (0-4) /hpf Urine Mucus (None) /hpf Heterophile Antibody (Negative) Influenza Type A (PCR) (Not Detectd) Influenza Type B (PCR) (Not Detectd) RSV (PCR) (Not Detectd) SARS-CoV-2 (PCR) (Not Detectd) Blood Type Blood Type Recheck Bld Type Recheck Status Antibody Screen Spec Expiration Date 06/23/22 06/23/22 06/23/22 Range/Units 19:30 19:30 19:30 WBC (3.8-10.6) k/uL RBC (3.80-5.40) m/uL Hgb (11.4-16.0) gm/dL Hct (34.0-46.0) % MCV (80.0-100.0) fL MCH (25.0-35.0) pg MCHC (31.0-37.0) g/dL RDW (11.5-15.5) % Plt Count (150-450) k/uL MPV Neutrophils % % Lymphocytes % % Monocytes % % Eosinophils % % Basophils % % Neutrophils # (1.3-7.7) k/uL Lymphocytes # (1.0-4.8) k/uL Monocytes # (0-1.0) k/uL Eosinophils # (0-0.7) k/uL Basophils # (0-0.2) k/uL PT (9.0-12.0) sec INR (<1.2) APTT (22.0-30.0) sec Sodium (137-145) mmol/L Potassium (3.5-5.1) mmol/L Chloride (98-107) mmol/L Carbon Dioxide (22-30) mmol/L Anion Gap mmol/L BUN (7-17) mg/dL Creatinine (0.52-1.04) mg/dL Est GFR (CKD-EPI)AfAm (>60 ml/min/1.73 sqM) Est GFR (CKD-EPI)NonAf (>60 ml/min/1.73 sqM) Glucose (74-99) mg/dL Lactic Ac Sepsis Rflx Plasma Lactic Acid Judson 2.1 H* (0.7-2.0) mmol/L Calcium (8.4-10.2) mg/dL Phosphorus (2.5-4.5) mg/dL Magnesium (1.6-2.3) mg/dL Total Bilirubin (0.2-1.3) mg/dL AST (14-36) U/L ALT (4-34) U/L Alkaline Phosphatase (38-126) U/L Troponin I <0.012 (0.000-0.034) ng/mL Total Protein (6.3-8.2) g/dL Albumin (3.5-5.0) g/dL Urine Color Urine Appearance (Clear) Urine pH (5.0-8.0) Ur Specific [place] (1.001-1.035) Urine Protein (Negative) Urine Glucose (UA) (Negative) Urine Ketones (Negative) Urine Blood (Negative) Urine Nitrite (Negative) Urine Bilirubin (Negative) Urine Urobilinogen (<2.0) mg/dL Ur Leukocyte Esterase (Negative) Urine RBC (0-5) /hpf Urine WBC (0-5) /hpf Ur Squamous Epith Cells (0-4) /hpf Urine Mucus (None) /hpf Heterophile Antibody (Negative) Influenza Type A (PCR) (Not Detectd) Influenza Type B (PCR) (Not Detectd) RSV (PCR) (Not Detectd) SARS-CoV-2 (PCR) (Not Detectd) Blood Type O Negative Blood Type Recheck O Neg Bld Type Recheck Status No Antibody Screen NEGATIVE Spec Expiration Date 06/26/2022 - 232906/23/22 06/23/22 06/23/22 Range/Units 19:30 19:30 20:44 WBC (3.8-10.6) k/uL RBC (3.80-5.40) m/uL Hgb (11.4-16.0) gm/dL Hct (34.0-46.0) % MCV (80.0-100.0) fL MCH (25.0-35.0) pg MCHC (31.0-37.0) g/dL RDW (11.5-15.5) % Plt Count (150-450) k/uL MPV Neutrophils % % Lymphocytes % % Monocytes % % Eosinophils % % Basophils % % Neutrophils # (1.3-7.7) k/uL Lymphocytes # (1.0-4.8) k/uL Monocytes # (0-1.0) k/uL Eosinophils # (0-0.7) k/uL Basophils # (0-0.2) k/uL PT (9.0-12.0) sec INR (<1.2) APTT (22.0-30.0) sec Sodium (137-145) mmol/L Potassium (3.5-5.1) mmol/L Chloride (98-107) mmol/L Carbon Dioxide (22-30) mmol/L Anion Gap mmol/L BUN (7-17) mg/dL Creatinine (0.52-1.04) mg/dL Est GFR (CKD-EPI)AfAm (>60 ml/min/1.73 sqM) Est GFR (CKD-EPI)NonAf (>60 ml/min/1.73 sqM) Glucose (74-99) mg/dL Lactic Ac Sepsis Rflx Plasma Lactic Acid [place] (0.7-2.0) mmol/L Calcium (8.4-10.2) mg/dL Phosphorus 3.7 (2.5-4.5) mg/dL Magnesium (1.6-2.3) mg/dL Total Bilirubin (0.2-1.3) mg/dL AST (14-36) U/L ALT (4-34) U/L Alkaline Phosphatase (38-126) U/L Troponin I (0.000-0.034) ng/mL Total Protein (6.3-8.2) g/dL Albumin (3.5-5.0) g/dL Urine Color Urine Appearance (Clear) Urine pH (5.0-8.0) Ur Specific [place] (1.001-1.035) Urine Protein (Negative) Urine Glucose (UA) (Negative) Urine Ketones (Negative) Urine Blood (Negative) Urine Nitrite (Negative) Urine Bilirubin (Negative) Urine Urobilinogen (<2.0) mg/dL Ur Leukocyte Esterase (Negative) Urine RBC (0-5) /hpf Urine WBC (0-5) /hpf Ur Squamous Epith Cells (0-4) /hpf Urine Mucus (None) /hpf Heterophile Antibody Negative (Negative) Influenza Type A (PCR) Not Detected (Not Detectd) Influenza Type B (PCR) Not Detected (Not Detectd) RSV (PCR) Not Detected (Not Detectd) SARS-CoV-2 (PCR) Not Detected (Not Detectd) Blood Type Blood Type Recheck Bld Type Recheck Status Antibody Screen Spec Expiration Date 06/23/22 06/23/22 Range/Units 20:44 20:56 WBC (3.8-10.6) k/uL RBC (3.80-5.40) m/uL Hgb (11.4-16.0) gm/dL Hct (34.0-46.0) % MCV (80.0-100.0) fL MCH (25.0-35.0) pg MCHC (31.0-37.0) g/dL RDW (11.5-15.5) % Plt Count (150-450) k/uL MPV Neutrophils % % Lymphocytes % % Monocytes % % Eosinophils % % Basophils % % Neutrophils # (1.3-7.7) k/uL Lymphocytes # (1.0-4.8) k/uL Monocytes # (0-1.0) k/uL Eosinophils # (0-0.7) k/uL Basophils # (0-0.2) k/uL PT (9.0-12.0) sec INR (<1.2) APTT (22.0-30.0) sec Sodium (137-145) mmol/L Potassium (3.5-5.1) mmol/L Chloride (98-107) mmol/L Carbon Dioxide (22-30) mmol/L Anion Gap mmol/L BUN (7-17) mg/dL Creatinine (0.52-1.04) mg/dL Est GFR (CKD-EPI)AfAm (>60 ml/min/1.73 sqM) Est GFR (CKD-EPI)NonAf (>60 ml/min/1.73 sqM) Glucose (74-99) mg/dL Lactic Ac Sepsis Rflx Y Plasma Lactic Acid [place] (0.7-2.0) mmol/L Calcium (8.4-10.2) mg/dL Phosphorus (2.5-4.5) mg/dL Magnesium (1.6-2.3) mg/dL Total Bilirubin (0.2-1.3) mg/dL AST (14-36) U/L ALT (4-34) U/L Alkaline Phosphatase (38-126) U/L Troponin I (0.000-0.034) ng/mL Total Protein (6.3-8.2) g/dL Albumin (3.5-5.0) g/dL Urine Color Yellow Urine Appearance Clear (Clear) Urine pH 6.5 (5.0-8.0) Ur Specific [place] 1.017 (1.001-1.035) Urine Protein Trace H (Negative) Urine Glucose (UA) Negative (Negative) Urine Ketones Negative (Negative) Urine Blood Large H (Negative) Urine Nitrite Negative (Negative) Urine Bilirubin Negative (Negative) Urine Urobilinogen <2.0 (<2.0) mg/dL Ur Leukocyte Esterase Moderate H (Negative) Urine RBC >182 H (0-5) /hpf Urine WBC 72 H (0-5) /hpf Ur Squamous Epith Cells <1 (0-4) /hpf Urine Mucus Rare H (None) /hpf Heterophile Antibody (Negative) Influenza Type A (PCR) (Not Detectd) Influenza Type B (PCR) (Not Detectd) RSV (PCR) (Not Detectd) SARS-CoV-2 (PCR) (Not Detectd) Blood Type Blood Type Recheck Bld Type Recheck Status Antibody Screen Spec Expiration Date - Radiology Data Radiology results: report reviewed, image reviewed Disposition Clinical Impression: Acute ITP, Hypomagnesemia, UTI (urinary tract infection) Disposition: ADMITTED IP TO THIS HOSP
--- NOTE | 2022-06-23 21:38 | XR ---
EXAMINATION TYPE: XR chest 2V DATE OF EXAM: 06/23/2022 COMPARISON: 12/29/2021 HISTORY: Shortness of breath TECHNIQUE: Frontal and lateral views of the chest are obtained. FINDINGS: Scattered senescent parenchymal changes noted. No evidence for infiltrate. No evidence for atelectasis. Heart size is stable. Mediastinal structures are stable and grossly unremarkable. No evidence for hilar prominence. Degenerative changes dorsal spine. IMPRESSION: 1. No evidence for acute pulmonary disease.
[2022-06-23] MEDS ORDERED: predniSONE 20 MG TAB PO SCH (22:00)
[2022-06-23] MEDS ORDERED: NALOXONE 0.4 MG/ML 1 ML VIAL IV PRN (22:05)
[2022-06-23] MEDS ORDERED: ONDANSETRON 4 MG/2 ML VIAL IVP PRN (22:05)
[2022-06-23] MEDS ORDERED: ZOLPIDEM 5 MG TAB PO SCH (23:00)
[2022-06-23] MEDS ORDERED: cefTRIAXone IN SWFI 1,000 MG/10 ML SYRINGE IVP STA (23:57)
[2022-06-24] MEDS: MAGNESIUM SULFATE-D5W PMX 1 GM in DEXTROSE/WATER 1 100ML.BAG IVPB SCH ×4 (00:20→03:22)
[2022-06-24] MEDS ORDERED: METOPROLOL TARTRATE 50 MG TAB PO STA (00:25)
[2022-06-24] MEDS: ACETAMINOPHEN TAB 325 MG TAB PO PRN (00:28)
[2022-06-24 05:55] LABS: Basophils % (A) 0 %; Eosinophils % (A) 0 %; HCT 42.5 % (34.0-46.0); HGB 14.5 gm/dL (11.4-16.0); Lymphocytes # (A) 0.6 k/uL (1.0-4.8); Lymphocytes % (A) 9 %; MCH 31.5 pg (25.0-35.0); MCV 92.5 fL (80.0-100.0); Mean Platelet Volume 13.3; Monocytes # (A) 0.2 k/uL (0-1.0); Monocytes % (A) 4 %; Neutrophils # (A) 5.7 k/uL (1.3-7.7); Neutrophils % (A) 86 %; WBC 6.7 k/uL (3.8-10.6)
[2022-06-24 05:56] LABS: Platelet Count 11 k/uL (150-450)
[2022-06-24 06:00] LABS: Albumin 3.8 g/dL (3.5-5.0); Calcium 8.6 mg/dL (8.4-10.2); Potassium 4.4 mmol/L (3.5-5.1); Total Bilirubin 0.6 mg/dL (0.2-1.3); Total Protein 6.3 g/dL (6.3-8.2)
[2022-06-24] MEDS: SYMBICORT 160-4.5 MCG INHALER INHALATION SCH (07:30)
[2022-06-24] MEDS: MELOXICAM 7.5 MG TAB PO SCH ×2 (08:29→21:00)
[2022-06-24] MEDS: MONTELUKAST 10 MG TAB PO SCH (08:30)
[2022-06-24] MEDS: METOPROLOL TARTRATE 50 MG TAB PO SCH ×2 (08:30→21:00)
[2022-06-24] MEDS: SERTRALINE 50 MG TAB PO SCH (08:30)
[2022-06-24] MEDS: busPIRone HCl 5 MG TAB PO SCH (08:30)
[2022-06-24] MEDS: HYDROcodone/APAP 5-325MG 1 EACH TAB PO PRN (09:40)
[2022-06-24] MEDS: predniSONE 20 MG TAB PO SCH ×2 (09:40→11:17)
[2022-06-24] MEDS ORDERED: DEXTROSE 50% SYRINGE 50 ML IVP PRN ×2 (09:53)
[2022-06-24] MEDS: methylPREDNISolone SOD SUCCI 40 MG/ML 1 ML VIAL IV SCH ×2 (11:19→17:55)
--- NOTE | 2022-06-24 11:33 | P.HPIM ---
History of Present Illness H&P Date: 06/24/22 Chief Complaint: recent covid-s/p boosters,Decr. plts/nosebleeds, easy bruising This is a 76-year-old female with past medical history of hypertension, diabetes, sleep apnea/CPAP/ BiPAP,syncope, renal calculi, phrenic nerve injury, former nicotine dependence, DVT, recent covid approximately 2-3 weeks ago, shortly thereafter developed frequent nosebleeds, easy bruising accompanied by fatigue and mild shortness of breath. Reported fluctuating left flank tenderness/throbbing. States arms bruising easily just from having strap of her purse hanging on her forearm. Proceeded to PCP yesterday, diagnosed with acute UTI and started on Keflex-patient has taken 1 dose prior to admission. Reports hematuria. Labs drawn yesterday at [facility], patient reports c alled by PCP , reporting platelets of 9 and instructed to go to the ER. On admission, hemoglobin 14.9, platelets 12, PT 10.3, INR 1. Chest x-ray reporting no evidence for acute pulmonary disease. Afebrile, normal WBC, lactic acid 2.1. Sodium 137, potassium 3.8, bicarb 28, BUN 25, creatinine 0.82, glucose 186, magnesium 1.1. UA reporting 72 urine wbc's, moderate leukocytes, negative nitrates. Urine culture pending. Heterophile antibody negative. Influenza type a, type B, RSV and Covid not detected. Antibiotics, steroids initiated, received magnesium supplementation. Wnjfforqchzfu-pmjfaqg-tvzsldi, lactic acid now down to 1.2. Review of Systems ROS Statement: Those systems with pertinent positive or pertinent negative responses have been documented in the HPI. ROS Other: All systems not noted in ROS Statement are negative. Past Medical History Past Medical History: Diabetes Mellitus, Deep Vein Thrombosis (DVT), Hypertension, Pneumonia, Sleep Apnea/CPAP/BIPAP, Syncope Additional Past Medical History / Comment(s): CURRENT ISSUE: FREQUENT UTI, LOWER ABD PAIN. REPORT OF COLONOSCOPY INIDCATES POSSIBLE COLOVESICAL FISTULA. DIVERTICULI. UTI that turned septic, LAST IN 2019. JAN 2019 HAD SYNCOPE, UNKNOWN REASON, HIT HEAD, SUTURES (ALL CARDIAC TESTING WAS NEGATIVE). Kidney stones. 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 History of Any Multi-Drug Resistant Organisms: None Reported Past Surgical History: Back Surgery, Cholecystectomy, Hysterectomy, Orthopedic Surgery, Tonsillectomy Additional Past Surgical History / Comment(s): Cartaract surgery. PLICATION OF DIAPHRAGM/ RIGHT LUNG. RIGHT TOTAL SHOULDER. BASKET EXTRACTION & LITHOTRIPSY. RIGHT FOOT SURGERY. Past Anesthesia/Blood Transfusion Reactions: Postoperative Nausea & Vomiting (PONV) Additional Past Anesthesia/Blood Transfusion Reaction / Comment(s): DAMAGE TO PHRENIC NERVE FROM BLOCK. Past Psychological History: Anxiety Smoking Status: Former smoker Past Alcohol Use History: None Reported Past Drug Use History: None Reported - Past Family History Son(s) Family Medical History: Cancer Additional Family Medical History / Comment(s): Bone and colon ca, son just 2018. Mother Additional Family Medical History / Comment(s): Heart just stopped, and at 70. Father Family Medical History: Cancer Additional Family Medical History / Comment(s): esophageal cancer Medications and Allergies Home Medications Medication Instructions Recorded Confirmed Type Metoprolol Tartrate [Lopressor] 100 mg PO BID 10/05/17 06/23/22 History Zolpidem [Ambien] 10 mg PO HS 02/04/19 06/23/22 History Albuterol Inhaler [Ventolin Hfa 2 puff INHALATION RT-Q6H PRN 02/24/19 06/23/22 History Inhaler] hydroCHLOROthiazide 50 mg PO Q48H 02/27/19 06/23/22 History Meloxicam [Mobic] 7.5 mg PO BID 01/26/20 06/23/22 History Sertraline [Zoloft] 50 mg PO DAILY 01/26/20 06/23/22 History busPIRone HCL [Buspar] 7.5 mg PO DAILY 01/26/20 06/23/22 History Atorvastatin [Lipitor] 10 mg PO HS 06/23/22 06/23/22 History Budesonide/Formoterol Fumarate 1 puff INHALATION RT-BID 06/23/22 06/23/22 History [Symbicort 160-4.5 Mcg Inhaler] Cephalexin [Keflex] 500 mg PO Q12HR 06/23/22 06/23/22 History Gabapentin 300 mg PO HS 06/23/22 06/23/22 History Insulin Degludec [Tresiba] 16 units SQ DAILY 06/23/22 06/23/22 History Montelukast [Singulair] 10 mg PO DAILY 06/23/22 06/23/22 History Omeprazole 20 mg PO HS 06/23/22 06/23/22 History Semaglutide [Ozempic] 1 mg SQ SA 06/23/22 06/23/22 History Allergies Allergy/AdvReac Type Severity Reaction Status Date / Time doxycycline Allergy Dyspnea Verified 06/23/22 22:53 levofloxacin [From Levaquin] AdvReac Confusion Verified 06/23/22 22:53 Physical Exam Vitals: Vital Signs Temp Pulse Pulse Resp BP BP Pulse Ox 06/24/22 07:39 97.8 F 94 18 153/89 93 L 06/24/22 05:00 16 06/24/22 00:16 97.8 F 99 16 169/96 95 06/23/22 22:08 85 16 158/108 98 06/23/22 20:00 75 20 150/106 98 06/23/22 19:43 95 20 173/105 96 06/23/22 18:58 98.9 F 102 H 20 162/102 95 Intake and Output 06/23/22 06/24/22 06/24/22 22:59 06:59 14:59 Other: Voiding Method Toilet Weight 78.471 kg PHYSICAL EXAM: VITAL SIGNS: As above GENERAL: Sitting up in bed, no acute distress HEENT: Conjunctivae normal. eyes normal. NECK: Supple, No JVD. No thyroid enlargement. No LNs CARDIOVASCULAR: S1, S2 regular.No murmur RESPIRATION: Breath sounds diminished in the bases. No rhonchi or crackles. No bronchial breathing. ABDOMEN: Soft, nondistended, left flank tenderness ,No guarding. no masses palpable. No ascites, No hepatosplenomegaly.Bowel sounds heard. LEGS: No edema. no swelling PSYCHIATRY: Alert and oriented X3, mood and affect normal. NERVOUS SYSTEM: Cranial N 2-12 grossly normal. Moves all 4 limbs. Diffuse weakness No focal deficits. Strength and sensation grossly intact.. Skin: Multiple areas of ecchymosis , warm and dry Results CBC & Chem 7: 06/24/22 05:30 06/24/22 05:30 Labs: Abnormal Lab Results - Last 24 Hours (Table) 06/23/22 06/23/22 06/23/22 Range/Units 19:30 19:30 19:30 Plt Count 12 L* (150-450) k/uL Lymphocytes # (1.0-4.8) k/uL Sodium (137-145) mmol/L Chloride (98-107) mmol/L BUN 25 H (7-17) mg/dL Glucose 186 H (74-99) mg/dL Plasma Lactic Acid Judson 2.1 H* (0.7-2.0) mmol/L Magnesium 1.1 L (1.6-2.3) mg/dL Urine Protein (Negative) Urine Blood (Negative) Ur Leukocyte Esterase (Negative) Urine RBC (0-5) /hpf Urine WBC (0-5) /hpf Urine Mucus (None) /hpf 06/23/22 06/24/22 06/24/22 Range/Units 20:44 05:30 05:30 Plt Count 11 L* (150-450) k/uL Lymphocytes # 0.6 L (1.0-4.8) k/uL Sodium 133 L (137-145) mmol/L Chloride 97 L (98-107) mmol/L BUN 21 H (7-17) mg/dL Glucose 363 H (74-99) mg/dL Plasma Lactic Acid Judson (0.7-2.0) mmol/L Magnesium (1.6-2.3) mg/dL Urine Protein Trace H (Negative) Urine Blood Large H (Negative) Ur Leukocyte Esterase Moderate H (Negative) Urine RBC >182 H (0-5) /hpf Urine WBC 72 H (0-5) /hpf Urine Mucus Rare H (None) /hpf Assessment and Plan Assessment: Thrombocytopenia, 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 Hypomagnesemia Acute UTI, on Keflex per PCP as of yesterday. History of DVT Diabetes mellitus, A1c pending Hypertension Sleep apnea, uses CPAP, BiPAP Former nicotine dependence Anxiety Plan: Continue on current medication regime ,monitoring and symptomatic treatment. Repeat Magnesium level ordered .Patient states unable to tolerate oral steroids, convert to IV push.long-acting insulin plus Insulin Sliding scale ordered, close monitoring of Accu-Cheks. ONC/Hematology consult in place, further recommendations to follow. Complains of left flank tenderness, renal ultrasound ordered. Follow-up magnesium level ordered, pending. Close monitoring of coags with repeat labs ordered for a.m. PPI in place for GI pro phylaxis. The impression and plan of care has been dictated as directed. : I performed a history and examination of this patient, discussed the same with the dictator. I agree with the dictator's note ,documented as a scribe. Any additional findings or plans will be noted.
--- NOTE | 2022-06-24 11:34 | US ---
EXAMINATION TYPE: US renals and bladder DATE OF EXAM: 06/24/2022 COMPARISON: NONE CLINICAL HISTORY: left flank pain. Left flank pain had lithotripsy in 01/2022 platelets EXAM MEASUREMENTS: Right Kidney: 10 x 4.6 x 4.5 cm Left Kidney: 9.1 x 5.1 x 4.0 cm Right Kidney: Stone visualized lower pole 1.2 cm. No evidence of hydronephrosis. Left Kidney: Multiple echogenic areas visualized largest 1.2 cm hypoechoic area lower pole 1.6 x 1.9 x 1.8 cm. No evidence of hydronephrosis. Bladder: Not full Bilateral Jets seen: no There is no evidence for hydronephrosis at this point in time. IMPRESSION: 1. No evidence of [place] nephrosis. 2. Bilateral renal calculi.
[2022-06-24 12:25] LABS: Glucose,Whole Blood 239 mg/dL (70-110)
[2022-06-24] MEDS: INSULIN DETEMIR (LEVEMIR) 100 UNIT/ML SYR SQ SCH (12:25)
[2022-06-24] MEDS: INSULIN ASPART (NovoLOG) 100 UNIT/ML VIAL SQ SCH ×3 (12:34→21:01)
[2022-06-24] MEDS: lisinopriL 10 MG TAB PO SCH (16:40)
[2022-06-24 17:21] LABS: Glucose,Whole Blood 296 mg/dL (70-110)
--- NOTE | 2022-06-24 19:10 | P.CONS ---
History of Present Illness - Reason for Consult Consult date: 06/24/22 ITP Requesting physician: Albertina Garcia - Chief Complaint easy bruising - History of Present Illness Mrs. Crowder is a pleasant 76-year-old female who presents to the ER with c/o bleeding and easy bruising for 1-2 weeks. She has had epistaxis, gum bleeding, had a blood blister on her tongue that broke open and bled x 1, she had hematuria, purpura, excessive bleeding from minor cuts. She states that this has never been a problem for her before, no hematological Hx, no family history of bleeding problems. She saw her PCP today who ordered lab work. Labs done at [facility], received a call a couple of hours later stating that she had a platelet count of 9. She was instructed to come to the ER for further evaluation and work up. States that she did have COVID in early to mid May shortly before the bleeding began. States that she does continue to feel somewhat weak with residual shortness of breath. She does also note that while at her PCP's office she was diagnosed with a UTI and started on Keflex. She's only taken one dose of the Keflex at this point. Review of Systems 10 point ROS is neg except as stated in HPI Past Medical History Past Medical History: Diabetes Mellitus, Deep Vein Thrombosis (DVT), Hypertension, Pneumonia, Sleep Apnea/CPAP/BIPAP, Syncope Additional Past Medical History / Comment(s): CURRENT ISSUE: FREQUENT UTI, LOWER ABD PAIN. REPORT OF COLONOSCOPY INIDCATES POSSIBLE COLOVESICAL FISTULA. DIVERTICULI. UTI that turned septic, LAST IN 2019. JAN 2019 HAD SYNCOPE, UNKNOWN REASON, HIT HEAD, SUTURES (ALL CARDIAC TESTING WAS NEGATIVE). Kidney stones. PHRENIC NERVE INJURY ON RIGHT, PARALYZED RIGHT LOWER LOBE LUNG, POST AX ILLARY BLOCK.. History of Any Multi-Drug Resistant Organisms: None Reported Past Surgical History: Back Surgery, Cholecystectomy, Hysterectomy, Orthopedic Surgery, Tonsillectomy Additional Past Surgical History / Comment(s): Cartaract surgery. PLICATION OF DIAPHRAGM/ RIGHT LUNG. RIGHT TOTAL SHOULDER. BASKET EXTRACTION & LITHOTRIPSY. RIGHT FOOT SURGERY. Past Anesthesia/Blood Transfusion Reactions: Postoperative Nausea & Vomiting (PONV) Additional Past Anesthesia/Blood Transfusion Reaction / Comm: DAMAGE TO PHRENIC NERVE FROM BLOCK. Past Psychological History: Anxiety Smoking Status: Former smoker Past Alcohol Use History: None Reported Past Drug Use History: None Reported - Past Family History Son(s) Family Medical History: Cancer Additional Family Medical History / Comment(s): Bone and colon ca, son just 2018. Mother Additional Family Medical History / Comment(s): Heart just stopped, and at 70. Father Family Medical History: Cancer Additional Family Medical History / Comment(s): esophageal cancer Medications and Allergies Home Medications Medication Instructions Recorded Confirmed Type Metoprolol Tartrate [Lopressor] 100 mg PO BID 10/05/17 06/23/22 History Zolpidem [Ambien] 10 mg PO HS 02/04/19 06/23/22 History Albuterol Inhaler [Ventolin Hfa 2 puff INHALATION RT-Q6H PRN 02/24/19 06/23/22 History Inhaler] hydroCHLOROthiazide 50 mg PO Q48H 02/27/19 06/23/22 History Meloxicam [Mobic] 7.5 mg PO BID 01/26/20 06/23/22 History Sertraline [Zoloft] 50 mg PO DAILY 01/26/20 06/23/22 History busPIRone HCL [Buspar] 7.5 mg PO DAILY 01/26/20 06/23/22 History Atorvastatin [Lipitor] 10 mg PO HS 06/23/22 06/23/22 History Budesonide/Formoterol Fumarate 1 puff INHALATION RT-BID 06/23/22 06/23/22 Hi story [Symbicort 160-4.5 Mcg Inhaler] Cephalexin [Keflex] 500 mg PO Q12HR 06/23/22 06/23/22 History Gabapentin 300 mg PO HS 06/23/22 06/23/22 History Insulin Degludec [Tresiba] 16 units SQ DAILY 06/23/22 06/23/22 History Montelukast [Singulair] 10 mg PO DAILY 06/23/22 06/23/22 History Omeprazole 20 mg PO HS 06/23/22 06/23/22 History Semaglutide [Ozempic] 1 mg SQ SA 06/23/22 06/23/22 History Allergies Allergy/AdvReac Type Severity Reaction Status Date / Time doxycycline Allergy Dyspnea Verified 06/23/22 22:53 levofloxacin [From Levaquin] AdvReac Confusion Verified 06/23/22 22:53 Physical Exam Vitals: Vital Signs Temp Pulse Pulse Resp BP BP Pulse Ox 06/24/22 07:39 97.8 F 94 18 153/89 93 L 06/24/22 05:00 16 06/24/22 00:16 97.8 F 99 16 169/96 95 06/23/22 22:08 85 16 158/108 98 06/23/22 20:00 75 20 150/106 98 06/23/22 19:43 95 20 173/105 96 06/23/22 18:58 98.9 F 102 H 20 162/102 95 Intake and Output 06/23/22 06/24/22 06/24/22 22:59 06:59 14:59 Other: Voiding Method Toilet Weight 78.471 kg - Constitutional General appearance: average body habitus, cooperative, no acute distress - EENT Eyes: anicteric sclerae, EOMI ENT: hearing grossly normal, normal oropharynx - Respiratory Respiratory: bilateral: CTA - Cardiovascular Rhythm: regular Heart sounds: normal: S1, S2 Abnormal Heart Sounds: no systolic murmur, no diastolic murmur, no rub, no S3 Gallop, no S4 Gallop, no click, no other leg Peripheral Edema: bilateral: None - Gastrointestinal General gastrointestinal: no absent bowel sounds, no decreased bowel sounds, no distended, no hepatomegaly, no hyperactive bowel sounds, normal bowel sounds, no organomegaly, no rigid, no scaphoid, soft, no splenomegaly, no tenderness, no umbilical hernia, no ventral hernia - Integumentary Purpura and petechiae on extremities - Neurologic Neurologic: CNII-XII intact - Musculoskeletal Musculoskeletal: strength equal bilaterally - Psychiatric Psychiatric: A&O x's 3, appropriate affect, intact judgment & insight Results CBC & Chem 7: 06/24/22 05:30 06/24/22 05:30 Labs: Abnormal Lab Results - Last 24 Hours (Table) 06/23/22 06/23/22 06/23/22 Range/Units 19:30 19:30 19:30 Plt Count 12 L* (150-450) k/uL Lymphocytes # (1.0-4.8) k/uL Sodium (137-145) mmol/L Chloride (98-107) mmol/L BUN 25 H (7-17) mg/dL Glucose 186 H (74-99) mg/dL Plasma Lactic Acid Judson 2.1 H* (0.7-2.0) mmol/L Magnesium 1.1 L (1.6-2.3) mg/dL Urine Protein (Negative) Urine Blood (Negative) Ur Leukocyte Esterase (Negative) Urine RBC (0-5) /hpf Urine WBC (0-5) /hpf Urine Mucus (None) /hpf 06/23/22 06/24/22 06/24/22 Range/Units 20:44 05:30 05:30 Plt Count 11 L* (150-450) k/uL Lymphocytes # 0.6 L (1.0-4.8) k/uL Sodium 133 L (137-145) mmol/L Chloride 97 L (98-107) mmol/L BUN 21 H (7-17) mg/dL Glucose 363 H (74-99) mg/dL Plasma Lactic Acid Judson (0.7-2.0) mmol/L Magnesium (1.6-2.3) mg/dL Urine Protein Trace H (Negative) Urine Blood Large H (Negative) Ur Leukocyte Esterase Moderate H (Negative) Urine RBC >182 H (0-5) /hpf Urine WBC 72 H (0-5) /hpf Urine Mucus Rare H (None) /hpf Comments: renal US report reviewed Chest x-ray: report reviewed Assessment and Plan (1) Acute ITP Current Visit: Yes Status: Acute Priority: High Code(s): D69.3 - IMMUNE THROMBOCYTOPENIC PURPURA SNOMED Code(s): 050979876 Plan: Acute ITP -Steroids started -Plt 11,000 today, no transfusion at this time -Hgb stable, no gross bleeding reported. Recheck CBC in AM Dr. Tran discussed with pt diagnosis-suspect r/t recent infection-treatments, prognosis. All questions answered to pt satisfaction Dr attests: I have seen and examined pt, performed H&P, developed impression and plan of care. Discussed with dictator. Agree with documentation, dictated as a scribe. Time with Patient: Greater than 30
[2022-06-24 20:45] LABS: Glucose,Whole Blood 332 mg/dL (70-110)
[2022-06-24] MEDS: ATORVASTATIN 10 MG TAB PO SCH (21:00)
[2022-06-24] MEDS: PANTOPRAZOLE 40 MG TABLET PO SCH (21:00)
[2022-06-24] MEDS: GABAPENTIN 300 MG CAP PO SCH (21:00)
[2022-06-24] MEDS ORDERED: ZOLPIDEM 5 MG TAB PO SCH (21:00)
[2022-06-24] MEDS ORDERED: ZOLPIDEM 5 MG TAB PO ONE (21:30)
[2022-06-25] MEDS: SYMBICORT 160-4.5 MCG INHALER INHALATION SCH ×3 (00:17→19:57)
[2022-06-25] MEDS: methylPREDNISolone SOD SUCCI 40 MG/ML 1 ML VIAL IV SCH ×4 (00:33→23:23)
[2022-06-25 00:40] LABS: Glucose,Whole Blood 231 mg/dL (70-110)
[2022-06-25] MEDS: INSULIN DETEMIR (LEVEMIR) 100 UNIT/ML SYR SQ SCH (07:41)
[2022-06-25 07:45] LABS: Glucose,Whole Blood 317 mg/dL (70-110)
[2022-06-25] MEDS: INSULIN ASPART (NovoLOG) 100 UNIT/ML VIAL SQ SCH ×4 (09:07→20:34)
[2022-06-25] MEDS: MELOXICAM 7.5 MG TAB PO SCH ×2 (09:08→20:36)
[2022-06-25] MEDS: MONTELUKAST 10 MG TAB PO SCH (09:10)
[2022-06-25] MEDS: lisinopriL 10 MG TAB PO SCH (09:10)
[2022-06-25] MEDS: SERTRALINE 50 MG TAB PO SCH (09:11)
[2022-06-25] MEDS: METOPROLOL TARTRATE 50 MG TAB PO SCH ×2 (09:12→20:34)
[2022-06-25] MEDS: busPIRone HCl 5 MG TAB PO SCH (09:14)
[2022-06-25 09:29] LABS: African American GFR (CKD) 83.6 (60.0-200.0); Anion Gap 10.6 mmol/L (10.00-18.00); BUN/Creat Ratio 24.38 Ratio (12.00-20.00); Blood Urea Nitrogen 19.5 mg/dL (9.0-27.0); Calcium 9.1 mg/dL (8.7-10.3); Carbon Dioxide 26.4 mmol/L (20.0-27.5); Non-African American GFR(CKD) 72.1 (60.0-200.0); Potassium 4.3 mmol/L (3.5-5.5)
[2022-06-25] MEDS: HYDROcodone/APAP 5-325MG 1 EACH TAB PO PRN ×2 (10:48→20:44)
[2022-06-25 10:53] LABS: Basophils # (A) 0.01 X 10*3/uL (0.00-0.10); Basophils % (A) 0.1 %; Eosinophils # (A) 0 X 10*3/uL (0.04-0.35); Eosinophils % (A) 0 %; HCT 39.4 % (37.2-46.3); HGB 13.5 g/dL (12.0-15.0); Immature Grans, Automated 0.5 %; Lymphocytes # (A) 0.76 X 10*3/uL (0.90-5.00); Lymphocytes % (A) 6.8 %; MCH 31.3 pg (27.0-32.0); MCHC 34.3 g/dL (32.0-37.0); MCV 91.2 fL (80.0-97.0); Mean Platelet Volume 13.1 fL (9.5-12.2); Monocytes # (A) 0.33 X 10*3/uL (0.20-1.00); NRBC Per 100 WBC 0 /100 WBCS (0.0-0.0); Neutrophils # (A) 10.01 X 10*3/uL (1.80-7.70); Neutrophils % (A) 89.6 %; Platelet Count 35 X 10*3/uL (140-440); RBC 4.32 X 10*6/uL (4.10-5.20); RDW 12.3 % (11.5-14.5); WBC 11.17 X 10*3/uL (4.50-10.00)
[2022-06-25 10:54] LABS: Immature Platelet Fraction 20.7 % (1.1-6.1)
[2022-06-25 11:10] LABS: Glucose,Whole Blood 279 mg/dL (70-110)
[2022-06-25] MEDS: ACETAMINOPHEN TAB 325 MG TAB PO PRN (12:34)
[2022-06-25 14:21] VITALS: BMI 27.9
--- NOTE | 2022-06-25 15:57 | P.PN ---
Subjective Progress Note Date: 06/25/22 H&P Date: 06/24/22 Chief Complaint: recent covid-s/p boosters,Decr. plts/nosebleeds, easy bruising This is a 76-year-old female with past medical history of hypertension, diabetes, sleep apnea/CPAP/ BiPAP,syncope, renal calculi, phrenic nerve injury, former nicotine dependence, DVT, recent covid approximately 2-3 weeks ago, shortly thereafter developed frequent nosebleeds, easy bruising accompanied by fatigue and mild shortness of breath. Reported fluctuating left flank tenderness/throbbing. States arms bruising easily just from having strap of her purse hanging on her forearm. Proceeded to PCP yesterday, diagnosed with acute UTI and started on Keflex-patient has taken 1 dose prior to admission. Reports hematuria. Labs drawn yesterday at [facility], patient reports called by PCP , reporting platelets of 9 and instructed to go to the ER. On admission, hemoglobin 14.9, platelets 12, PT 10.3, INR 1. Chest x-ray reporting no evidence for acute pulmonary disease. Afebrile, normal WBC, lactic acid 2.1. Sodium 137, potassium 3.8, bicarb 28, BUN 25, creatinine 0.82, glucose 186, magnesium 1.1. UA reporting 72 urine wbc's, moderate leukocytes, negative nitrates. Urine culture pending. Heterophile antibody negative. Influenza type a, type B, RSV and Covid not detected. Antibiotics, steroids initiated, received magnesium supplementation. Jsyohunexxmxn-pzpiacs-iwsctqs, lactic acid now down to 1.2. 06/25/22 maintained on IV steroids, platelets increased to 35. Hemoglobin 13.5. Ischemic, hypertensive, [place] initiated yesterday-improved this morning. Hyperglycemic. Hemoglobin A1c 9.3. Hematuria. Renal function stable. Renal ultrasound reporting no evidence of hydronephrosis, bilateral renal calculi. Maintained on ceftriaxone. Urine cultures reporting no growth after 18 hours. Afebrile. Magnesium 2.4 ,post supplementation. Objective - Vital Signs Vital signs: Vital Signs Temp 98.3 F 06/25/22 12:19 Pulse 81 06/25/22 12:19 Resp 16 06/25/22 12:19 BP 158/83 06/25/22 12:19 Pulse Ox 96 06/25/22 12:19 FiO2 Intake & Output 06/24/22 06/25/22 06/25/22 18:59 06:59 18:59 Intake Total 180 Balance 180 Weight 78.471 kg Intake: Oral 180 Other: Voiding Method Toilet Toilet Toilet # Voids 2 - Exam PHYSICAL EXAM: VITAL SIGNS: As above GENERAL: Alert and oriented 3, Sitting up at side of bed, no acute distress HEENT: Conjunctivae normal. eyes normal. NECK: Supple, No JVD. No thyroid enlargement. No LNs CARDIOVASCULAR: S1, S2 regular.No murmur RESPIRATION: Nonlabored ,Clear to auscultation ,Breath sounds diminished in the bases. ABDOMEN: Soft, nondistended, nontender, left flank tenderness ,No guarding no rigidity.+BS. LEGS: No edema. no swelling NERVOUS SYSTEM: Cranial N 2-12 grossly normal. No focal deficits. Strength and sensation grossly intact. Skin: Multiple areas of ecchymosis , warm and dry - Labs CBC & Chem 7: 06/25/22 06:41 06/25/22 06:41 Labs: Abnormal Lab Results - Last 24 Hours (Table) 06/24/22 06/24/22 06/25/22 Range/Units 17:20 20:44 00:39 WBC (4.50-10.00) X 10*3/uL Plt Count (140-440) X 10*3/uL Plt Count Comment MPV (9.5-12.2) fL Immature Gran # (0.00-0.04) X 10*3/uL Neutrophils # (1.80-7.70) X 10*3/uL Lymphocytes # (0.90-5.00) X 10*3/uL Eosinophils # (0.04-0.35) X 10*3/uL Immature Plt Fraction (1.1-6.1) % BUN/Creatinine Ratio (12.00-20.00) Ratio Glucose (70-110) mg/dL POC Glucose (mg/dL) 296 H 332 H 231 H (70-110) mg/dL 06/25/22 06/25/22 06/25/22 Range/Units 06:41 06:41 07:36 WBC 11.17 H (4.50-10.00) X 10*3/uL Plt Count 35 L (140-440) X 10*3/uL Plt Count Comment A MPV 13.1 H (9.5-12.2) fL Immature Gran # 0.06 H (0.00-0.04) X 10*3/uL Neutrophils # 10.01 H (1.80-7.70) X 10*3/uL Lymphocytes # 0.76 L (0.90-5.00) X 10*3/uL Eosinophils # 0 L (0.04-0.35) X 10*3/uL Immature Plt Fraction 20.7 H (1.1-6.1) % BUN/Creatinine Ratio 24.38 H (12.00-20.00) Ratio Glucose 330 H (70-110) mg/dL POC Glucose (mg/dL) 317 H (70-110) mg/dL 06/25/22 Range/Units 11:07 WBC (4.50-10.00) X 10*3/uL Plt Count (140-440) X 10*3/uL Plt Count Comment MPV (9.5-12.2) fL Immature Gran # (0.00-0.04) X 10*3/uL Neutrophils # (1.80-7.70) X 10*3/uL Lymphocytes # (0.90-5.00) X 10*3/uL Eosinophils # (0.04-0.35) X 10*3/uL Immature Plt Fraction (1.1-6.1) % BUN/Creatinine Ratio (12.00-20.00) Ratio Glucose (70-110) mg/dL POC Glucose (mg/dL) 279 H (70-110) mg/dL Microbiology - Last 24 Hours (Table) 06/23/22 20:44 Urine Culture - Final Urine,Voided Assessment and Plan Assessment: Thrombocytopenia, 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 Atelectasis Hypomagnesemia resolved with supplementation, Acute UTI, on Keflex per PCP as of yesterday. History of DVT Diabetes mellitus, A1c 9.3, further diabetic education recommended also outpatient follow-up in clinic with PCP Hypertension Sleep apnea, uses CPAP, BiPAP Former nicotine dependence Anxiety Plan: Continue on current medication regime ,monitoring and symptomatic treatment. ONC/Hematology recommendations noted and appreciated. Long-acting insulin further adjusted, close monitoring of Accu-Cheks. Continue close monitoring of coags with repeat cbc ordered for a.m. aggressive pulmonary toileting with incentive spirometer ordered, increase ambulation. The impression and plan of care has been dictated as directed. : I performed a history and examination of this patient, discussed the same with the dictator. I agree with the dictator's note ,documented as a scribe. Any additional findings or plans will be noted.
[2022-06-25 17:20] LABS: Glucose,Whole Blood 253 mg/dL (70-110)
--- NOTE | 2022-06-25 18:03 | P.PN ---
Subjective Progress Note Date: 06/25/22 Principal diagnosis: ITP In f/u today pt reporting hematuria, no other bleeding. Her blood sugar is off the chart 2/2 steroids Objective - Vital Signs Vital signs: Vital Signs Temp 98.4 F 06/25/22 07:33 Pulse 84 06/25/22 07:33 Resp 16 06/25/22 07:33 BP 146/88 06/25/22 07:33 Pulse Ox 94 L 06/25/22 07:33 FiO2 Intake & Output 06/24/22 06/25/22 06/25/22 18:59 06:59 18:59 Intake Total 180 Balance 180 Intake: Oral 180 Other: Voiding Method Toilet Toilet # Voids 2 - Constitutional General appearance: Present: average body habitus, cooperative, no acute distress - EENT Eyes: Present: anicteric sclerae, EOMI ENT: Present: hearing grossly normal - Respiratory Details: resp even and unlabored - Neurologic Neurologic: Present: CNII-XII intact - Musculoskeletal Musculoskeletal: Present: strength equal bilaterally - Psychiatric Psychiatric: Present: A&O x's 3, appropriate affect, intact judgment & insight - Labs CBC & Chem 7: 06/25/22 06:41 06/25/22 06:41 Labs: Abnormal Lab Results - Last 24 Hours (Table) 06/24/22 06/24/22 06/24/22 Range/Units 05:30 12:24 17:20 WBC (4.50-10.00) X 10*3/uL Plt Count (140-440) X 10*3/uL Plt Count Comment MPV (9.5-12.2) fL Immature Gran # (0.00-0.04) X 10*3/uL Neutrophils # (1.80-7.70) X 10*3/uL Lymphocytes # (0.90-5.00) X 10*3/uL Eosinophils # (0.04-0.35) X 10*3/uL Immature Plt Fraction (1.1-6.1) % BUN/Creatinine Ratio (12.00-20.00) Ratio Glucose (70-110) mg/dL POC Glucose (mg/dL) 239 H 296 H (70-110) mg/dL Hemoglobin A1c 9.3 H (0.0-6.0) % 06/24/22 06/25/22 06/25/22 Range/Units 20:44 00:39 06:41 WBC 11.17 H (4.50-10.00) X 10*3/uL Plt Count 35 L (140-440) X 10*3/uL Plt Count Comment A MPV 13.1 H (9.5-12.2) fL Immature Gran # 0.06 H (0.00-0.04) X 10*3/uL Neutrophils # 10.01 H (1.80-7.70) X 10*3/uL Lymphocytes # 0.76 L (0.90-5.00) X 10*3/uL Eosinophils # 0 L (0.04-0.35) X 10*3/uL Immature Plt Fraction 20.7 H (1.1-6.1) % BUN/Creatinine Ratio (12.00-20.00) Ratio Glucose (70-110) mg/dL POC Glucose (mg/dL) 332 H 231 H (70-110) mg/dL Hemoglobin A1c (0.0-6.0) % 06/25/22 06/25/22 06/25/22 Range/Units 06:41 07:36 11:07 WBC (4.50-10.00) X 10*3/uL Plt Count (140-440) X 10*3/uL Plt Count Comment MPV (9.5-12.2) fL Immature Gran # (0.00-0.04) X 10*3/uL Neutrophils # (1.80-7.70) X 10*3/uL Lymphocytes # (0.90-5.00) X 10*3/uL Eosinophils # (0.04-0.35) X 10*3/uL Immature Plt Fraction (1.1-6.1) % BUN/Creatinine Ratio 24.38 H (12.00-20.00) Ratio Glucose 330 H (70-110) mg/dL POC Glucose (mg/dL) 317 H 279 H (70-110) mg/dL Hemoglobin A1c (0.0-6.0) % Microbiology - Last 24 Hours (Table) 06/23/22 20:44 Urine Culture - Final Urine,Voided Assessment and Plan (1) Acute ITP Current Visit: Yes Status: Acute Priority: High Code(s): D69.3 - IMMUNE THROMBOCYTOPENIC PURPURA SNOMED Code(s): 025918073 Plan: Acute ITP -Possiblly r/t recent covid infection -Steroids started 06/24/22. Transition to PO tomorrow morning -Plt improved to 35,000 today, no transfusion needed -Hgb stable today. Hematuria reported. -Recommend that pt f/u with her Urologist soon-hematuria, Hx nephrolithiasis, last lithotripsy was 04/14 -Recommend f/u with [facility] for recommendations for treating significantly elevated CBG from steroids. She is going to be on steroid taper for at least 6 weeks. Pred taper and PPI Rx sent to [facility] at pt request Time with Patient: Greater than 30
[2022-06-25 20:28] LABS: Glucose,Whole Blood 275 mg/dL (70-110)
[2022-06-25] MEDS: GABAPENTIN 300 MG CAP PO SCH (20:34)
[2022-06-25] MEDS: ATORVASTATIN 10 MG TAB PO SCH (20:35)
[2022-06-25] MEDS: PANTOPRAZOLE 40 MG TABLET PO SCH (20:35)
[2022-06-25] MEDS ORDERED: INSULIN DETEMIR (LEVEMIR) 100 UNIT/ML SYR SQ SCH (21:00)
[2022-06-25] MEDS ORDERED: ZOLPIDEM 5 MG TAB PO SCH (21:00)
[2022-06-26 05:46] LABS: HCT 38.3 % (34.0-46.0); MCH 31.1 pg (25.0-35.0); MCV 91.4 fL (80.0-100.0); Mean Platelet Volume 9.1; RBC 4.19 m/uL (3.80-5.40); RDW 12.5 % (11.5-15.5); WBC 13.3 k/uL (3.8-10.6)
[2022-06-26 06:16] LABS: Platelet Count 86 k/uL (150-450)
[2022-06-26 07:23] LABS: Glucose,Whole Blood 312 mg/dL (70-110)
[2022-06-26] MEDS: INSULIN DETEMIR (LEVEMIR) 100 UNIT/ML SYR SQ SCH (07:31)
[2022-06-26 07:52] VITALS: BP 152/78; PULSE 66; RESP 14; TEMP 98
[2022-06-26] MEDS: SYMBICORT 160-4.5 MCG INHALER INHALATION SCH (07:59)
[2022-06-26] MEDS ORDERED: predniSONE 20 MG TAB PO SCH (09:00)
[2022-06-26] MEDS: INSULIN ASPART (NovoLOG) 100 UNIT/ML VIAL SQ SCH (09:17)
[2022-06-26] MEDS: METOPROLOL TARTRATE 50 MG TAB PO SCH (09:18)
[2022-06-26] MEDS: lisinopriL 10 MG TAB PO SCH (09:19)
[2022-06-26] MEDS: SERTRALINE 50 MG TAB PO SCH (09:19)
[2022-06-26] MEDS: busPIRone HCl 5 MG TAB PO SCH (09:19)
[2022-06-26] MEDS: MONTELUKAST 10 MG TAB PO SCH (09:19)
[2022-06-26] MEDS: MELOXICAM 7.5 MG TAB PO SCH (09:19)
--- NOTE | 2022-06-26 13:30 | P.DS ---
Providers Date of admission: 06/23/22 22:05 Expected date of discharge: 06/26/22 Attending physician: Romeo Hernandes MD Consults: 06/23/22 22:05 Consult Physician Urgent Consulting Provider: Florentin Tran Consult Reason/Comments: ITP Do you want consulting provider notified?: Already Contacted Primary care physician: Romeo Hernandes MD Hospital Course: Final Diagnoses: Thrombocytopenia, 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 Atelectasis Hypomagnesemia resolved with supplementation, Acute UTI, on Keflex per PCP as of yesterday. Urine culture negative. History of DVT Diabetes mellitus, A1c 9.3, further diabetic education recommended also outpatient follow-up in clinic with PCP Hypertension History of nephrolithiasis, recent lithotripsy 04/14 Sleep apnea, uses CPAP, BiPAP Former nicotine dependence Anxiety Hospital course:This is a 76-year-old female with past medical history of hypertension, diabetes, sleep apnea/CPAP/ BiPAP,syncope, renal calculi, phrenic nerve injury, former nicotine dependence, DVT, recent covid approximately 2-3 weeks ago, shortly thereafter developed frequent nosebleeds, easy bruising accompanied by fatigue and mild shortness of breath. Reported fluctuating left flank tenderness/throbbing. States arms bruising easily just from having strap of her purse hanging on her forearm. Proceeded to PCP yesterday, diagnosed with acute UTI and started on Keflex-patient has taken 1 dose prior to admission. Reports hematuria. Labs drawn yesterday at [facility], patient reports called by PCP , reporting platelets of 9 and instructed to go to the ER. On admission, hemoglobin 14.9, platelets 12, PT 10.3, INR 1. Chest x-ray reporting no evidence for acute pulmonary disease. Afebrile, normal WBC, lactic acid 2.1. Sodium 137, potassium 3.8, bicarb 28, BUN 25, creatinine 0.82, glucose 186, magnesium 1.1. UA reporting 72 urine wbc's, moderate leukocytes, negative nitrates. Urine culture pending. Heterophile antibody negative. Influenza type a, type B, RSV and Covid not detected. Antibiotics, steroids initiated, received magnesium supplementation. Hzifsswjotovy-fymvjex-[id number], lactic acid now down to 1.2. 06/25/22 maintained on IV steroids, platelets increased to 35. Hemoglobin 13.5. Ischemic, hypertensive, Zion initiated yesterday-improved this morning. Hyperglycemic. Hemoglobin A1c 9.3. Hematuria. Renal function stable. Renal ultrasound reporting no evidence of hydronephrosis, bilateral renal calculi. Maintained on ceftriaxone. Urine cultures reporting no growth after 18 hours. Afebrile. Magnesium 2.4 ,post supplementation. Hyperglycemic secondary to steroids, long-acting insulin increased. At DC Tresiba dose increased along with addition of NovoLog sliding scale. Transition to oral steroids this morning, platelets 86, hemoglobin stable ,13. Hematuria yesterday otherwise no other bleeding reported. Positive diet intake with no nausea vomiting or diarrhea. Denies abdominal pain. Denies chest pain, palpitations or shortness of breath. Significant clinical improvement. Patient has been cleared by hematology for discharge on steroid taper for at least 6 weeks. Patient will be discharged home today in a stable condition with guarded prognosis. The impression and plan of care has been dictated as directed. : I performed a history and examination of this patient, discussed the same with the dictator. I agree with the dictator's note ,documented as a scribe. Any additional findings or plans will be noted. Patient Condition at Discharge: Stable Plan - Discharge Summary Discharge Rx Participant: Yes New Discharge Prescriptions: New predniSONE [Deltasone] 80 mg PO DAILY #74 tab Insulin Aspart [NovoLOG Flexpen] 0 units SQ ACHS #1 each lisinopriL [Zestril] 10 mg PO DAILY #30 tab Omeprazole 40 mg PO BID #60 cap Pen Needle, Diabetic [Pen Needle] 1 each ACHS #120 each Continue Metoprolol Tartrate [Lopressor] 100 mg PO BID Zolpidem [Ambien] 10 mg PO HS Albuterol Inhaler [Ventolin Hfa Inhaler] 2 puff INHALATION RT-Q6H PRN PRN Reason: Shortness Of Breath busPIRone HCL [Buspar] 7.5 mg PO DAILY Sertraline [Zoloft] 50 mg PO DAILY Meloxicam [Mobic] 7.5 mg PO BID Montelukast [Singulair] 10 mg PO DAILY Semaglutide [Ozempic] 1 mg SQ SA Budesonide/Formoterol Fumarate [Symbicort 160-4.5 Mcg Inhaler] 1 puff INHALATION RT-BID Gabapentin 300 mg PO HS Atorvastatin [Lipitor] 10 mg PO HS Changed Insulin Degludec [Tresiba] 20 units SQ DAILY #0 Discontinued hydroCHLOROthiazide 50 mg PO Q48H Omeprazole 20 mg PO HS Cephalexin [Keflex] 500 mg PO Q12HR Discharge Medication List Metoprolol Tartrate [Lopressor] 100 mg PO BID 10/05/17 [History] Zolpidem [Ambien] 10 mg PO HS 02/04/19 [History] Albuterol Inhaler [Ventolin Hfa Inhaler] 2 puff INHALATION RT-Q6H PRN 02/24/19 [History] Meloxicam [Mobic] 7.5 mg PO BID 01/26/20 [History] Sertraline [Zoloft] 50 mg PO DAILY 01/26/20 [History] busPIRone HCL [Buspar] 7.5 mg PO DAILY 01/26/20 [History] Atorvastatin [Lipitor] 10 mg PO HS 06/23/22 [History] Budesonide/Formoterol Fumarate [Symbicort 160-4.5 Mcg Inhaler] 1 puff INHALATION RT-BID 06/23/22 [History] Gabapentin 300 mg PO HS 06/23/22 [History] Montelukast [Singulair] 10 mg PO DAILY 06/23/22 [History] Semaglutide [Ozempic] 1 mg SQ SA 06/23/22 [History] Omeprazole 40 mg PO BID #60 cap 06/25/22 [Rx] predniSONE [Deltasone] 80 mg PO DAILY #74 tab 06/25/22 [Rx] Insulin Aspart [NovoLOG Flexpen] 0 units SQ ACHS #1 each 06/26/22 [Rx] Insulin Degludec [Tresiba] 20 units SQ DAILY #0 06/26/22 [Rx] Pen Needle, Diabetic [Pen Needle] 1 each ACHS #120 each 06/26/22 [Rx] lisinopriL [Zestril] 10 mg PO DAILY #30 tab 06/26/22 [Rx] Follow up Appointment(s)/Referral(s): Romeo Hernandes MD [Primary Care Provider] - 1 Week (Please make follow up appointment.) Florentin Tran MD [STAFF PHYSICIAN] - 07/02/22 1:30 pm () Scar Cameron MD [REFERRING] - 06/29/22 11:30 am () Ambulatory/Diagnostic Orders: Complete Blood Count w/diff [LAB.AMB] Time Frame: 3 Days, Location: None Selected Patient Instructions/Handouts: Urinary Tract Infection in Women (DC), Immune Thrombocytopenia (DC) Discharge Disposition: HOME SELF-CARE
== END 2022-06-26 10:57 | disposition home or self-care (01) | DRG 813 ==
LOC: EC 18:37 → 5NMEDONC 22:05
PROVIDERS: ADMIT Family Medicine; ATTEND Family Medicine
DX: D69.3 Immune thrombocytopenic purpura (principal); N39.0 Urinary tract infection, site not specified; J98.11 Atelectasis; T38.0X5A Adverse effect of glucocorticoids and synthetic analogues, initial encounter; Z20.822 Contact with and (suspected) exposure to COVID-19; E83.42 Hypomagnesemia; Z86.16 Personal history of COVID-19; E11.65 Type 2 diabetes mellitus with hyperglycemia; G47.30 Sleep apnea, unspecified; F41.9 Anxiety disorder, unspecified; R31.9 Hematuria, unspecified; G58.8 Other specified mononeuropathies; I10 Essential (primary) hypertension; X58.XXXA Exposure to other specified factors, initial encounter; Z88.1 Allergy status to other antibiotic agents; Z79.1 Long term (current) use of non-steroidal anti-inflammatories (NSAID); Z79.52 Long term (current) use of systemic steroids; Z79.899 Other long term (current) drug therapy; Z87.440 Personal history of urinary (tract) infections; Z87.442 Personal history of urinary calculi; Z90.710 Acquired absence of both cervix and uterus; Z79.51 Long term (current) use of inhaled steroids; Z90.49 Acquired absence of other specified parts of digestive tract; Z98.42 Cataract extraction status, left eye; Z98.41 Cataract extraction status, right eye; Z87.01 Personal history of pneumonia (recurrent); Z87.19 Personal history of other diseases of the digestive system; Z87.891 Personal history of nicotine dependence; Z79.84 Long term (current) use of oral hypoglycemic drugs
CPT/HCPCS: 36415; 71046; 76770; 80048; 80053; 81001; 83036; 83605; 83735; 84100; 84484; 85025; 85027; 85610; 85730; 86308; 86850; 86900; 86901; 87086; 87636; 94640; 96365; 96366; 96367; 96375; 99285

== ENCOUNTER → 2022-08-05 | Outpatient (CLI) | payer MEDICARE, BC ==
--- NOTE | 2022-08-05 14:14 | CT ---
EXAMINATION TYPE: CT chest wo con DATE OF EXAM: 08/05/2022 COMPARISON: CTA chest November 18, 2017 HISTORY: cough, SOB CT DLP: 1200.4 mGycm. Automated Exposure Control for Dose Reduction was Utilized. TECHNIQUE: CT scan of the thorax is performed without IV contrast. High resolution protocol with 1 m m sequences obtained in supine and prone technique at 10 mm intervals in both full inspiration and ex piration. FINDINGS: LUNGS: Moderate underlying emphysematous change is redemonstrated greatest in the upper lungs. There is redemonstration of elevated right hemidiaphragm with right basilar surgical sutures and chronic co nsolidation with air bronchograms at this level. Mild peripheral reticulation and fibrotic change see n fairly diffusely. Some scattered areas of thin-walled cyst bilaterally greatest in the upper lungs. No bronchiectasis. No honeycombing. No pleural effusion or pneumothorax seen bilaterally. MEDIASTINUM: Lack of IV contrast and technique are noted to limit evaluation for mediastinal and ruby cially hilar adenopathy. There are no definitive new Greater than 1 cm mediastinal lymph nodes. Stabl e mild cardiomegaly. No pericardial effusion is seen. OTHER: There is 2.0 cm exophytic thin-walled cyst laterally from the left kidney incidentally noted. Some right renal calculi are redemonstrated. Cholecystectomy clips are redemonstrated. IMPRESSION: Moderate emphysematous change with mild bilateral parenchymal fibrosis. Posttreatment britta nge to the right lung base redemonstrated.
== END | disposition home or self-care (01) ==
LOC: RADCTMAIN 12:24
PROVIDERS: ATTEND Internal Medicine Critical Care Medicine
DX: J43.9 Emphysema, unspecified (principal); J84.10 Pulmonary fibrosis, unspecified; J20.9 Acute bronchitis, unspecified
CPT/HCPCS: 71250

== ENCOUNTER → 2022-11-17 | Outpatient (CLI) | payer MEDICARE, BC ==
[2022-11-17 15:43] LABS: ALT 22 U/L (4-34); AST 26 U/L (14-36); African American GFR (CKD) 80 (>60 ml/min/1.73 sqM); Albumin 4.3 g/dL (3.5-5.0); Albumin/Globulin Ratio 1.6; Alkaline Phosphatase 72 U/L (38-126); Anion Gap 10 mmol/L; Blood Urea Nitrogen 17 mg/dL (7-17); Calcium 9.2 mg/dL (8.4-10.2); Carbon Dioxide 29 mmol/L (22-30); Chloride 97 mmol/L (98-107); Globulin 2.7 g/dL; Glucose 111 mg/dL (74-99); Non-African American GFR(CKD) 69 (>60 ml/min/1.73 sqM); Potassium 3.7 mmol/L (3.5-5.1); Sodium 136 mmol/L (137-145); Total Bilirubin 0.6 mg/dL (0.2-1.3)
[2022-11-17 23:03] LABS: Urine Creatinine 29.1 mg/dL (28.0-217.0)
[2022-11-18 02:29] LABS: Chol/HDL Ratio 3.14 Ratio; LDL Cholesterol,Calculated 95.6 mg/dL (0.0-131.0)
--- NOTE | 2022-11-18 09:36 | CT ---
EXAMINATION TYPE: CT abdomen pelvis wo/w con DATE OF EXAM: 11/17/2022 HISTORY: recurring UTI and r/o fistula CT DLP: 1930.20mGycm Automated Exposure Control for Dose Reduction was Utilized. CONTRAST: CT scan of the abdomen and pelvis is performed with oral and without and with IV Contrast, patient in jected with 100 mL of Isovue 300. COMPARISON: Most recent CT July 30, 2022 FINDINGS: LUNG BASES: Elevated right hemidiaphragm is redemonstrated. There is associated right basilar atelect asis and/or chronic consolidation. Coronary artery calcification is redemonstrated. Calcification at level of the aortic valve is again seen. LIVER/GB: Cholecystectomy clips are redemonstrated. PANCREAS: No significant abnormality is seen. SPLEEN: No significant abnormality is seen. ADRENALS: No significant abnormality is seen. KIDNEYS: Calcifications pole left kidney are redemonstrated favored vascular in etiology. Some areas of cortical volume loss are noted. There are 2 subcentimeter low dense lesions in left kidney too sma ll to further characterize presumed benign. There is exophytic 2.2 cm thin-walled cyst laterally lowe r pole left kidney image 50 series 7 redemonstrated. Right-sided nephrolithiasis is seen including dominant 10 mm calculus image 22 series 3 at lower pole level. Symmetric cortical medullary uptake and excretion without hydronephrosis is seen bilaterally. Persist ent mild to moderate concentric wall thickening along the right aspect of the urinary bladder with mu cosal enhancement similar to prior. BOWEL: Stable small to moderate size hiatal hernia. Oral contrast does not reach level of the termina l ileum making evaluation of distal bowel slightly suboptimal. No suspicious small or large bowel dil atation. Mild diffuse colonic fecal prominence. Sigmoid colonic diverticulosis redemonstrated without convincing CT evidence for acute diverticulitis. UTERUS/ADNEXA: Uterus surgically absent or markedly atrophic. LYMPH NODES: No greater than 1cm abdominal or pelvic lymph nodes are appreciated. OSSEOUS STRUCTURES: There is S-shaped scoliosis with multilevel spurring and disc space narrowing thr oughout the thoracolumbar spine. Multilevel vacuum disc phenomenon is redemonstrated. Multilevel lami nectomy defects and spinous process resection in the lower lumbar spine is redemonstrated. OTHER: Moderate calcified plaque of the aorta extends into branch vessels. IMPRESSION: No obvious bladder fistula identified. Suboptimal study as delayed phase imaging is not e xtended through the level of the bladder. No suspicious internal air within bladder. No significant c hange from most recent prior CT. Wall thickening and mural enhancement of the right aspect of the fe dder is redemonstrated and should be correlated clinically.
== END | disposition home or self-care (01) ==
LOC: RADCTMAIN 14:59
PROVIDERS: ATTEND Obstetrics & Gynecology
DX: N39.0 Urinary tract infection, site not specified (principal); N32.89 Other specified disorders of bladder
CPT/HCPCS: 80061; 80053; 82043; 82570; 83036; 74178; 36415; Q9967

== ENCOUNTER → 2024-02-08 | Outpatient (CLI) | payer MEDICARE, BC ==
[2024-02-08 15:57] LABS: INR 0.9 (<1.2); Partial Thromboplastin Time 26.1 sec (22.0-30.0); Prothrombin Time 10.4 sec (10.0-12.5)
[2024-02-09 02:26] LABS: HCT 44.3 % (37.2-46.3); HGB 14.5 g/dL (12.0-15.0); MCH 31.3 pg (27.0-32.0); MCHC 32.7 g/dL (32.0-37.0); MCV 95.7 FL (80.0-97.0); Mean Platelet Volume 11.3 FL (9.5-12.2); NRBC Per 100 WBC 0 X 10*3/uL (0.00-0.01); Platelet Count 276 X 10*3/uL (140-440); RBC 4.63 X 10*6/uL (4.10-5.20); RDW 13.2 % (11.5-14.5)
[2024-02-09 03:20] LABS: BUN/Creat Ratio 15.93 Ratio (12.00-20.00); Blood Urea Nitrogen 22.3 mg/dL (9.0-27.0); Carbon Dioxide 23.3 mmol/L (21.6-31.8); Chloride 100 mmol/L (96-109); Glucose 122 mg/dL (70-110); Potassium 4.8 mmol/L (3.5-5.5); Sodium 138 mmol/L (135-145)
[2024-02-09 03:21] LABS: ALT 21 U/L (8-44); AST 21 U/L (13-35); Albumin 4.4 g/dL (3.8-4.9); Albumin/Globulin Ratio 1.83 Ratio (1.60-3.17); Alkaline Phosphatase 71 U/L (41-126); Calcium 9.9 mg/dL (8.7-10.3); Globulin 2.4 g/dL (1.6-3.3); Total Bilirubin 0.3 mg/dL (0.3-1.2); Total Protein 6.8 g/dL (6.2-8.2)
== END | disposition home or self-care (01) ==
LOC: LABPAT 14:41
PROVIDERS: ATTEND Orthopaedic Surgery
DX: Z01.818 Encounter for other preprocedural examination
CPT/HCPCS: 80053; 85027; 85610; 85730; 87070; 93005

== ENCOUNTER 2024-02-21 07:17 | Inpatient (IN) | payer MEDICARE, BC ==
[2024-02-17 09:36] VITALS: BMI 27.6
[~2024-02-21 07:17] MED LIST changes: -BEBTELOVIMAB (EUA) 175 MG/2 ML VIAL IV NR; +GABAPENTIN 300 MG CAP PO PRN; +TRANEXAMIC 1,000 MG/100ML-NACL 1,000 MG in SALINE 1 100ML.BAG IVPB PRN
[2024-02-21] MEDS ORDERED: ONDANSETRON 4 MG/2 ML VIAL IVP PRN ×2 (07:26→08:39)
[2024-02-21] MEDS ORDERED: LIDOCAINE 1% (10MG/ML) FOR IV START INTRADERMA PRN (07:26)
[2024-02-21 08:08] LABS: Glucose,Whole Blood 149 mg/dL (70-110)
[2024-02-21] MEDS: ACETAMINOPHEN TAB 500 MG TAB PO PRN (08:20)
[2024-02-21] MEDS: MELOXICAM 7.5 MG TAB PO PRN (08:20)
[2024-02-21] MEDS: DEXAMETHASONE SOD PHOSPHATE 4 MG/ML 1 ML VIAL IV ONE (08:23)
[2024-02-21] MEDS: ONDANSETRON 4 MG/2 ML VIAL IVP ONE (08:24)
[2024-02-21] MEDS: IV FLUID CONTINUATION 1,000 ML IV ONE ×2 (08:33→14:25)
[2024-02-21] MEDS: LACTATED RINGERS 1,000 ML IV SCH (08:34)
[2024-02-21] MEDS ORDERED: NA PHOS,M-B/NA PHOS,DI-BA 133 ML ENEMA RECTAL PRN (08:39)
[2024-02-21] MEDS ORDERED: bisacodyL 10 MG SUPP RECTAL PRN (08:39)
[2024-02-21] MEDS ORDERED: NALOXONE 0.4 MG/ML 1 ML VIAL IV PRN (08:39)
[2024-02-21] MEDS ORDERED: HYDROmorphone 0.5 MG/0.5 ML SYRINGE IVP PRN ×2 (08:39)
[2024-02-21] MEDS ORDERED: MAGNESIUM HYDROXIDE 2,400 MG/30 ML CUP PO PRN (08:39)
[2024-02-21] MEDS: MIDAZOLAM 2 MG/2 ML VIAL IV ONE (08:53)
[2024-02-21] MEDS: fentaNYL (PF) 50 MCG/ML 2 ML AMP IVP ONE (08:54)
[2024-02-21] MEDS ORDERED: NEOSTIGMINE 1 MG/ML 10 ML VIAL ONE (09:02)
[2024-02-21] MEDS ORDERED: ETOMIDATE 2 MG/ML 10 ML VIAL ONE (09:02)
[2024-02-21] MEDS ORDERED: MIDAZOLAM 2 MG/2 ML VIAL ONE (09:02)
[2024-02-21] MEDS ORDERED: fentaNYL (PF) 50 MCG/ML 2 ML AMP ONE (09:02)
[2024-02-21] MEDS ORDERED: LIDOCAINE 1% INJ 10MG/ML (20 ML MDV) ONE (09:02)
[2024-02-21] MEDS ORDERED: PHENYLEPHRINE 10 MG/ML VIAL ONE (09:02)
[2024-02-21] MEDS ORDERED: ePHEDrine 50 MG/ML 1 ML VIAL ONE (09:02)
[2024-02-21] MEDS ORDERED: GLYCOPYRROLATE 0.2 MG/ML 2 ML VIAL ONE (09:02)
[2024-02-21] MEDS ORDERED: ROCURONIUM 10 MG/ML (5 ML VIAL) IV ONE (09:02)
[2024-02-21] MEDS ORDERED: HYDROmorphone (PF) 1 MG/ML ONE (09:02)
[2024-02-21] MEDS ORDERED: SUCCINYLCHOLINE CHLORIDE 200 MG/10 ML VIAL IV ONE (09:02)
[2024-02-21] MEDS ORDERED: TRANEXAMIC 1,000 MG/100ML-NACL PREMIX BAG ONE (09:02)
[2024-02-21] MEDS ORDERED: SODIUM CHLORIDE 0.9% (PF) 10 ML VIAL ONE (09:02)
[2024-02-21] MEDS ORDERED: ROPIVACAINE 5 MG/ML 30 ML VIAL ONE (09:02)
[2024-02-21] MEDS: ceFAZolin 1,000 MG in SODIUM CHLORIDE 0.9% 1,000 ML IRRIGATION ONE (09:04)
--- NOTE | 2024-02-21 10:29 | P.OP ---
Date of Procedure: 02/21/24 Preoperative Diagnosis: Severe osteoarthritis, left knee Postoperative Diagnosis: Severe osteoarthritis, left knee Procedure(s) Performed: Left total knee arthroplasty Implants: [employer] II Oxinium Bi-cruciate stabilized femoral component size 5, left [employer] nonporous tibial baseplate size 3, left [employer] II, constrained articular insert, size 9 mm, Size 3-4, left [employer] Judit II resurfacing patellar component, oval, 29 mm All components were cemented using Palacos R bone cement The articulation is Oxinium on polyethylene Anesthesia: ACOSTA Surgeon: Parveen Espitia Business Rules Analyst #1: Kathy Luu Estimated Blood Loss (ml): 30 Pathology: none sent Condition: stable Disposition: PACU Indications for Procedure: The patient's knee is end-stage, and conservative management has failed. The operation of knee replacement has been discussed at length in the office, as well as potential risks and complications. These are inclusive of, but not limited to: Infection, bleeding, scarring, discomfort, stiffness, blood vessel and nerve damage, need for further surgery, failure to relieve symptoms, persistence, recurrence, or worsening of problems, loosening, dislocation, wear, blood clot, pulmonary embolism, , gait dysfunction, stiffness, and other risks as discussed in the office. Patient elects to proceed and the consent form has been signed. Operative Findings: The operative findings are consistent with severe osteoarthritis of the left knee Description of Procedure: The patient was seen in the preoperative area, the consent was reviewed and the operative site was marked with a skin marker. The patient verified the procedure and the operative site. An adductor canal pain catheter and an iPACK block were placed by anesthesia in the preoperative area. The patient was then brought to the operating room and positioned on the operating room table in the supine position. Preoperative antibiotics and a gram of tranexamic acid were given intravenously. A generall anesthetic was administered by the anesthesia department. Care was taken to make sure that all pressure points were adequately padded. A tourniquet was placed on the upper thigh and the lower extremity was prepped with ChloraPrep and draped in usual sterile fashion. A universal time-out was then performed which confirmed the patient's name, surgical site, ALLERGIES, and consent. The lower extremity was then exsanguinated and tourniquet was inflated to 250 mmHg. A standard anterior midline approach to the knee was performed. The skin and subcutaneous tissue were sharply dissected down to the patellar tendon. A medial parapatellar arthrotomy was then performed. The knee was then extended, the patellar was everted, and the knee was flexed. The infra-patellar fat pad was removed in order to enhance exposure. The anterior horns of both menisci were excised, and a release was performed to the posterior medial aspect of the knee. On gross visual inspection, there was complete loss of articular cartilage in the medial and patellofemoral joint spaces. There was also significant cartilage damage in the lateral compartment. There were multiple periarticular osteophytes globally about the knee which were then removed with a Ronguer. The femoral canal was then opened with the 9.5 mm intramedullary drill. The 8 mm intramedullary clifton was then inserted into the femoral canal with the distal femoral cutting guide set for 5 of valgus. The distal femoral cutting block was then pinned in place. The intramedullary clifton was then removed, and the distal femur was then cut. The cutting block was then removed and the cut was checked for symmetry. The resected bone was then measured to c onfirm the appropriate distal femoral resection. Next, the sizing guide was then placed and set for 3 external rotation based off of the epicondylar axis and [place]'s line. Pins were then placed and the drill holes, and the femur was sized with the sizing stylus. The pins were then removed, and the sizing guide was then removed. The spikes of the appropriate size femoral block was then placed into the predrilled holes, and malleted into place. Two 45 mm pins were then placed into the fixation holes on the cutting block. An latosha wing was then used to ensure there would be no notching with the anterior cut. The anterior condyles were cut without notching. The anterior chord cut was then performed, followed by the posterior cut, posterior chamfer cut, and the anterior chamfer cut. The collateral ligaments were protected during the entire process. The cutting block was then removed. Any remaining bone and osteophytes were removed from the femur with a Ronguer. Attention was then directed to the tibia. The remaining ACL was removed with a Ronguer, and the tibia was then gently subluxed forward with a large bent knee retractor. Any remaining menisci were excised. The posterior lateral corner was cauterized in order to coagulate the lateral geniculate artery. The extra medullary tibial cutting guide was then placed, set for the appropriate rotation, slope, and depth of resection. The proximal tibia cutting guide was then pinned in place. Proximal tibia was then cut and sized. A curved osteotome was then used to remove any posterior osteophytes from the distal femur. The femoral trial was placed. The box cutting guide was then used to remove the intracondylar femoral bone. The box trial was then placed. The tibial trial was placed with the appropriate-sized insert. The knee was able to fully extend and flex to 130 and was stable throughout all range of motion. The knee was then extended and the patella was everted. Patella was then measured, and then using an osteotomy guide, the patella was cut at the appropriate level. The patellar component was sized. The patellar drill guide was placed and the patella was drilled. The patella trial was then placed. The knee was then taken through range of motion with the patella trial and the patella tracked normally using the no thumbs technique. The patella trial was then removed. The knee was then flexed and lug holes were drilled through the femoral trial and the femoral trial was then removed. The tibial was then re-exposed, and the tibial broach guide was then pinned in place after it was set for the appropriate rotation to allow for the most coverage without overhang. The tibia was then reamed and broached. The femoral canal was plugged with autologous bone. The cut surfaces of bone were then irrigated with pulsatile lavage. The knee was also irrigated with Irrisept solution. The components were then opened, the cement was mixed. Cement was placed on the backside of the femoral, tibial, and patellar components. Cement was then applied to the tibial surface and pressurized into the surface using finger pressurization technique. The tibial component was then applied and excess cement was removed after it was impacted securely noted to be flush with the cut surface. In similar fashion, the cement was applied to the cut femoral surface, pressurized and using finger pressurization the component was impacted in place. Excess cement was removed. The polyethylene spacer was then implanted and locked into position. Patellar component was then applied in a similar technique and the patellar clamp was used to hold patella in place while the cement hardened. The knee was held in full extension while the cement hardened. Once the cement had fully hardened, the knee was reinspected. Any other cement extrusion was removed the final range of motion testing showed range of motion from 0-130 with excellent stability, both medial and laterally and appropriate alignment of the leg. Patella tracked normally. After the cemented hardened, the tourniquet was released and hemostasis was obtained. A second gram of transexamic acid was given intravenously. The knee was again irrigated. The knee was again taken through range of motion and found to be stable throughout all range of motion of 0-130, and the patella tracked normally. The fascia was then closed with 0 Vicryl followed by #2 strata fix suture. The subcutaneous tissue was closed with 3-0 Vicryl and 3-0 strata fix. Exofin glue was used for the skin and placed with the knee in flexion. After the glue had dried, and Optafoam silver impregnated dressing was applied. A lightly compressive dressing was applied using web roll and Zion wrap. Patient was then transferred to the stretcher and taken to recovery room in stable condition. Sponge and needle counts were correct. The safety admin assistant SARAN Escalante was required due the complexity surgery and the need for a skilled surgical instrument repair specialist. She assisted in positioning, draping, retraction, and closure of the wound.
[2024-02-21] MEDS: LACTATED RINGERS 1,000 ML IV ONE (10:45)
--- NOTE | 2024-02-21 11:19 | XR ---
EXAMINATION TYPE: XR knee limited LT DATE OF EXAM: 02/21/2024 11:10 AM CLINICAL INDICATION: Female, 78 years old with history of Evaluation for Postop abnormality and align ment; [facility] COMPARISON: None. TECHNIQUE: XR knee limited LT; examined in Frontal, lateral projections. FINDINGS: Status post total knee arthroplasty changes with hardware in appropriate alignment and in tact. No evidence of fracture. Subcutaneous lucencies and lucencies within the joint consistent with surgical changes. IMPRESSION: Status post total knee arthroplasty changes with hardware intact and appropriate alignment. No fractu res identified. [facility], , 02/21/2024 11:16 AM
[2024-02-21] MEDS: ROPIVACAINE 1,100 MG, SODIUM CHLORIDE 0.9% 500 ML 330 ML, EMPTY PAIN BALL 1 EACH MISCELLANE PRN (11:27)
[2024-02-21] MEDS: HYDROmorphone 0.5 MG/0.5 ML SYRINGE IVP PRN ×2 (11:28→17:15)
[2024-02-21 16:22] LABS: Glucose,Whole Blood 221 mg/dL (70-110)
--- NOTE | 2024-02-21 17:04 | P.ANPRN ---
Procedure Note - Anesthesia - Nerve Block Performed Left Adductor Canal Infusion Time Out Performed: Yes (0835) Date of Procedure: 02/21/24 Procedure Start Time: 08:36 Procedure Stop Time: 08:41 Location of Patient: PreOp Indication: Acute Post-Operative Pain, Requested by Surgeon Specifically requested for management of pain by DrTristen: Parveen Espitia Sedation Type: Sedate with meaningful contact maintained Preparation: Sterile Prep, Sterile Dressing Position: Supine Catheter Depth at Skin (cm): 7 Catheter: Indwelling Needle Types: Pajunk Needle Gauge: 18 Ultrasound used to visualize needle placement: Yes Ultrasound used to observe medication spread: Yes Injectate: 0.5% Ropivacaine (see comment for volume) (115cc +10cc nacl pf) Blood Aspirated: No Pain Paresthesia on Injection Noted: No Resistance on Injection: Normal Image Stored and Saved: Yes Events: Uneventful and Well Tolerated
--- NOTE | 2024-02-21 17:05 | P.ANPRN ---
Procedure Note - Anesthesia - Nerve Block Performed Left iPack Single Time Out Performed: Yes (0835) Date of Procedure: 02/21/24 Procedure Start Time: :42 Procedure Stop Time: 08:45 Location of Patient: PreOp Indication: Acute Post-Operative Pain, Requested by Surgeon Specifically requested for management of pain by DrTristen: Parveen Espitia Sedation Type: Sedate with meaningful contact maintained Preparation: Sterile Prep Position: Supine Catheter: None Needle Types: Pajunk Needle Gauge: 21 Ultrasound used to visualize needle placement: Yes Ultrasound used to observe medication spread: Yes Injectate: 0.5% Ropivacaine (see comment for volume) (15cc +10cc nacl pf) Blood Aspirated: No Pain Paresthesia on Injection Noted: No Resistance on Injection: Normal Image Stored and Saved: Yes Events: Uneventful and Well Tolerated
[2024-02-21 17:13] LABS: Glucose,Whole Blood 214 mg/dL (70-110)
[2024-02-21 20:47] LABS: Glucose,Whole Blood 250 mg/dL (70-110)
[2024-02-21] MEDS: SODIUM CHLORIDE 0.9% 1,000 ML IV SCH (21:18)
[2024-02-21] MEDS: SENNOSIDES-DOCUSATE SODIUM 1 EACH TAB PO SCH (21:25)
[2024-02-21] MEDS ORDERED: ZOLPIDEM 5 MG TAB PO PRN (22:12)
[2024-02-21] MEDS: INSULIN ASPART (NovoLOG) 100 UNIT/ML VIAL SQ SCH (23:34)
[2024-02-21] MEDS: HYDROcodone/APAP 7.5-325MG 1 EACH TAB PO PRN (23:34)
[2024-02-22 04:50] LABS: Glucose,Whole Blood 128 mg/dL (70-110)
--- NOTE | 2024-02-22 08:09 | P.PN ---
Progress Note - Text Progress Note Date: 02/22/24 (885) Anesthesiology Postop day 1 status post total knee arthroplasty with adductor canal catheter. Patient doing well. VAS 4 out of 10. Gross strength intact in lower extremity. Afebrile. Denies alterations in sensorium. Catheter site intact. Heart regular rate Lungs nonlabored Abdomen nondistended Assessment: Postop day 1 status post total knee arthroplasty with adductor canal catheter Plan: 1.All questions answered. Maintain catheter 2 more days with patient removal at home. Instructions to be given at discharge. 2.This note was dictated using [employer] software. Please be advised there is a potential for misspellings or errors in petroleum geology faculty member.
[2024-02-22] MEDS: SERTRALINE 50 MG TAB PO SCH (08:30)
[2024-02-22] MEDS: amLODIPine 5 MG TAB PO SCH (08:30)
[2024-02-22] MEDS: INSULIN DETEMIR (LEVEMIR) 100 UNIT/ML SYR SQ SCH (08:32)
[2024-02-22] MEDS: APIXABAN 2.5 MG TABLET PO SCH (08:32)
[2024-02-22] MEDS: METOPROLOL TARTRATE 50 MG TAB PO SCH (08:32)
[2024-02-22 08:35] LABS: Basophils # (A) 0.02 X 10*3/uL (0.00-0.10); Basophils % (A) 0.3 %; Eosinophils # (A) 0.02 X 10*3/uL (0.04-0.35); Eosinophils % (A) 0.3 %; HCT 33.4 % (37.2-46.3); Lymphocytes # (A) 1.05 X 10*3/uL (0.90-5.00); Lymphocytes % (A) 13.2 %; MCH 31.9 pg (27.0-32.0); MCHC 32.9 g/dL (32.0-37.0); MCV 96.8 FL (80.0-97.0); Monocytes # (A) 1.07 X 10*3/uL (0.20-1.00); Monocytes % (A) 13.4 %; NRBC Per 100 WBC 0 X 10*3/uL (0.00-0.01); Neutrophils # (A) 5.78 X 10*3/uL (1.80-7.70); Neutrophils % (A) 72.4 %; Platelet Count 209 X 10*3/uL (140-440); RBC 3.45 X 10*6/uL (4.10-5.20); WBC 7.97 X 10*3/uL (4.50-10.00)
[2024-02-22] MEDS: HYDROcodone/APAP 7.5-325MG 1 EACH TAB PO PRN (08:47)
[2024-02-22] MEDS ORDERED: ALBUTEROL NEBULIZED 2.5 MG/3 ML INHALATION PRN (10:05)
[2024-02-22] MEDS ORDERED: SERTRALINE 100 MG TAB PO SCH (10:15)
[2024-02-22] MEDS ORDERED: NON FORMULARY DRUG (Metoprolol Tartrate [Lopressor] 100 MG Tablet) PO SCH (10:15)
--- NOTE | 2024-02-22 10:23 | P.CONS ---
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 Tolerated procedure well. Reports significant pain throughout the night, currently eased up. Afebrile normal WBCs. Hemoglobin 11, (preoperatively 14.5), platelets 209, (276 preoperatively), blood sugars better controlled this morning. Denies chest pain, palpitations or shortness of breath. Maintaining O2 sats in the 90s on room air. Denies nausea, vomiting or diarrhea. Passing flatus. Denies lightheadedness, dizziness or focal deficits. PT pending. Review of Systems ROS Statement: Those systems with pertinent positive or pertinent negative responses have been documented in the HPI. ROS Other: All systems not noted in ROS Statement are negative. Past Medical History Past Medical History: Blood Disorder, Diabetes Mellitus, Deep Vein Thrombosis (DVT), Hypertension, Pneumonia, Rheumatoid Arthritis (RA), Syncope Additional Past Medical History / Comment(s): CURRENTLY ON BACTRIM FOR RECURRENT CYSTITIS. FREQUENT UTI'S, FREQUENT KIDNEY STONES, HX SEPSIS 2019. DIVERTICULI. JAN 2019 HAD SYNCOPE, UNKNOWN REASON, HIT HEAD, SUTURES (ALL CARDIAC TESTING WAS NEGATIVE). RIGHT PHRENIC NERVE INJURY, PARALYZED RIGHT LOWER LOBE LUNG, POST AXILLARY NERVE BLOCK. HxDVT 55 yrs ago after childbirth. Hx low platelet count after 3rd time having Covid, recovered on it's own, fatigue since having Covid. Dry patches on left leg, saw Tractor Driver no diagnosis, just dry skin. History of Any Multi-Drug Resistant Organisms: None Reported Past Surgical History: Back Surgery, Cholecystectomy, Hysterectomy, Joint Replacement, Orthopedic Surgery, Tonsillectomy Additional Past Surgical History / Comment(s): Laminectomy, cartaract surgery, PLICATION OF DIAPHRAGM RIGHT LUNG, RIGHT TOTAL SHOULDER REPLACEMENT, BASKET EXTRACTION KIDNEY STONES, LITHOTRIPSIES, RIGHT FOOT SURGERY. Past Anesthesia/Blood Transfusion Reactions: Postoperative Nausea & Vomiting (PONV) Additional Past Anesthesia/Blood Transfusion Reaction / Comm: DAMAGE TO PHRENIC NERVE FROM NERVE BLOCK. "PROPOFOL STAYS IN SYSTEM FOR A LONG TIME." Past Psychological History: Anxiety Smoking Status: Former smoker Past Alcohol Use History: None Reported Additional Past Alcohol Use History / Comment(s): quit smoking 30 years ago. Past Drug Use History: None Reported - Past Family History Son(s) Family Medical History: Cancer Additional Family Medical History / Comment(s): Bone and colon cancer, in 2019. Mother Additional Family Medical History / Comment(s): Heart just stopped, and at 70. Father Family Medical History: Cancer Additional Family Medical History / Comment(s): Esophageal cancer. Medications and Allergies Home Medications Medication Instructions Recorded Confirmed Type Metoprolol Tartrate [Lopressor] 100 mg PO BID 10/05/17 02/17/24 History Zolpidem [Ambien] 10 mg PO HS 02/04/19 02/17/24 History Albuterol Inhaler [Ventolin Hfa 2 puff INHALATION Q6H PRN 02/24/19 02/17/24 History Inhaler] Meloxicam [Mobic] 7.5 mg PO BID 01/26/20 02/17/24 History busPIRone HCL [Buspar] 7.5 mg PO BID PRN 01/26/20 02/17/24 History Atorvastatin [Lipitor] 10 mg PO HS 06/23/22 02/17/24 History Budesonide/Formoterol Fumarate 1 puff INHALATION BID 06/23/22 02/17/24 History [Symbicort 160-4.5 Mcg Inhaler] Semaglutide [Ozempic] 1 mg SQ SA 06/23/22 02/17/24 History Insulin Aspart [NovoLOG Flexpen] See Protocol SQ ACHS PRN 07/30/22 02/17/24 History Sertraline [Zoloft] 50 mg PO BID 07/30/22 02/17/24 History amLODIPine [Norvasc] 5 mg PO QAM 07/30/22 02/17/24 History Insulin Degludec [Tresiba] 20 units SQ QAM 02/17/24 02/17/24 History Sulfamethox-Tmp 800-160Mg [Bactrim 1 each PO Q12HR 02/17/24 02/17/24 History Ds] Turmeric (Unknown Dose) 1 tab PO DAILY 02/17/24 02/17/24 History Apixaban [Eliquis] 2.5 mg PO BID 30 Days #60 tab 02/21/24 Rx HYDROcodone/APAP 7.5-325MG [Riparius 1 - 2 tab PO Q6H PRN #32 tab 02/21/24 Rx 7.5-325] Sennosides [Senokot] 2 tab PO DAILY PRN #60 tablet 02/21/24 Rx Allergies Allergy/AdvReac Type Severity Reaction Status Date / Time doxycycline Allergy Dyspnea Verified 02/21/24 07:34 lisinopril Allergy Dyspnea/cou Verified 02/21/24 07:34 gh levofloxacin [From Levaquin] AdvReac Confusion Verified 02/21/24 07:34 propofol AdvReac Stays in Verified 02/21/24 07:34 system a long time Physical Exam Vitals: Vital Signs Temp Pulse Resp BP Pulse Ox 02/22/24 08:00 98.2 F 89 17 115/68 92 L 02/22/24 02:00 98 F 71 105/51 95 02/21/24 21:23 18 02/21/24 20:00 97.4 F L 84 133/62 96 02/21/24 17:14 98.0 F 70 17 126/57 95 02/21/24 16:39 80 16 120/60 96 02/21/24 16:09 65 16 110/65 95 02/21/24 15:39 63 16 154/87 95 02/21/24 15:09 59 L 16 111/51 95 02/21/24 14:39 74 18 122/67 97 02/21/24 14:09 77 18 122/70 97 02/21/24 13:39 81 18 155/80 98 02/21/24 13:09 64 18 142/73 99 02/21/24 12:39 59 L 16 111/65 94 L 02/21/24 12:09 64 18 138/66 94 L 02/21/24 11:54 61 18 129/60 93 L 02/21/24 11:39 72 18 142/69 97 02/21/24 11:24 62 18 151/73 97 02/21/24 11:09 66 18 155/76 97 02/21/24 10:54 97.3 F L 74 20 155/71 98 Intake and Output 02/21/24 02/22/24 02/22/24 22:59 06:59 14:59 Output Total 200 Balance -200 Output: Urine 200 Other: Voiding Method Toilet # Voids 1 1 Weight 76.1 kg VITAL SIGNS: As above GENERAL:A & O X 3, Sitting up in chair, no acute distress HEENT: Normocephalic, atraumatic, conjunctivae normal. eyes normal. MMM. NECK: Supple, No JVD. No thyroid enlargement. No LNs CARDIOVASCULAR: S1, S2 regular.No murmur RESPIRATION: Unlabored, equal air entry, breath sounds diminished in the bases. No rhonchi or crackles. No bronchial breathing. ABDOMEN: Soft, nondistended, nontender,No guarding. no masses palpable. No asc ites, No hepatosplenomegaly.Bowel sounds heard. LEGS: Left lower extremity dressing clean dry and intact , currently with ice over site , minimal edema. no no calf tenderness, clubbing or cyanosis, p ositive DP pulse. NERVOUS SYSTEM: Cranial N 2-12 grossly normal.No focal deficits. Strength and sensation grossly intact. Skin:warm and dry, no rashes noted Results CBC & Chem 7: 02/22/24 04:10 Labs: Abnormal Lab Results - Last 24 Hours (Table) 02/21/24 02/21/24 02/21/24 Range/Units 16:20 17:12 20:45 RBC (4.10-5.20) X 10*6/uL Hgb (12.0-15.0) g/dL Hct (37.2-46.3) % Monocytes # (0.20-1.00) X 10*3/uL Eosinophils # (0.04-0.35) X 10*3/uL POC Glucose (mg/dL) 221 H 214 H 250 H (70-110) mg/dL 02/22/24 02/22/24 Range/Units 04:10 04:47 RBC 3.45 L (4.10-5.20) X 10*6/uL Hgb 11.0 L (12.0-15.0) g/dL Hct 33.4 L (37.2-46.3) % Monocytes # 1.07 H (0.20-1.00) X 10*3/uL Eosinophils # 0.02 L (0.04-0.35) X 10*3/uL POC Glucose (mg/dL) 128 H (70-110) mg/dL Assessment and Plan Assessment: Status post total left knee arthroplasty secondary to osteoarthritis History of DVT History of thrombocytopenia with 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 Pain management and DVT prophylaxis as per primary. Aggressive pulmonary toileting with incentive spirometer reinforced. Tight blood sugar control, Levemir and NovoLog sliding scale insulins ordered ,close monitoring of [facility] PT. discharge planning in progress as per orthopedic surgery. Follow-up in clinic with PCP in 1 week. Thank you for the consult. The impression and plan of care has been dictated as directed. : I performed a history and examination of this patient, discussed the same with the dictator. I agree with the dictator's note ,documented as a scribe. Any additional findings or plans will be noted.
[2024-02-22] MEDS: MELOXICAM 7.5 MG TAB PO SCH (10:54)
[2024-02-22] MEDS: SYMBICORT 160-4.5 MCG INHALER INHALATION SCH (11:00)
[2024-02-22 11:17] LABS: Glucose,Whole Blood 136 mg/dL (70-110)
[2024-02-22] MEDS ORDERED: Acetaminophen-Codeine 300-30mg TAB PO PRN (13:37)
--- NOTE | 2024-02-22 13:40 | P.PN ---
Subjective Progress Note Date: 02/22/24 This is a 78-year-old fe male who is status post left total knee arthroplasty. This is postoperative day #1 And patient is seen and evaluated at bedside today. Patient states that she is doing well, but having issues with pain control. Patient states that [place] makes her sick. Objective - Vital Signs Vital signs: Vital Signs Temp 98.2 F 02/22/24 08:00 Pulse 89 02/22/24 08:00 Resp 17 02/22/24 08:00 BP 115/68 02/22/24 08:00 Pulse Ox 92 L 02/22/24 08:00 FiO2 Intake & Output 02/21/24 02/22/24 02/22/24 18:59 06:59 18:59 Intake Total 2251 Output Total 230 Balance 2020 Weight 76.1 kg Intake: IV 2251 Output: Urine 200 Estimated Blood Loss 30 Other: Voiding Method Toilet # Voids 1 1 - Exam Vital signs are stable. Patient is in no acute distress and is alert and oriented 3. Calf is soft and nontender to palpation. Dressing is clean, dry, and intact. Patient has full foot and ankle motion without pain or difficulty. Sensation intact. Neurovascular status and circulatory status are intact. - Labs CBC & Chem 7: 02/22/24 04:10 Labs: Abnormal Lab Results - Last 24 Hours (Table) 02/21/24 02/21/24 02/21/24 Range/Units 16:20 17:12 20:45 RBC (4.10-5.20) X 10*6/uL Hgb (12.0-15.0) g/dL Hct (37.2-46.3) % Monocytes # (0.20-1.00) X 10*3/uL Eosinophils # (0.04-0.35) X 10*3/uL POC Glucose (mg/dL) 221 H 214 H 250 H (70-110) mg/dL 02/22/24 02/22/24 02/22/24 Range/Units 04:10 04:47 11:16 RBC 3.45 L (4.10-5.20) X 10*6/uL Hgb 11.0 L (12.0-15.0) g/dL Hct 33.4 L (37.2-46.3) % Monocytes # 1.07 H (0.20-1.00) X 10*3/uL Eosinophils # 0.02 L (0.04-0.35) X 10*3/uL POC Glucose (mg/dL) 128 H 136 H (70-110) mg/dL Assessment and Plan (1) Osteoarthritis of left knee Current Visit: Yes Status: Acute Code(s): M17.12 - UNILATERAL PRIMARY OSTEOARTHRITIS, LEFT KNEE SNOMED Code(s): 014254087936322 (2) Status post total left knee replacement Current Visit: Yes Status: Acute Code(s): Z96.652 - PRESENCE OF LEFT ARTIFICIAL KNEE JOINT SNOMED Code(s): 3749401919120 Plan: #1 Continue with routine postoperative care and pain control, leave dressing in place for 7 days. #2 Anticoagulation with Eliquis. #3 Physical therapy today. #4 Appreciate input from internal medicine. #5 Anticipate discharge home with home care in the next 24-48 hours.
[2024-02-22 16:37] LABS: Glucose,Whole Blood 144 mg/dL (70-110)
[2024-02-22] MEDS: Acetaminophen-Codeine 300-30mg TAB PO PRN (19:57)
[2024-02-22] MEDS: busPIRone HCl 5 MG TAB PO PRN (20:11)
[2024-02-22 21:00] LABS: Glucose,Whole Blood 188 mg/dL (70-110)
[2024-02-22 23:41] LABS: Glucose,Whole Blood 162 mg/dL (70-110)
[2024-02-23 06:32] LABS: Glucose,Whole Blood 137 mg/dL (70-110)
--- NOTE | 2024-02-23 09:31 | P.PN ---
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 Tolerated procedure well. Reports significant pain throughout the night, currently eased up. Afebrile normal WBCs. Hemoglobin 11, (preoperatively 14.5), platelets 209, (276 preoperatively), blood sugars better controlled this morning. Denies chest pain, palpitations or shortness of breath. Maintaining O2 sats in the 90s on room air. Denies nausea, vomiting or diarrhea. Passing flatus. Denies lightheadedness, dizziness or focal deficits. PT pending. 02-23-24 pain management adjusted throughout yesterday as per orthopedic surgery. Reported pain during the night, appears better controlled this morning. Ambulating to the bathroom this a.m., tolerated exertion well. Denies lightheadedness, dizziness or focal deficits. Passing flatus. Denies nausea vomiting or diarrhea. Denies chest pain, palpitations or shortness of breath. Afebrile. Blood sugars controlled, hemoglobin A1c 7.0. Objective - Vital Signs Vital signs: Vital Signs Temp 98.1 F 02/23/24 07:46 Pulse 63 02/23/24 07:46 Resp 17 02/23/24 07:46 BP 139/71 02/23/24 07:46 Pulse Ox 95 02/23/24 07:46 FiO2 Intake & Output 02/22/24 02/23/24 02/23/24 18:59 06:59 18:59 Other: Voiding Method Toilet Toilet # Voids 4 2 # Bowel Movements 1 - Exam VITAL SIGNS: Reviewed GENERAL:A & O X 3, conversing fluently /appropriately through bathroom door,NAD. No conversational dyspnea. 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 Discharge planning in progress for today as per orthopedic surgery. pain management and DVT prophylaxis as per primary. Continue aggressive pulmonary toileting with incentive spirometer reinforced post discharge. Follow-up in clinic with PCP in 1 week. The impression and plan of care has been dictated as directed. : I performed a history and examination of this patient, discussed the same with the dictator. I agree with the dictator's note ,documented as a scribe. Any additional findings or plans will be noted.
[2024-02-23] MEDS: amLODIPine 5 MG TAB PO SCH (09:33)
--- NOTE | 2024-02-23 10:47 | P.PN ---
Subjective Progress Note Date: 02/23/24 This is a 78-year-old female who is status post left total knee arthroplasty. This is postoperative day #2 and patient is seen and evaluated at bedside today. Patient states that her pain is better controlled today. Per physical therapy, the patient's blood pressure dropped while attempting the stairs. Objective - Vital Signs Vital signs: Vital Signs Temp 98.1 F 02/23/24 07:46 Pulse 63 02/23/24 08:00 Resp 17 02/23/24 08:00 BP 139/71 02/23/24 07:46 Pulse Ox 95 02/23/24 07:46 FiO2 Intake & Output 02/22/24 02/23/24 02/23/24 18:59 06:59 18:59 Other: Voiding Method Toilet Toilet Toilet # Voids 4 2 # Bowel Movements 1 - Exam Vital signs are stable. Patient is in no acute distress and is alert and oriented 3. Calf is soft and nontender to palpation. Dressing is clean, dry, and intact. Patient has full foot and ankle motion without pain or difficulty. Sensation intact. Neurovascular status and circulatory status are intact. - Labs CBC & Chem 7: 02/22/24 04:10 Labs: Abnormal Lab Results - Last 24 Hours (Table) 02/22/24 02/22/24 02/22/24 Range/Units 04:10 11:16 16:36 POC Glucose (mg/dL) 136 H 144 H (70-110) mg/dL Hemoglobin A1c 7.0 H (<=6.0) % 02/22/24 02/22/24 02/23/24 Range/Units 20:58 23:39 06:31 POC Glucose (mg/dL) 188 H 162 H 137 H (70-110) mg/dL Hemoglobin A1c (<=6.0) % Assessment and Plan (1) Osteoarthritis of left knee Current Visit: Yes Status: Acute Code(s): M17.12 - UNILATERAL PRIMARY OSTEOARTHRITIS, LEFT KNEE SNOMED Code(s): 701660650406287 (2) Status post total left knee replacement Current Visit: Yes Status: Acute Code(s): Z96.652 - PRESENCE OF LEFT ARTIFICIAL KNEE JOINT SNOMED Code(s): 3439667236571 Plan: #1 Continue with routine postoperative care and pain control, leave dressing in place for 7 days. #2 Patient has concerns with taking Eliquis. Appreciate recommendation from internal medicine regarding anticoagulation. #3 Physical therapy today. #4 Appreciate input from internal medicine. #5 Anticipate discharge home with home care in the next 24-48 hours. Patient will benefit from another night to monitor blood pressures. Patient plans to discharge home with home care and states that she lives alone with a sister nearby to support.
[2024-02-23 11:25] LABS: Glucose,Whole Blood 129 mg/dL (70-110)
[2024-02-23 16:37] LABS: Glucose,Whole Blood 163 mg/dL (70-110)
[2024-02-23 21:58] LABS: Glucose,Whole Blood 195 mg/dL (70-110)
[2024-02-23] MEDS: ATORVASTATIN 10 MG TAB PO SCH (21:59)
[2024-02-24 06:35] LABS: Glucose,Whole Blood 158 mg/dL (70-110)
--- NOTE | 2024-02-24 07:37 | P.DS ---
Providers Date of admission: 02/23/24 10:46 Expected date of discharge: 02/24/24 Attending physician: Parveen Espitia Consults: 02/21/24 08:39 Consult Physician Routine Consulting Provider: Romeo Hernandes Consult Reason/Comments: medical management Do you want consulting provider notified?: Yes Primary care physician: Romeo Hernandes MD - Discharge Diagnosis(es) (1) Osteoarthritis of left knee Current Visit: Yes Status: Acute (2) Status post total left knee replacement Current Visit: Yes Status: Acute Hospital Course: This is a 78-year-old female with known history of degenerative arthritis of the left knee. The patient presented for evaluation as an outpatient. After discussion and consideration patient elects to proceed with total knee arthroplasty. The patient is seen preoperatively by Dr. Espitia and medically cleared for surgery by their primary care physician. Patient is [facility] to [facility] on 02[facility]21[facility]2024 for total knee arthroplasty. The procedure is performed without complication or sequelae. The patient is doing well postoperatively. Labs and vital signs are stable on day of discharge. On day of discharge patient's knee incision is healing well. There is minimal erythema. There is no drainage noted at this time. There is minimal soft tissue swelling to the knee. Patient has full foot and ankle motion without difficulty or pain. Calf is soft and nontender to palpation. Neurovascular status to the left lower extremity is intact. Patient is discharged home in good condition. Please see med rec for accurate list of home medications. Plan - Discharge Summary Discharge Rx Participant: Yes New Discharge Prescriptions: New Acetaminophen-Codeine 300-30mg [Tylenol #3] 1 tab PO Q4-6H PRN #30 tablet PRN Reason: Pain Apixaban [Eliquis] 2.5 mg PO BID 30 Days #60 tab Sennosides [Senokot] 2 tab PO DAILY PRN #60 tablet PRN Reason: Constipation No Action Metoprolol Tartrate [Lopressor] 100 mg PO BID Zolpidem [Ambien] 10 mg PO HS Albuterol Inhaler [Ventolin Hfa Inhaler] 2 puff INHALATION Q6H PRN PRN Reason: Shortness Of Breath busPIRone HCL [Buspar] 7.5 mg PO BID PRN PRN Reason: Anxiety Meloxicam [Mobic] 7.5 mg PO BID amLODIPine [Norvasc] 5 mg PO QAM Sulfamethox-Tmp 800-160Mg [Bactrim Ds] 1 each PO Q12HR Semaglutide [Ozempic] 1 mg SQ SA Budesonide/Formoterol Fumarate [Symbicort 160-4.5 Mcg Inhaler] 1 puff INHALATION BID Atorvastatin [Lipitor] 10 mg PO HS Insulin Aspart [NovoLOG Flexpen] See Protocol SQ ACHS PRN PRN Reason: Blood Sugar - High Sertraline [Zoloft] 50 mg PO BID Insulin Degludec [Tresiba] 20 units SQ QAM Turmeric (Unknown Dose) 1 tab PO DAILY Discharge Medication List Metoprolol Tartrate [Lopressor] 100 mg PO BID 10/05/17 [History] Zolpidem [Ambien] 10 mg PO HS 02/04/19 [History] Albuterol Inhaler [Ventolin Hfa Inhaler] 2 puff INHALATION Q6H PRN 02/24/19 [History] Meloxicam [Mobic] 7.5 mg PO BID 01/26/20 [History] busPIRone HCL [Buspar] 7.5 mg PO BID PRN 01/26/20 [History] Atorvastatin [Lipitor] 10 mg PO HS 06/23/22 [History] Budesonide/Formoterol Fumarate [Symbicort 160-4.5 Mcg Inhaler] 1 puff INHALATION BID 06/23/22 [History] Semaglutide [Ozempic] 1 mg SQ SA 06/23/22 [History] Insulin Aspart [NovoLOG Flexpen] See Protocol SQ ACHS PRN 07/30/22 [History] Sertraline [Zoloft] 50 mg PO BID 07/30/22 [History] amLODIPine [Norvasc] 5 mg PO QAM 07/30/22 [History] Insulin Degludec [Tresiba] 20 units SQ QAM 02/17/24 [History] Sulfamethox-Tmp 800-160Mg [Bactrim Ds] 1 each PO Q12HR 02/17/24 [History] Turmeric (Unknown Dose) 1 tab PO DAILY 02/17/24 [History] Apixaban [Eliquis] 2.5 mg PO BID 30 Days #60 tab 02/21/24 [Rx] Sennosides [Senokot] 2 tab PO DAILY PRN #60 tablet 02/21/24 [Rx] Acetaminophen-Codeine 300-30mg [Tylenol #3] 1 tab PO Q4-6H PRN #30 tablet 02/24/24 [Rx] Follow up Appointment(s)/Referral(s): Romeo Hernandes MD [Primary Care Provider] - 1 Week [facility], [NON-STAFF] - 1-2 Days ([facility] will call you to schedule your in home nursing and physical therapy visits. ) Parveen Espitia DO [Doctor of Osteopathic Medicine] - 03/02/24 1:15 pm (with Kathy) Activity/Diet/Wound Care/Special Instructions: Weightbearing as tolerated with a walker. Leave dressing intact. Dressing may be removed by home care nurse or by patient in 7 days. Then change dressing twice daily until follow up. May shower with initial dressing intact and after removal. If dressing become saturated, please remove. Recommend use of compression stockings daily until follow up to help prevent swelling and blood clots. May remove at night before sleeping. Anticoagulation per internal medicine. Please follow up with [facility] and call with any questions or concerns, . Discharge Disposition: HOME WITH HOME HEALTH SERVICES
[2024-02-24 07:49] VITALS: BP 132/76; PULSE 76; RESP 18; TEMP 98.3
[2024-02-24 10:55] LABS: Basophils % (A) 0 %; Eosinophils # (A) 0.2 k/uL (0-0.7); Eosinophils % (A) 3 %; HCT 33.6 % (34.0-46.0); HGB 11.1 gm/dL (11.4-16.0); Lymphocytes % (A) 15 %; MCH 32.6 pg (25.0-35.0); MCHC 33.1 g/dL (31.0-37.0); MCV 98.8 fL (80.0-100.0); Mean Platelet Volume 9.4; Monocytes # (A) 0.6 k/uL (0-1.0); Monocytes % (A) 9 %; Neutrophils # (A) 4.6 k/uL (1.3-7.7); Neutrophils % (A) 72 %; Platelet Count 182 k/uL (150-450); RDW 13.1 % (11.5-15.5); WBC 6.4 k/uL (3.8-10.6)
--- NOTE | 2024-02-24 11:06 | P.PN ---
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 Tolerated procedure well. Reports significant pain throughout the night, currently eased up. Afebrile normal WBCs. Hemoglobin 11, (preoperatively 14.5), platelets 209, (276 preoperatively), blood sugars better controlled this morning. Denies chest pain, palpitations or shortness of breath. Maintaining O2 sats in the 90s on room air. Denies nausea, vomiting or diarrhea. Passing flatus. Denies lightheadedness, dizziness or focal deficits. PT pending. 02-23-24 pain management adjusted throughout yesterday as per orthopedic surgery. Reported pain during the night, appears better controlled this morning. Ambulating to the bathroom this a.m., tolerated exertion well. Denies lightheadedness, dizziness or focal deficits. Passing flatus. Denies nausea vomiting or diarrhea. Denies chest pain, palpitations or shortness of breath. Afebrile. Blood sugars controlled, hemoglobin A1c 7.0. 02/24/2024 patient became lightheaded yesterday while performing the stairs with PT, therefore discharge held. This morning, denies lightheadedness ,dizziness or focal deficits , sitting in chair .Awaiting to complete stairs with PT. denies chest pain, palpitations or shortness of breath. Maintaining O2 sats in the 90s on room air. Expressed concern over anticoagulants, discussed/educated with patient and she is agreeable to proceeding with the Eliquis as prescribed per orthopedic surgery. Platelets stable, 209. Afebrile. Pain controlled. Objective - Vital Signs Vital signs: Vital Signs Temp 98.3 F 02/24/24 06:50 Pulse 76 02/24/24 06:50 Resp 18 02/24/24 10:02 BP 132/76 02/24/24 06:50 Pulse Ox 94 L 02/24/24 06:50 FiO2 Intake & Output 02/23/24 02/24/24 02/24/24 18:59 06:59 18:59 Other: Voiding Method Toilet Toilet # Voids 4 4 - Exam PHYSICAL EXAM: VITAL SIGNS: [Reviewed] GENERAL: Pleasant, sitting up in chair, no acute distress. HEENT: Normocephalic, conjunctivae normal. eyes normal. Conjunctiva normal,MMM NECK: Supple, no JVD. CARDIOVASCULAR: S1, S2 regular.No murmur RESPIRATION: Unlabored, equal air entry, clear to auscultation. ABDOMEN: Soft, nondistended, nontender . No guarding.+BS LEGS: Left lower extremity dressing clean dry and intact , minimal edema. no no calf tenderness, clubbing or cyanosis, positive DP pulse. NERVOUS SYSTEM: Cranial N 2-12 grossly normal.No focal deficits.Strength and sensation grossly intact.. 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 PT/stairs pending. Discharge planning in progress for today as per orthopedic surgery. pain management and DVT prophylaxis as per primary. Maintain aggressive pulmonary toileting with incentive spirometer reinforced for post discharge. Follow-up in clinic with PCP in 1 week. The impression and plan of care has been dictated as directed. : I performed a history and examination of this patient, discussed the same with the dictator. I agree with the dictator's note ,documented as a scribe. Any additional findings or plans will be noted.
== END 2024-02-24 12:53 | disposition home health service (06) | DRG 470 ==
LOC: OR 07:17 → 4SSUR 10:47 → OR 02-23 10:46
PROVIDERS: ADMIT Orthopaedic Surgery; ATTEND Orthopaedic Surgery
PROC: 0SRD069 Replacement of Left Knee Joint with Oxidized Zirconium on Polyethylene Synthetic Substitute, Cemented, Open Approach (ICD-10-PCS; principal; 2024-02-21 09:05)
DX: M17.12 Unilateral primary osteoarthritis, left knee (principal); I12.9 Hypertensive chronic kidney disease with stage 1 through stage 4 chronic kidney disease, or unspecified chronic kidney disease; N18.31 Chronic kidney disease, stage 3a; M06.9 Rheumatoid arthritis, unspecified; F41.9 Anxiety disorder, unspecified; E11.22 Type 2 diabetes mellitus with diabetic chronic kidney disease; G47.30 Sleep apnea, unspecified; G93.39 Other post infection and related fatigue syndromes; U09.9 Post COVID-19 condition, unspecified; Z79.01 Long term (current) use of anticoagulants; Z79.1 Long term (current) use of non-steroidal anti-inflammatories (NSAID); Z79.4 Long term (current) use of insulin; Z79.51 Long term (current) use of inhaled steroids; Z79.899 Other long term (current) drug therapy; Z86.718 Personal history of other venous thrombosis and embolism; Z87.440 Personal history of urinary (tract) infections; Z87.442 Personal history of urinary calculi; Z87.891 Personal history of nicotine dependence; Z96.611 Presence of right artificial shoulder joint; Z88.1 Allergy status to other antibiotic agents; Z88.8 Allergy status to other drugs, medicaments and biological substances; Z87.01 Personal history of pneumonia (recurrent)
CPT/HCPCS: 64448; 64999; 83036; 85025; 94640